=== PATIENT | female | born 1970 | race Caucasian/White ===

== ENCOUNTER 2017-11-13 07:20 | Emergency (ER) | payer MEDICAID, SELFPAY | END 2017-11-13 08:58 | disposition home or self-care (01) | PROVIDERS: Emergency Provider Emergency Medicine; Family Provider Internal Medicine Adolescent Medicine; Visit Provider Emergency Medicine | DX: J06.9 Acute upper respiratory infection, unspecified (principal); Z85.41 Personal history of malignant neoplasm of cervix uteri; J44.9 Chronic obstructive pulmonary disease, unspecified; E03.9 Hypothyroidism, unspecified; Z79.51 Long term (current) use of inhaled steroids; Z79.899 Other long term (current) drug therapy | CPT/HCPCS: 71020; 87275; 87276; 99282 ==

== ENCOUNTER → 2018-01-03 12:33 | Outpatient (CLI) | payer MEDICAID, SELFPAY ==
[2018-01-03 12:37] LABS: Adenovirus,PCR Not Detected (NotDetected); Bordetella Pertussis Not Detected (NotDetected); Chlamydophila Pneumoniae, PCR Not Detected (NotDetected); Coronavirus 229E Not Detected (NotDetected); Coronavirus NL63 Not Detected (NotDetected); Coronavirus OC43 Not Detected (NotDetected); Coronovirus HKU1,PCR Not Detected (NotDetected); Human Metapneumovirus Not Detected (NotDetected); Influenza A, PCR Not Detected (NotDetected); Influenza AH1, 2009 Not Detected (NotDetected); Influenza AH1, PCR Not Detected (NotDetected); Influenza AH3,PCR Not Detected (NotDetected); Influenza B, PCR Not Detected (NotDetected); Mycoplasma Pneumoniae, PCR Not Detected (NotDected); Parainfluenza 1, PCR Not Detected (NotDetected); Parainfluenza 2, PCR Not Detected (NotDetected); Parainfluenza 3, PCR Not Detected (NotDetected); Parainfluenza 4, PCR Not Detected (NotDetected); Respiratory Syncytial Virus Not Detected (NotDetected)
[2018-01-03 19:47] LABS: Rhinovirus/Enterovirus Detected (NotDetected)
== END ==
PROVIDERS: PCP Internal Medicine Adolescent Medicine; Visit Provider Nurse Practitioner Family
DX: R50.9 Fever, unspecified (principal); J06.9 Acute upper respiratory infection, unspecified
CPT/HCPCS: 87486; 87581; 87633; 87798

== ENCOUNTER 2018-02-26 12:18 | Emergency (ER) | payer MEDICAID, SELFPAY ==
[2018-02-26 12:31] VITALS: BP 105/65; PULSE 65; RESP 20; TEMP 36.1; O2SAT 96; BMI 24.2
--- NOTE | 2018-02-26 12:37 | HMH.EDUTC ---
[facility] [place] Disposition Clinical Impression: Pleuritis Disposition: Home, Self-Care Condition on Discharge: Good Instructions: DI for Pleurisy Additional Instructions: Take steroid as prescribed. Use warm compresses on right chest. Return to PCP if symptoms do not improve in 72 hours. Go to ER/UTC if you develop sudden extreme shortness of breath, worsening of symptoms, increasing chest pain, or if a rash erupts along right side. Prescriptions: methylPREDNISolone [Medrol] 4 mg PO DIRECTED 6 Days #1 tab.ds.pk Referrals: Jg Edwards MD [Primary Care Provider] - Time of Disposition: 13:12 Medical Decision Making - Len Inquiry Pt receiving controlled substance: No Vital Signs: 02/26/18 12:31 Temperature 96.9 F L Temperature Source Temporal Artery Scan Pulse Rate [Right Brachial] 65 Respiratory Rate 20 Blood Pressure [Right Arm] 105/65 Blood Pressure Mean [Right Arm] 78 Blood Pressure Source [Right Arm] Automatic Cuff Blood Pressure Position [Right Arm] Sitting 02 Sat by Pulse Oximetry 96 Oxygen Delivery Method Room Air [facility] [place] HPI - General Stated complaint: pain under r breast Time Seen by Provider: 02/26/18 12:50 Mode of Arrival: Ambulatory Source of Information: Patient Limitations: No Limitations Description of Symptoms (Recalled from Triage Doc. by RN): C/O PAIN RIGHT CHEST/BACK UNDER BREAST WITH RESPIRATION AND NONPRODUCTIVE COUGH SINCE SUNDAY HEENT Symptoms (Recalled from RN notes): No Resp Symptoms (Recalled from RN notes): Yes Skin Symptoms (Recalled from RN notes): No MS Symptoms (Recalled from RN notes): No Functional Status (Recalled from RN notes): N/A - History of Present Illness Provider Complaint: Patient presents with 4 days of right sided chest pain worsened by touch to the right side and deep inspiration. She has COPD and reports having a constant cough. 4 days ago her pain started on her right side along her ribs and radiated around her right anterior chest. Today she reports her pain worsening and starting along her right posterior chest. She denies ever getting chicken pox. She has taken Aliev, Ibprofen, and Gabapentin for pain which has not given her any relief. Today when even putting on her bra caused pain she decided to seek care. - Related Data Home Medications Medication Instructions Recorded Confirmed Cetirizine HCl [Zyrtec] 10 mg PO DAILY 02/26/18 02/26/18 Gabapentin [Gabapentin 300mg Cap] 300 mg PO TID 02/26/18 02/26/18 Montelukast Sodium [Singulair 10mg 10 mg PO PM 02/26/18 02/26/18 tablet] SUMAtriptan succinate [Imitrex] 100 mg PO NEEDED PRN 02/26/18 02/26/18 Previous Rx's Medication Instructions Recorded methylPREDNISolone [Medrol] 4 mg PO DIRECTED 6 Days #1 02/26/18 tab.ds.pk Allergies Allergy/AdvReac Type Severity Reaction Status Date / Time No Known Allergies Allergy Verified 02/26/18 12:37 - Worker's Comp Is this a Worker's Comp case?: No [facility] History Medical History: Reports:: Chronic Obstructive Pulmonary Disease (COPD), Migraine (Neuropathy, Allergic Rhinitis) Other Medical History: Reports: Hypothyroidism, Other (Neuropathy) Laterality Cases: Bilateral: Tonsillectomy - Social History Alcohol Intake: never - Psychiatric History Expresses thoughts of harming self/others: None Suicide Plan Description: No Plan ROS Obtained: Yes Systems reviewed as appropriate & no additional complaints - Constitutional Constitutional: Reports as per HPI - Cardiovascular Cardiovascular: Reports as per HPI - Respiratory Respiratory: Yes as per HPI, Yes cough (unchanged from her normal), No coughing up blood, Yes pain on inspiration, Yes pain with cough, No wheezing - Integumentary/Breasts Skin/Breast: Denies rash, Reports skin pain - Neurologic Neurologic: Denies tingling/numbness/burning sensations Physical Exam - General General appearance: alert, in no apparent distress - Eye Eye exam: Present: normal appearanc
--- NOTE | 2018-02-26 12:41 | ED_ITS ---
[facility] [place] Disposition Clinical Impression: Pleuritis Disposition: Home, Self-Care Condition on Discharge: Good Instructions: DI for Pleurisy Additional Instructions: Take steroid as prescribed. Use warm compresses on right chest. Return to PCP if symptoms do not improve in 72 hours. Go to ER/UTC if you develop sudden extreme shortness of breath, worsening of symptoms, increasing chest pain, or if a rash erupts along right side. Prescriptions: methylPREDNISolone [Medrol] 4 mg PO DIRECTED 6 Days #1 tab.ds.pk Referrals: Jg Edwards MD [Primary Care Provider] - Time of Disposition: 13:12 Medical Decision Making - Len Inquiry Pt receiving controlled substance: No Vital Signs: 02/26/18 12:31 Temperature 96.9 F L Temperature Source Temporal Artery Scan Pulse Rate [Right Brachial] 65 Respiratory Rate 20 Blood Pressure [Right Arm] 105/65 Blood Pressure Mean [Right Arm] 78 Blood Pressure Source [Right Arm] Automatic Cuff Blood Pressure Position [Right Arm] Sitting 02 Sat by Pulse Oximetry 96 Oxygen Delivery Method Room Air [facility] [place] HPI - General Stated complaint: pain under r breast Time Seen by Provider: 02/26/18 12:50 Mode of Arrival: Ambulatory Source of Information: Patient Limitations: No Limitations Description of Symptoms (Recalled from Triage Doc. by RN): C/O PAIN RIGHT CHEST/ BACK UNDER BREAST WITH RESPIRATION AND NONPRODUCTIVE COUGH SINCE SUNDAY HEENT Symptoms (Recalled from RN notes): No Resp Symptoms (Recalled from RN notes): Yes Skin Symptoms (Recalled from RN notes): No MS Symptoms (Recalled from RN notes): No Functional Status (Recalled from RN notes): N/A - History of Present Illness Provider Complaint: Patient presents with 4 days of right sided chest pain worsened by touch to the right side and deep inspiration. She has COPD and reports having a constant cough. 4 days ago her pain started on her right side along her ribs and radiated around her right anterior chest. Today she reports her pain worsening and starting along her right posterior chest. She denies ever getting chicken pox. She has taken Aliev, Ibprofen, and Gabapentin for pain which has not given her any relief. Today when even putting on her bra caused pain she decided to seek care. - Related Data Home Medications Medication Instructions Recorded Confirmed Cetirizine HCl [Zyrtec] 10 mg PO DAILY 02/26/18 02/26/18 Gabapentin [Gabapentin 300mg Cap] 300 mg PO TID 02/26/18 02/26/18 Montelukast Sodium [Singulair 10mg 10 mg PO PM 02/26/18 02/26/18 tablet] SUMAtriptan succinate [Imitrex] 100 mg PO NEEDED PRN 02/26/18 02/26/18 Previous Rx's Medication Instructions Recorded methylPREDNISolone [Medrol] 4 mg PO DIRECTED 6 Days #1 02/26/18 tab.ds.pk Allergies Allergy/AdvReac Type Severity Reaction Status Date / Time No Known Allergies Allergy Verified 02/26/18 12:37 - Worker's Comp Is this a Worker's Comp case?: No [facility] History Medical History: Reports:: Chronic Obstructive Pulmonary Disease (COPD), Migraine (Neuropathy, Allergic Rhinitis) Other Medical History: Reports: Hypothyroidism, Other (Neuropathy) Laterality Cases: Bilateral: Tonsillectomy - Social History Alcohol Intake: never - Psychiatric History Expresses thoughts of harming self/others: None Suicide Plan Description: No Plan
[2018-02-26 13:17] VITALS: BP 110/72; PULSE 62; RESP 20; TEMP 36.1; O2SAT 97
== END 2018-02-26 13:19 | disposition home or self-care (01) ==
PROVIDERS: Emergency Provider Emergency Medicine; Family Provider Internal Medicine Adolescent Medicine; PCP Internal Medicine Adolescent Medicine
DX: R09.1 Pleurisy (principal); J44.9 Chronic obstructive pulmonary disease, unspecified; E03.9 Hypothyroidism, unspecified
CPT/HCPCS: 99201

== ENCOUNTER → 2018-10-16 10:23 | Outpatient (CLI) | payer MEDICAID, SELFPAY ==
[2018-10-16 11:25] LABS: Basophils % 0.4 % (0.1-2.0); Eosinophils # 0.1 K/mm3 (0.0-0.4); Eosinophils % 1.3 % (0.1-12.0); Hematocrit 36.7 % (37.0-47.0); Hemoglobin 11.7 g/dL (12.2-16.2); Lymphocytes # 3.1 K/mm3 (0.7-4.5); Mean Corpuscular HGB Conc 31.9 g/dL (31.8-35.4); Mean Corpuscular Hemoglobin 29.6 pg (27.0-31.2); Mean Corpuscular Volume 92.8 fl (81-99); Mean Platelet Volume 8.2 fl (7.4-10.4); Monocytes # 0.5 K/mm3 (0.1-1.0); Monocytes % 5.2 % (1.7-9.3); Neutrophils # 5.4 K/mm3 (1.8-7.8); Neutrophils % 59.1 % (37.0-80.0); Platelet Count 381 K/mm3 (142-424); Red Blood Count 3.95 M/mm3 (4.20-5.40); Red Cell Distribution Width 13.6 % (11.5-17.5); White Blood Count 9.1 K/mm3 (4.8-10.8)
[2018-10-16 14:05] LABS: Alanine Aminotransferase 30 U/L (12-78); Albumin Level 3.8 gm/dL (3.4-5.0); Alkaline Phosphatase 140 U/L (46-116); Anion Gap 13.9 mEq/L (5-15); Aspartate Amino Transferase 15 U/L (15-37); Bilirubin,Total 0.6 mg/dL (0.2-1.0); Blood Urea Nitrogen 13 mg/dL (7-18); Carbon Dioxide 27 mmol/L (21.0-32.0); Chloride 103 mmol/L (98-107); Chol/HDL Ratio 3.3 (1-3.5); Cholesterol 215 mg/dL (140-200); Estimated Glomerular Filt Rate 106 ml/min (>60); Free Thyroxine Index 1.6 ug/dL (5.93-13.13); GFR (African American) 129 ML/MIN (>60); Globulin 3.7 gm/dl (1.3-3.2); Glucose 88 mg/dL (74-106); HDL Cholesterol 65 mg/dL (29-89); LDL Cholesterol 138 mg/dL (0-130); Potassium 3.9 mmoL/L (3.5-5.1); Sodium 140 mmol/L (136-145); T4 (Thyroxine) 6.1 ug/dl (4.7-13.3); Thyroid Stimulating Hormone 32.66 uIU/ml (0.358-3.740); Total Protein,Serum 7.5 gm/dL (6.4-8.2); Triglycerides 61 mg/dL (30-200); Triiodothryronine (T3) Uptake 27 % (31-39); VLDL Cholesterol 12 mg/dL (0-40)
[2018-10-16 14:18] LABS: Calcium 8.9 mg/dL (8.5-10.1)
== END ==
PROVIDERS: PCP Internal Medicine Adolescent Medicine; Visit Provider Nurse Practitioner Family
DX: Z00.00 Encounter for general adult medical examination without abnormal findings (principal); E03.9 Hypothyroidism, unspecified; R63.5 Abnormal weight gain
CPT/HCPCS: 36415; 80053; 80061; 84436; 84443; 84479; 85025

== ENCOUNTER → 2019-04-14 14:49 | Outpatient (CLI) | payer MEDICAID, SELFPAY ==
[2019-04-14 15:22] LABS: Basophils % 0.4 % (0.1-2.0); Eosinophils # 0.1 K/mm3 (0.0-0.4); Eosinophils % 1.3 % (0.1-12.0); Hemoglobin 11.9 g/dL (12.2-16.2); Lymphocytes # 3.1 K/mm3 (0.7-4.5); Lymphocytes % 34.8 % (10-50); Mean Corpuscular HGB Conc 33.9 g/dL (31.8-35.4); Mean Corpuscular Hemoglobin 30.2 pg (27.0-31.2); Mean Corpuscular Volume 88.8 fl (81-99); Mean Platelet Volume 7.5 fl (7.4-10.4); Monocytes # 0.4 K/mm3 (0.1-1.0); Monocytes % 4.4 % (1.7-9.3); Neutrophils # 5.2 K/mm3 (1.8-7.8); Neutrophils % 59.1 % (37.0-80.0); Platelet Count 351 K/mm3 (142-424); Red Blood Count 3.94 M/mm3 (4.20-5.40); Red Cell Distribution Width 13.5 % (11.5-17.5); White Blood Count 8.9 K/mm3 (4.8-10.8)
[2019-04-14 17:43] LABS: Blood Urea Nitrogen 16 mg/dL (7-18); Calcium 8.5 mg/dL (8.5-10.1); Carbon Dioxide 24 mmol/L (21.0-32.0); Chloride 101 mmol/L (98-107); Creatinine,Serum 0.94 mg/dL (0.55-1.02); Estimated Glomerular Filt Rate 63 ml/min (>60); Free T4 (Free Thyroxine) 0.95 ng/dl (0.76-1.46); GFR (African American) 77 ML/MIN (>60); Glucose 87 mg/dL (74-106); Sodium 138 mmol/L (136-145); Thyroid Stimulating Hormone 11.29 uIU/ml (0.358-3.740)
[2019-04-18 13:14] LABS: HSV, IgM I/II Combination 1.12 Ratio (0.00-0.90)
== END ==
PROVIDERS: Visit Provider Nurse Practitioner Family
DX: E03.9 Hypothyroidism, unspecified (principal); N76.0 Acute vaginitis; Z86.2 Personal history of diseases of the blood and blood-forming organs and certain disorders involving the immune mechanism
CPT/HCPCS: 36415; 80048; 80053; 84439; 84443; 85025; 86695; 86790

== ENCOUNTER → 2019-04-28 12:53 | Outpatient (CLI) | payer MEDICAID, SELFPAY ==
--- NOTE | 2019-04-28 13:15 | CA_ITS ---
PROCEDURE: 2-D M-mode and color Doppler study INDICATIONS FOR THE TEST: Chest pain COPD+ Heart Murmur Tobacco Smoking Palpitations Fatigue Syncope Edema Hypertension Diabetes Mellitus Rheumatic Fever SOB+KELLEY+Obesity Hyperlipidemia Family History HD Additional History TDS-OVERLAYING LUNG PATIENT INFORMATION HEIGHT: 64 WEIGHT:171 GENDER: Female B/P:108/65 2-D/M-MODE INTERPRETATION: 2-D MEASUREMENTS OBSERVED VALUES IN CMS Right Ventricular Dimension (RVDd) 1.8 Interventricular Septum (Thickness)(IVsd) 0.8 Left Ventricular Internal Dimensions(LVIDd) 4.8 Left Ventricular Posterior Wall (Thickness)(LVPWd) 0.7 Aortic Root 2.5 Aortic Cusp Separation 2.0 Left Atrial Dimensions (LAD) 3.1 2D 1. Technically difficult study because of the patient's factor and poor acoustic windows 2. Left atrium is normal size, left ventricle is normal size, there is no concentric left ventricular hypertrophy, visually estimated ejection fraction 55% with no regional wall motion abnormality. 3. The right atrium and right ventricle are normal size and contractility. 4. The aortic, mitral and tricuspid valvular grossly normal. 5. The pulmonic valve is poorly present. 6. No significant pericardial effusion noted. DOPPLER INTERROGATION: Doppler interrogation of the aortic, mitral and tricuspid valvular presence of mild mitral and tricuspid regurgitation, tricuspid regurgitation jet velocity is inadequate for calculation of the right ventricular systolic pressure, diastolic parameters are within normal range. CONCLUSION: 1. Normal left ventricular size, preserved left ventricular systolic function, visually estimated ejection fraction of 55% with no regional wall motion abnormality, diastolic parameters are within normal range. 2. Mild mitral and tricuspid regurgitation 3. No significant pericardial effusion noted.
== END ==
PROVIDERS: PCP Internal Medicine Adolescent Medicine; Visit Provider Nurse Practitioner Family
DX: R60.9 Edema, unspecified (principal); R06.09 Other forms of dyspnea
CPT/HCPCS: 93306

== ENCOUNTER 2019-05-21 12:45 | Emergency (ER) | payer MEDICAID, SELFPAY ==
[2019-05-21 12:59] VITALS: BP 121/64; PULSE 84; RESP 18; TEMP 37.1; O2SAT 96; BMI 29.3
[2019-05-21 14:20] VITALS: BP 113/75; PULSE 80; RESP 20; TEMP 36.5; O2SAT 96
--- NOTE | 2019-05-21 15:04 | HMH.EDGENADL ---
ED Disposition Clinical Impression: Sacroiliac inflammation Disposition: Home, Self-Care Condition on Discharge: Good Instructions: DI for Acute Pain -- Adult, DI Sacroiliac Joint Dysfunction Prescriptions: Hydrocodone/Acetaminophen [[place] 7.5-325 Tablet] 1 tab PO QID PRN 3 Days #10 tab PRN Reason: Mild To Moderate Pain predniSONE [Prednisone 50mg Tab] 50 mg PO DAILY 5 Days #5 tab Referrals: Jg Edwards MD [Primary Care Provider] - Forms: Work/School Release Time of Disposition: 18:39 - Critical Care Critical Care Time: No Attestation: On 05/21/19, the high probability of a clinically significant, sudden or life threatening deterioration of the following system(s) required my full and direct attention, intervention and personal management. The time I documented below is in addition to time spent performing reported procedures but includes the following listed in this critical care notation. Medical Decision Making - Medical Records Medical records reviewed: Yes: I reviewed the patient's medical records. - Len Inquiry Pt receiving controlled substance: No Len was queried for this patient: No Vital Signs: 05/21/19 12:59 05/21/19 14:20 05/21/19 18:49 Temperature 98.8 F 97.7 F 98.3 F Temperature Source Oral Oral Oral Pulse Rate 69 Pulse Rate [Left Radial] 84 80 Respiratory Rate 18 20 17 Blood Pressure 133/70 Blood Pressure [Right Arm] 121/64 113/75 Blood Pressure Mean [Right Arm] 83 87 Blood Pressure Source Automatic Cuff Blood Pressure Source [Right Arm] Automatic Cuff Automatic Cuff Blood Pressure Position Sitting Blood Pressure Position [Right Arm] Sitting Sitting 02 Sat by Pulse Oximetry 96 96 Oxygen Delivery Method Room Air Room Air Room Air - Lab Data Lab results reviewed: Yes: I reviewed the patient's lab results. Lab Results 05/21/19 15:40: WBC 11.1 H, RBC 4.30, Hgb 12.7, Hct 39.4, MCV 91.8, MCH 29.6, MCHC 32.3, RDW 13.6, Plt Count 435 H, MPV 8.3, Neut % (Auto) 64.9, Lymph % (Auto) 28.6, [place] % (Auto) 4.0, Eos % (Auto) 2.0, Baso % (Auto) 0.4, Neut # (Auto) 7.2, Lymph # (Auto) 3.2, [place] # (Auto) 0.4, Eos # (Auto) 0.2, Baso # (Auto) 0.1 05/21/19 15:40: Sodium 140, Potassium 3.3 L, Chloride 100, Carbon Dioxide 28, Anion Gap 15.3 H, BUN 13, Creatinine 0.85, Estimated Creat Clear 98, Estimated GFR 71, Est GFR ( Amer) 86, Glucose 93, Calcium 9.2, Total Bilirubin 0.5, AST 34, ALT 63, Alkaline Phosphatase 170 H, Total Protein 8.0, Albumin 3.7, Globulin 4.3 H, Albumin/Globulin Ratio 0.9 L 05/21/19 18:15: Urine Color Yellow, Urine Appearance Clear, Urine pH 6.5, Ur Specific [place] 1.015, Urine Protein Negative, Urine Glucose (UA) Negative, Urine Ketones Negative, Urine Blood Negative, Urine Nitrate Negative, Urine Bilirubin Negative, Urine Urobilinogen 0.2, Ur Leukocyte Esterase Negative, Urine WBC Occasional, Ur Squamous Epith Cells 3-5, Urine Bacteria Trace Result diagrams: 05/21/19 15:40 05/21/19 15:40 Orders (Tests/Meds): ED MEDICATIONS Discontinued Medications Generic Name Dose Route Start Last Admin Trade Name Freq PRN Reason Stop Dose Admin Dexamethasone Sodium Phosphate 8 mg 05/21/19 18:40 05/21/19 18:48 Decadron 4mg/Ml 1ml Vial IV 05/21/19 18:41 8 mg ONCE ONE Administration Lactated Ringer's 1,000 mls @ 999 mls/hr 05/21/19 15:30 05/21/19 15:41 Lactated Ringer's 1000 Ml Bag IV 05/21/19 16:30 999 mls/hr .Q1H1M TRANG Administration Ketorolac Tromethamine 30 mg 05/21/19 15:19 05/21/19 15:41 Toradol 30mg/Ml Vial IV 05/21/19 15:20 30 mg ONCE ONE Administration General Adult HPI - General Chief complaint: PAIN Stated complaint: Back and Hip Pain Time Seen by Provider: 05/21/19 13:10 Mode of Arrival: Ambulatory Limitations: No Limitations Description of Symptoms (Recalled from ER Triage Doc. by RN): c/o left hip and back pain that is chronic but has increased with pain over the past few weeks. She has had to increase
--- NOTE | 2019-05-21 15:15 | CT_ITS ---
CT abdomen pelvis wo con CLINICAL INDICATION: ITS.REASON: llq pain, severe diarrhea ORDERING PHYSICIAN: Esteban Herzog MD PATIENT AGE: 48 years COMPARISON: None TECHNIQUE: Axial images obtained with sagittal and coronal reformats. All CT scans at the facility use one or more dose reduction, viz: automated exposure control, ma/kV adjustment per patient size (including targeted exams where dose is matched to indication, i.e. head), or iterative reconstruction technique. PROCEDURE: Oral Contrast: None IV Contrast: None . FINDINGS: Lower thorax: No acute finding ABDOMEN: Liver: No masses or biliary dilatation. Gallbladder: Nondistended. No radio opaque stones. Pancreas: No masses or peripancreatic fluid collections. Spleen: Unremarkable. Adrenals: Unremarkable Kidneys/ureters: There is a 1 mm stone in the lower pole calyx of the right kidney. There is no hydronephrosis bilaterally. Visualized portions of the ureter are normal. Stomach bowel: GI tract is unremarkable except there are one or 2 small diverticula involving distal descending colon. There is no pericolonic inflammation or fluid collections. Appendix: No evidence of appendicitis. PELVIS: Reproductive: Unremarkable Bladder: Nondistended. No obvious stones or masses. ABDOMEN & PELVIS: Peritoneum: No abnormal fluid collections. No obvious inflammatory changes. No free air. Lymph nodes: No enlarged lymph nodes apparent. Vasculature: No evidence of abdominal aortic aneurysm. No retroperitoneal hemorrhage evident. Bones: No acute fracture IMPRESSION: Nonobstructing right nephrolithiasis. Mesenteric hazy density with small lymph nodes suggesting benign panniculitis. Diffuse narrowing of the colon from peristalsis possibly related to spasm. No other acute process.
--- NOTE | 2019-05-21 15:20 | ED_ITS ---
ED Disposition Clinical Impression: Sacroiliac inflammation Disposition: Home, Self-Care Condition on Discharge: Good Instructions: DI for Acute Pain -- Adult, DI Sacroiliac Joint Dysfunction Prescriptions: Hydrocodone/Acetaminophen [[place] 7.5-325 Tablet] 1 tab PO QID PRN 3 Days #10 tab PRN Reason: Mild To Moderate Pain predniSONE [Prednisone 50mg Tab] 50 mg PO DAILY 5 Days #5 tab Referrals: Jg Edwards MD [Primary Care Provider] - Forms: Work/School Release Time of Disposition: 18:39 - Critical Care Critical Care Time: No Attestation: On 05/21/19, the high probability of a clinically significant, sudden or life threatening deterioration of the following system(s) required my full and direct attention, intervention and personal management. The time I documented below is in addition to time spent performing reported procedures but includes the following listed in this critical care notation. Medical Decision Making - Medical Records Medical records reviewed: Yes: I reviewed the patient's medical records. - Len Inquiry Pt receiving controlled substance: No Len was queried for this patient: No Vital Signs: 05/21/19 12:59 05/21/19 14:20 05/21/19 18:49 Temperature 98.8 F 97.7 F 98.3 F Temperature Source Oral Oral Oral Pulse Rate 69 Pulse Rate [Left Radial] 84 80 Respiratory Rate 18 20 17 Blood Pressure 133/70 Blood Pressure [Right Arm] 121/64 113/75 Blood Pressure Mean [Right Arm] 83 87 Blood Pressure Source Automatic Cuff Blood Pressure Source [Right Arm] Automatic Cuff Automatic Cuff Blood Pressure Position Sitting Blood Pressure Position [Right Arm] Sitting Sitting 02 Sat by Pulse Oximetry 96 96 Oxygen Delivery Method Room Air Room Air Room Air - Lab Data Lab results reviewed: Yes: I reviewed the patient's lab results. Lab Results 05/21/19 15:40: WBC 11.1 H, RBC 4.30, Hgb 12.7, Hct 39.4, MCV 91.8, MCH 29.6, MCHC 32.3, RDW 13.6, Plt Count 435 H, MPV 8.3, Neut % (Auto) 64.9, Lymph % (Auto) 28.6, [place] % (Auto) 4.0, Eos % (Auto) 2.0, Baso % (Auto) 0.4, Neut # (Auto) 7.2, Lymph # (Auto) 3.2, [place] # (Auto) 0.4, Eos # (Auto) 0.2, Baso # (Auto) 0.1 05/21/19 15:40: Sodium 140, Potassium 3.3 L, Chloride 100, Carbon Dioxide 28, Anion Gap 15.3 H, BUN 13, Creatinine 0.85, Estimated Creat Clear 98, Estimated GFR 71, Est GFR ( Amer) 86, Glucose 93, Calcium 9.2, Total Bilirubin 0.5, AST 34, ALT 63, Alkaline Phosphatase 170 H, Total Protein 8.0, Albumin 3.7, Globulin 4.3 H, Albumin/Globulin Ratio 0.9 L 05/21/19 18:15: Urine Color Yellow, Urine Appearance Clear, Urine pH 6.5, Ur Specific [place] 1.015, Urine Protein Negative, Urine Glucose (UA) Negative, Urine Ketones Negative, Urine Blood Negative, Urine Nitrate Negative, Urine Bilirubin Negative, Urine Urobilinogen 0.2, Ur Leukocyte Esterase Negative, Urine WBC Occasional, Ur Squamous Epith Cells 3-5, Urine Bacteria Trace Result diagrams: 05/21/19 15:40 05/21/19 15:40 Orders (Tests/Meds): ED MEDICATIONS Discontinued Medications Generic Name Dose Route Start Last Admin Trade Name Freq PRN Reason Stop Dose Admin Dexamethasone Sodium Phosphate 8 mg 05/21/19 18:40 05/21/19 18:48 Decadron 4mg/Ml 1ml Vial IV 05/21/19 18:41 8 mg
--- NOTE | 2019-05-21 15:33 | PC.NURSE ---
notified Rad of ct order
--- NOTE | 2019-05-21 15:49 | PC.NURSE ---
Pt to rad
[2019-05-21 15:50] LABS: Basophils # 0.1 K/mm3 (0-0.2); Basophils % 0.4 % (0.1-2.0); Eosinophils # 0.2 K/mm3 (0.0-0.4); Hematocrit 39.4 % (37.0-47.0); Hemoglobin 12.7 g/dL (12.2-16.2); Lymphocytes # 3.2 K/mm3 (0.7-4.5); Lymphocytes % 28.6 % (10-50); Mean Corpuscular HGB Conc 32.3 g/dL (31.8-35.4); Mean Corpuscular Hemoglobin 29.6 pg (27.0-31.2); Mean Corpuscular Volume 91.8 fl (81-99); Mean Platelet Volume 8.3 fl (7.4-10.4); Monocytes # 0.4 K/mm3 (0.1-1.0); Neutrophils # 7.2 K/mm3 (1.8-7.8); Neutrophils % 64.9 % (37.0-80.0); Platelet Count 435 K/mm3 (142-424); Red Cell Distribution Width 13.6 % (11.5-17.5); White Blood Count 11.1 K/mm3 (4.8-10.8)
[2019-05-21 16:01] LABS: Alanine Aminotransferase 63 U/L (12-78); Albumin Level 3.7 gm/dL (3.4-5.0); Albumin/Globulin Ratio 0.9 (1.1-1.8); Alkaline Phosphatase 170 U/L (46-116); Anion Gap 15.3 mEq/L (5-15); Aspartate Amino Transferase 34 U/L (15-37); Bilirubin,Total 0.5 mg/dL (0.2-1.0); Blood Urea Nitrogen 13 mg/dL (7-18); Calcium 9.2 mg/dL (8.5-10.1); Carbon Dioxide 28 mmol/L (21.0-32.0); Chloride 100 mmol/L (98-107); Creatinine Clearance Estimated 98 mL/min (50-200); Creatinine,Serum 0.85 mg/dL (0.55-1.02); Estimated Glomerular Filt Rate 71 ml/min (>60); GFR (African American) 86 ML/MIN (>60); Globulin 4.3 gm/dl (1.3-3.2); Glucose 93 mg/dL (74-106); Potassium 3.3 mmoL/L (3.5-5.1); Sodium 140 mmol/L (136-145)
[2019-05-21 18:19] LABS: Microscopic, Urine URINE MICROSCOPIC (MICROSCOPIC)
[2019-05-21 18:21] LABS: Appearance,Urine CLEAR (Clear); Bilirubin,Urine Negative (Negative); Blood, Urine Negative (Negative); Color,Urine YELLOW (Yellow); Glucose,Urine (UA) Negative (Negative); Ketones,Urine Negative (Negative); Leukocyte Esterase,Urine Negative (Negative); Nitrate,Urine Negative (Negative); PH,Urine 6.5 (5.0-8.5); Protein,Urine Negative (Negative); Specific Gravity, Urine 1.015 (1.005-1.030); Urobilinogen,Urine 0.2 EU/dl (0.2)
[2019-05-21 18:34] LABS: Bacteria,Urine Trace /lpf; WBC,Urine Occasional #/hpf (0-3)
[2019-05-21 18:49] VITALS: BP 133/70; PULSE 69; RESP 17; TEMP 36.8; O2SAT 98
== END 2019-05-21 18:57 | disposition home or self-care (01) ==
PROVIDERS: Emergency Provider Emergency Medicine; PCP Internal Medicine Adolescent Medicine
DX: M46.1 Sacroiliitis, not elsewhere classified (principal); J44.9 Chronic obstructive pulmonary disease, unspecified; E03.9 Hypothyroidism, unspecified
CPT/HCPCS: 74176; 80053; 81001; 85025; 96365; 96375; 99283

== ENCOUNTER → 2019-06-27 14:51 | Outpatient (CLI) | payer MEDICAID, SELFPAY ==
--- NOTE | 2019-06-27 15:26 | US_ITS ---
US transvaginal HISTORY: Pelvic pain ITS.REASON: lower abd pain,h/o cervical ca ORDERING PHYSICIAN: Johana Vaughn APRN PATIENT AGE: 48 years Comparison: None FINDINGS: There has been a prior hysterectomy. The right ovary has also been removed. The left ovary has an unremarkable appearance measuring 18 x 17 mm. No adnexal mass or cul-de-sac fluid. No pelvic mass apparent. IMPRESSION: Prior hysterectomy and right oophorectomy. Unremarkable appearing left ovary with no pelvic mass or fluid collection apparent
== END ==
PROVIDERS: PCP Internal Medicine Adolescent Medicine; Visit Provider Nurse Practitioner Family
DX: R10.30 Lower abdominal pain, unspecified (principal); Z85.41 Personal history of malignant neoplasm of cervix uteri
CPT/HCPCS: 76830

== ENCOUNTER → 2019-07-24 07:10 | Outpatient (CLI) | payer MEDICAID, SELFPAY ==
[2019-07-24 07:34] LABS: Basophils # 0.1 K/mm3 (0-0.2); Basophils % 0.6 % (0.1-2.0); Eosinophils # 0.2 K/mm3 (0.0-0.4); Eosinophils % 1.9 % (0.1-12.0); Hematocrit 36.7 % (37.0-47.0); Hemoglobin 11.8 g/dL (12.2-16.2); Lymphocytes # 3.5 K/mm3 (0.7-4.5); Lymphocytes % 41.4 % (10-50); Mean Corpuscular HGB Conc 32.2 g/dL (31.8-35.4); Mean Corpuscular Hemoglobin 29.3 pg (27.0-31.2); Mean Corpuscular Volume 91.2 fl (81-99); Mean Platelet Volume 7.6 fl (7.4-10.4); Monocytes # 0.5 K/mm3 (0.1-1.0); Monocytes % 5.8 % (1.7-9.3); Neutrophils # 4.3 K/mm3 (1.8-7.8); Neutrophils % 50.3 % (37.0-80.0); Platelet Count 404 K/mm3 (142-424); Red Blood Count 4.03 M/mm3 (4.20-5.40); Red Cell Distribution Width 13.6 % (11.5-17.5); White Blood Count 8.5 K/mm3 (4.8-10.8)
[2019-07-24 10:15] LABS: Alanine Aminotransferase 26 U/L (12-78); Albumin Level 3.6 gm/dL (3.4-5.0); Albumin/Globulin Ratio 1.1 (1.1-1.8); Alkaline Phosphatase 135 U/L (46-116); Anion Gap 15.8 mEq/L (5-15); Aspartate Amino Transferase 18 U/L (15-37); Bilirubin,Total 0.4 mg/dL (0.2-1.0); Blood Urea Nitrogen 15 mg/dL (7-18); Calcium 8.8 mg/dL (8.5-10.1); Carbon Dioxide 23 mmol/L (21.0-32.0); Chloride 105 mmol/L (98-107); Chol/HDL Ratio 5.5 (1-3.5); Cholesterol 191 mg/dL (140-200); Creatinine,Serum 0.79 mg/dL (0.55-1.02); Estimated Glomerular Filt Rate 77 ml/min (>60); Free T4 (Free Thyroxine) 0.77 ng/dl (0.76-1.46); GFR (African American) 94 ML/MIN (>60); Globulin 3.2 gm/dl (1.3-3.2); Glucose 107 mg/dL (74-106); HDL Cholesterol 35 mg/dL (29-89); LDL Cholesterol 120 mg/dL (0-130); Potassium 3.8 mmoL/L (3.5-5.1); Sodium 140 mmol/L (136-145); Thyroid Stimulating Hormone 11.96 uIU/ml (0.358-3.740); Total Protein,Serum 6.8 gm/dL (6.4-8.2); Triglycerides 182 mg/dL (30-200); VLDL Cholesterol 36 mg/dL (0-40)
[2019-07-25 08:13] LABS: Hep A Ab, IgM Negative (Negative); Hepatitis B Core Antibody IgM Negative (Negative); Hepatitis B Surface Antigen Negative (Negative)
[2019-07-25 14:22] LABS: Vitamin B12 232 pg/mL (232-1245); Vitamin D 25 Hydroxy 12.5 ng/mL (30.0-100.0)
[2019-07-25 14:23] LABS: HIV Screen 4th Generation wRfx Non Reactive (Non Reactive); Hepatitis C Antibody <0.1 s/co ratio (0.0-0.9); Rapid Plasma Reagin Ab Titer Non Reactive (NonRea<1:1)
== END ==
PROVIDERS: Visit Provider Nurse Practitioner Family
DX: E03.9 Hypothyroidism, unspecified (principal); E78.5 Hyperlipidemia, unspecified; Z86.2 Personal history of diseases of the blood and blood-forming organs and certain disorders involving the immune mechanism; Z11.3 Encounter for screening for infections with a predominantly sexual mode of transmission
CPT/HCPCS: 36415; 80053; 80061; 80074; 82607; 82652; 84439; 84443; 85025; 86592; 86703; G0432

== ENCOUNTER → 2019-07-31 09:40 | Outpatient (CLI) | payer MEDICAID, SELFPAY ==
--- NOTE | 2019-07-31 09:44 | US_ITS ---
PROCEDURE: US THYROID CLINICAL INDICATION: HYPOTHYROIDISM COMPARISON: No exams were available for comparison FINDINGS: Right lobe: 5.4 x 1.8 x 1.8 cm with heterogeneous echogenicity. 13 mm isoechoic nodule upper pole well-circumscribed. 18 x 13 mm hypoechoic nodule mid polar region posteriorly, 12 mm isoechoic nodule lower pole, 13 mm complex nodule lower pole somewhat irregular in nature., 2 x 1 cm hypoechoic nodule lower pole Left lobe: 4.2 x 1.5 x 1.7 cm. 7 x 7 mm isoechoic nodule mid polar region, 9 mm isoechoic nodule lower pole Isthmus: Mildly thickened at 5 mm Additional findings: IMPRESSION: Multinodular goiter Dictated by: Aquilino Lynn MD 07/31/2019 15:21 Electronically signed by Aquilino Lynn MD in [place] 07/31/2019 15:24
== END ==
PROVIDERS: PCP Nurse Practitioner Family; Visit Provider Nurse Practitioner Family
DX: E03.9 Hypothyroidism, unspecified (principal)
CPT/HCPCS: 76536

== ENCOUNTER → 2019-08-21 09:49 | Outpatient (CLI) | payer MEDICAID, SELFPAY ==
--- NOTE | 2019-08-21 09:52 | MM_ITS ---
PROCEDURE: MM DIG SCREENING MAMM BI W/CAD CLINICAL INDICATION: SCREENING There is a history of breast cancer in the patient's paternal grandmother. COMPARISON: DMSB DIGITAL MAMM-SCREEN BILATERAL from 11/18/2012 TECHNIQUE: Standard CC and MLO images were obtained. R2 CAD reviewed. FINDINGS: Moderate diffuse somewhat heterogenic fibroglandular densities are seen in the central portions of both breasts and the findings of bilateral and symmetrical. There is no new or suspicious lesion in either breast and no suspicious microcalcifications. IMPRESSION: Moderate breast density with no suspicious lesions seen BI-RAD Category: 1 Negative FOLLOW-UP: 1YR 1 Year Follow-up (A letter has been sent to the patient regarding results of the study.) Dictated by: Dr. Zak Eisenberg MD 08/25/2019 16:[address] Zak Eisenberg MD in [place] 08/25/2019 16:22
== END ==
PROVIDERS: PCP Internal Medicine Adolescent Medicine; Visit Provider Nurse Practitioner Family
DX: Z12.31 Encounter for screening mammogram for malignant neoplasm of breast (principal)
CPT/HCPCS: 77067

== ENCOUNTER → 2019-09-03 09:49 | Outpatient (CLI) | payer MEDICAID, SELFPAY ==
--- NOTE | 2019-09-03 09:51 | US_ITS ---
PROCEDURE: US BIOPSY THYROID CLINICAL INDICATION: Goiter Thyroid nodules COMPARISON: US THYROID from 07/31/2019 TECHNIQUE: Following obtaining informed consent, using aseptic technique and local anesthesia with buffered lidocaine, fine-needle aspiration was performed of the nodule of interest using sonographic guidance. 3 passes were made into the nodule with a 21-gauge needle. Specimen was given to cytology. FINDINGS: CYTOLOGY: Nondiagnostic specimen IMPRESSION: Status post ultrasound-guided fine needle aspiration of the dominant nodule in the lower pole on the right. The specimen was nondiagnostic. Repeat FNA can be performed with pathologist present if clinically desired. The patient tolerated the procedure well without evidence of immediate complications and left the ultrasound suite in stable condition. Dictated by: Aquilino Lynn MD 09/05/2019 16:07 Electronically signed by Aquilino Lynn MD in [facility] 09/05/2019 16:07
== END ==
PROVIDERS: PCP Internal Medicine Adolescent Medicine; Visit Provider Otolaryngology
DX: E04.1 Nontoxic single thyroid nodule (principal)
CPT/HCPCS: 10005; 76942

== ENCOUNTER → 2019-10-20 15:31 | Outpatient (CLI) | payer OTHER, SELFPAY ==
[2019-10-20 15:59] LABS: Basophils # 0.1 K/mm3 (0-0.2); Basophils % 0.5 % (0.1-2.0); Eosinophils # 0.2 K/mm3 (0.0-0.4); Eosinophils % 1.5 % (0.1-12.0); Hematocrit 37.4 % (37.0-47.0); Hemoglobin 12.1 g/dL (12.2-16.2); Lymphocytes # 3.8 K/mm3 (0.7-4.5); Lymphocytes % 38.3 % (10-50); Mean Corpuscular HGB Conc 32.4 g/dL (31.8-35.4); Mean Corpuscular Hemoglobin 30.2 pg (27.0-31.2); Mean Corpuscular Volume 93.2 fl (81-99); Mean Platelet Volume 8.6 fl (7.4-10.4); Monocytes # 0.4 K/mm3 (0.1-1.0); Monocytes % 4.1 % (1.7-9.3); Neutrophils # 5.6 K/mm3 (1.8-7.8); Neutrophils % 55.7 % (37.0-80.0); Platelet Count 385 K/mm3 (142-424); Red Blood Count 4.01 M/mm3 (4.20-5.40); Red Cell Distribution Width 13.3 % (11.5-17.5)
[2019-10-20 18:33] LABS: Anion Gap 12.8 mEq/L (5-15); Blood Urea Nitrogen 10 mg/dL (7-18); Calcium 8.8 mg/dL (8.5-10.1); Carbon Dioxide 25 mmol/L (21.0-32.0); Chloride 104 mmol/L (98-107); Creatinine,Serum 0.77 mg/dL (0.55-1.02); Estimated Glomerular Filt Rate 79 ml/min (>60); Free T4 (Free Thyroxine) 0.78 ng/dl (0.76-1.46); GFR (African American) 96 ML/MIN (>60); Glucose 91 mg/dL (74-106); Potassium 3.8 mmoL/L (3.5-5.1); Sodium 138 mmol/L (136-145); Thyroid Stimulating Hormone 7.93 uIU/ml (0.358-3.740)
[2019-10-22 11:45] LABS: Vitamin B12 209 pg/mL (232-1245)
== END ==
PROVIDERS: Visit Provider Nurse Practitioner Family
DX: E03.9 Hypothyroidism, unspecified (principal); R60.9 Edema, unspecified; D64.9 Anemia, unspecified; E53.8 Deficiency of other specified B group vitamins; E55.9 Vitamin D deficiency, unspecified
CPT/HCPCS: 36415; 80048; 82607; 82652; 84439; 84443; 85025

== ENCOUNTER → 2019-11-04 10:15 | Outpatient (CLI) | payer OTHER, SELFPAY ==
[2019-11-04 12:05] LABS: Uric Acid 3.3 mg/dL (2.6-7.2)
== END ==
PROVIDERS: Visit Provider Nurse Practitioner Family
DX: M79.672 Pain in left foot (principal); M79.89 Other specified soft tissue disorders
CPT/HCPCS: 36415; 84550

== ENCOUNTER → 2019-12-10 08:51 | Outpatient (CLI) | payer OTHER, SELFPAY ==
--- NOTE | 2019-12-10 08:52 | FL_ITS ---
PROCEDURE: FL BARIUM SWALLOW CLINICAL INDICATION: difficulty swallowing COMPARISON: US BIOPSY THYROID from 09/03/2019 TECHNIQUE: In the upright position the patient was observed to swallow barium in both the AP and lateral view. The cervical esophagus was examined under fluoroscopy with images obtained. The patient was then placed prone in the right anterior oblique position and was observed to swallow barium with Valsalva technique . FLUOROSCOPY TIME: 54 seconds FINDINGS: There was no evidence of aspiration. There was normal peristalsis. No filling defects or mucosal abnormalities. No masses or strictures.. There was no external compression evident upon the esophagus. There is a small sliding hiatal hernia reproduced with Valsalva IMPRESSION: Small sliding hiatal hernia otherwise negative barium swallow No evidence esophageal deviation or compression in the neck Dictated by: Aquilino Lynn MD 12/11/2019 09:28 Electronically signed by Aquilino Lynn MD in [facility] 12/11/2019 09:28
== END ==
PROVIDERS: PCP Internal Medicine Adolescent Medicine; Visit Provider Otolaryngology
DX: R13.10 Dysphagia, unspecified (principal); E04.9 Nontoxic goiter, unspecified
CPT/HCPCS: 74220

== ENCOUNTER → 2019-12-25 12:51 | Outpatient (CLI) | payer OTHER, SELFPAY ==
--- NOTE | 2019-12-25 12:57 | XR_ITS ---
PROCEDURE: XR FOOT WT BEARING RT 3V CLINICAL INDICATION: foot pain COMPARISON: FTL3 FOOT-LT-3 VIEWS from 04/22/2014 FTR3 FOOT-RT-3 VIEWS from 09/18/2014 FTR3 FOOT-RT-3 VIEWS from 10/01/2014 FINDINGS: No fracture or dislocation. No lytic or blastic change. There is normal mineralization. The joint spaces are well-preserved. No significant degenerative/arthritic changes. No erosive changes evident. Other findings:None. IMPRESSION: Negative right Dictated by: Aquilino Lynn MD 12/25/2019 14:59 Electronically signed by Aquilino Lynn MD in [facility] 12/25/2019 14:59
--- NOTE | 2019-12-25 12:57 | XR_ITS ---
PROCEDURE: XR FOOT WT BEARING LT 3V CLINICAL INDICATION: foot pain COMPARISON: FTL3 FOOT-LT-3 VIEWS from 04/22/2014 FTR3 FOOT-RT-3 VIEWS from 09/18/2014 FTR3 FOOT-RT-3 VIEWS from 10/01/2014 FINDINGS: No fracture or dislocation. No lytic or blastic change. There is normal mineralization. The joint spaces are well-preserved. No significant degenerative/arthritic changes. No erosive changes evident. Other findings:None. IMPRESSION: Negative left foot Dictated by: Aquilino Lynn MD 12/25/2019 15:00 Electronically signed by Aquilino Lynn MD in [facility] 12/25/2019 15:00
== END ==
PROVIDERS: PCP Nurse Practitioner Family; Visit Provider Podiatrist
DX: M79.672 Pain in left foot (principal); M79.671 Pain in right foot
CPT/HCPCS: 73630

== ENCOUNTER → 2020-01-29 16:15 | Outpatient (CLI) | payer OTHER, SELFPAY ==
[2020-01-29 16:44] LABS: Basophils % 0.3 % (0.1-2.0); Eosinophils # 0.2 K/mm3 (0.0-0.4); Eosinophils % 2.2 % (0.1-12.0); Hematocrit 39.2 % (37.0-47.0); Hemoglobin 12.7 g/dL (12.2-16.2); Lymphocytes # 3.6 K/mm3 (0.7-4.5); Mean Corpuscular HGB Conc 32.4 g/dL (31.8-35.4); Mean Corpuscular Hemoglobin 29.8 pg (27.0-31.2); Monocytes # 0.4 K/mm3 (0.1-1.0); Monocytes % 4.2 % (1.7-9.3); Neutrophils # 5.7 K/mm3 (1.8-7.8); Neutrophils % 57.3 % (37.0-80.0); Platelet Count 399 K/mm3 (142-424); Red Blood Count 4.26 M/mm3 (4.20-5.40); Red Cell Distribution Width 13.3 % (11.5-17.5)
[2020-01-29 17:29] LABS: Anion Gap 11.8 mEq/L (5-15); Blood Urea Nitrogen 11 mg/dl (7-17); Calcium 9.8 mg/dl (8.4-10.2); Carbon Dioxide 26 mmol/L (22.0-30.0); Chloride 104 mmol/L (98-107); Estimated Glomerular Filt Rate 106 ml/min (>60); GFR (African American) 128 ML/MIN (>60); Glucose 88 mg/dl (74-100); Potassium 3.8 mmoL/L (3.5-5.1); Sodium 138 mmol/L (136-145)
[2020-01-31 20:42] LABS: Vitamin B12 259 pg/mL (232-1245); Vitamin D 25 Hydroxy 9.9 ng/mL (30.0-100.0)
== END ==
PROVIDERS: Visit Provider Nurse Practitioner Family
DX: E03.9 Hypothyroidism, unspecified (principal); E53.8 Deficiency of other specified B group vitamins; E55.9 Vitamin D deficiency, unspecified
CPT/HCPCS: 36415; 80048; 82607; 82652; 84443; 85025

== ENCOUNTER → 2020-04-28 11:30 | Outpatient (CLI) | payer OTHER, SELFPAY ==
[2020-04-28 13:11] LABS: Coronavirus 19 IgG Antibody Negative (Negative); Coronavirus 19 IgM Antibody Negative (Negative)
== END ==
PROVIDERS: PCP Internal Medicine Adolescent Medicine; Visit Provider Internal Medicine Adolescent Medicine
DX: Z03.818 Encounter for observation for suspected exposure to other biological agents ruled out (principal)
CPT/HCPCS: 36415; 86328

== ENCOUNTER 2020-06-21 15:12 | Emergency (ER) | payer OTHER, SELFPAY ==
[2020-06-21 15:30] VITALS: BP 131/87; PULSE 86; RESP 19; TEMP 36.9; O2SAT 98; BMI 24.0
[2020-06-21 15:39] VITALS: BP 131/87; PULSE 86; RESP 19; TEMP 36.9; O2SAT 98
--- NOTE | 2020-06-21 16:01 | HMH.EDUTC ---
[facility] [place] Disposition Clinical Impression: Contact dermatitis Qualifiers: Contact dermatitis type: allergic Contact dermatitis trigger: unspecified trigger Qualified Code(s): L23.9 - Allergic contact dermatitis, unspecified cause Disposition: Home, Self-Care Condition on Discharge: Good Instructions: DI for Contact Dermatitis Additional Instructions: apply cream steroids as ordered do not scratch return or be seen by pcp if worsen Prescriptions: predniSONE [Prednisone 5mg Tab Dose-Pack] 5 mg PO UD DOSE PK 6 Days #1 pack Prescription Printed Triamcinolone Acetonide 15 gm TP BID 5 Days #1 oint...g. Prescription Printed Referrals: Jg Edwards MD [Primary Care Provider] - Forms: Work/School Release Time of Disposition: 16:11 Medical Decision Making - Len Inquiry Pt receiving controlled substance: No Vital Signs: 06/21/20 15:30 06/21/20 15:39 Temperature 98.4 F 98.4 F Temperature Source Oral Oral Pulse Rate 86 Pulse Rate [Left] 86 Respiratory Rate 19 19 Blood Pressure 131/87 Blood Pressure [Right Arm] 131/87 Blood Pressure Mean [Right Arm] 101 Blood Pressure Source [Right Arm] Automatic Cuff Blood Pressure Position [Right Arm] Sitting 02 Sat by Pulse Oximetry 98 Oxygen Delivery Method Room Air Room Air [facility] [place] HPI - General Chief complaint: Urgent Treatment Center Stated complaint: Feet hives Time Seen by Provider: 06/21/20 16:02 Mode of Arrival: Ambulatory Source of Information: Patient Limitations: No Limitations Description of Symptoms (Recalled from Triage Doc. by RN): rash on bilateral feet HEENT Symptoms (Recalled from RN notes): No Resp Symptoms (Recalled from RN notes): No Skin Symptoms (Recalled from RN notes): Yes (RASH BILATERAL FEET) MS Symptoms (Recalled from RN notes): No Functional Status (Recalled from RN notes): STABLE - History of Present Illness Provider Complaint: 49 yr old female presents for a rash to the top of both feet since sat. pt states no new soap and she is not sure what caused rash. - Related Data Home Medications Medication Instructions Recorded Confirmed Cetirizine HCl [Zyrtec] 10 mg PO DAILY 02/26/18 01/29/20 Gabapentin [Gabapentin 300mg Cap] 300 mg PO TID 02/26/18 01/29/20 Montelukast Sodium [Singulair 10mg 10 mg PO PM 02/26/18 01/29/20 tablet] SUMAtriptan succinate [Imitrex] 100 mg PO NEEDED PRN 02/26/18 01/29/20 levothyroxine 125 mcg capsule 175 mcg PO DAILY cap 12/25/19 01/29/20 linaclotide 290 mcg capsule 290 mcg PO DAILY cap 01/29/20 01/29/20 Previous Rx's Medication Instructions Recorded Fluticasone Propionate [Flonase 2 spr NS DAILY #1 bottle 05/10/18 50mcg nasal spray 16gm] diclofenac sodium 1 % topical gel 4 g TOPICAL QID PRN #100 g 12/25/19 meloxicam 7.5 mg tablet 7.5 mg PO DAILY 30 Days #30 tab 01/29/20 methylprednisolone 4 mg tablets in See Rx Instructions PO PER PKG DIR 01/29/20 a dose pack #21 tab Triamcinolone Acetonide 15 gm TP BID 5 Days #1 oint...g. 06/21/20 predniSONE [Prednisone 5mg Tab 5 mg PO UD DOSE PK 6 Days #1 pack 06/21/20 Dose-Pack] Allergies Allergy/AdvReac Type Severity Reaction Status Date / Time No Known Allergies Allergy Verified 01/29/20 13:12 - Worker's Comp Is this a Worker's Comp case?: No Is this an [facility] Worker's Comp?: No Is this a [facility] Worker's Comp?: No H History - Hepatitis A Screen Drug use history?: No High risk sexual behaviors?: No History of sexually transmitted infection?: No Currently employed?: No Childcare worker?: No Do you have indoor plumbing?: Yes Do you have electricity?: Yes Attestation statement:: This patient has been screened for Hepatitis A risk factors. I have reviewed the patient's past medical history: Yes Medical History: Reports:: Chronic Obstructive Pulmonary Disease (COPD), Migraine Denies:: Cancer, Diabetes Mellitus Type 1, Diabetes Mellitus Type 2, Internal Pacemaker, MRSA Other Medical History: Reports: Hypothyroidism, Oth
== END 2020-06-21 16:12 | disposition home or self-care (01) ==
PROVIDERS: Emergency Provider Nurse Practitioner Family; PCP Internal Medicine Adolescent Medicine
DX: L23.9 Allergic contact dermatitis, unspecified cause (principal); J44.9 Chronic obstructive pulmonary disease, unspecified; G43.709 Chronic migraine without aura, not intractable, without status migrainosus; Z79.899 Other long term (current) drug therapy; E03.9 Hypothyroidism, unspecified; Z90.09 Acquired absence of other part of head and neck
CPT/HCPCS: 99201

== ENCOUNTER → 2020-10-01 16:59 | Outpatient (CLI) | payer OTHER, SELFPAY | PROVIDERS: PCP Internal Medicine Adolescent Medicine; Visit Provider Internal Medicine Adolescent Medicine | DX: Z03.818 Encounter for observation for suspected exposure to other biological agents ruled out (principal) | CPT/HCPCS: U0003 ==

== ENCOUNTER 2020-11-06 12:40 | Emergency (ER) | payer OTHER, SELFPAY ==
[2020-11-06 13:05] VITALS: BP 101/63; PULSE 89; RESP 19; TEMP 36.9; O2SAT 99; BMI 27.6
--- NOTE | 2020-11-06 13:22 | HMH.EDUTC ---
[facility] [place] Disposition Clinical Impression: Migraine Qualifiers: Migraine type: unspecified Status migrainosus presence: without status migrainosus Intractability: not intractable Qualified Code(s): G43.909 - Migraine, unspecified, not intractable, without status migrainosus Disposition: Home, Self-Care Condition on Discharge: Good Instructions: Migraine -- Adult Additional Instructions: Go Home lay down and sleep off remainder of headache *Follow up with Family Doctor if no improvement or any worsening of symptoms Straight to ER if any life threatening symptoms Return if needed Referrals: Jg Edwards MD [Primary Care Provider] - As needed Forms: Work/School Release Medical Decision Making - Len Inquiry Pt receiving controlled substance: No Len was queried for this patient: No Vital Signs: 11/06/20 13:05 Temperature 98.4 F Temperature Source Oral Pulse Rate [Right Brachial] 89 Respiratory Rate 19 Blood Pressure [Right Arm] 101/63 L Blood Pressure Mean [Right Arm] 75 Blood Pressure Source [Right Arm] Automatic Cuff Blood Pressure Position [Right Arm] Sitting 02 Sat by Pulse Oximetry 99 [facility] [place] HPI - General Stated complaint: migraine since last night Time Seen by Provider: 11/06/20 13:24 Mode of Arrival: Family Vehicle Description of Symptoms (Recalled from Triage Doc. by RN): Pt states she has had a migraine since last night HEENT Symptoms (Recalled from RN notes): No Resp Symptoms (Recalled from RN notes): No Skin Symptoms (Recalled from RN notes): No MS Symptoms (Recalled from RN notes): No Functional Status (Recalled from RN notes): wnl - History of Present Illness Provider Complaint: Patient state that she has had migraine headache that started last night States that she has a history of migraines and her imitrex didnt help so she come in to get the Migraine Cocktail States thats he has taken it several times in the past with no complications - Related Data Home Medications Medication Instructions Recorded Confirmed Cetirizine HCl [Zyrtec] 10 mg PO DAILY 02/26/18 01/29/20 Gabapentin [Gabapentin 300mg Cap] 300 mg PO TID 02/26/18 01/29/20 Montelukast Sodium [Singulair 10mg 10 mg PO PM 02/26/18 01/29/20 tablet] SUMAtriptan succinate [Imitrex] 100 mg PO NEEDED PRN 02/26/18 01/29/20 levothyroxine 125 mcg capsule 175 mcg PO DAILY cap 12/25/19 01/29/20 linaclotide 290 mcg capsule 290 mcg PO DAILY cap 01/29/20 01/29/20 Previous Rx's Medication Instructions Recorded Fluticasone Propionate [Flonase 2 spr NS DAILY #1 bottle 05/10/18 50mcg nasal spray 16gm] diclofenac sodium 1 % topical gel 4 g TOPICAL QID PRN #100 g 12/25/19 meloxicam 7.5 mg tablet 7.5 mg PO DAILY 30 Days #30 tab 01/29/20 methylprednisolone 4 mg tablets in See Rx Instructions PO PER PKG DIR 01/29/20 a dose pack #21 tab Triamcinolone Acetonide 15 gm TP BID 5 Days #1 oint...g. 06/21/20 predniSONE [Prednisone 5mg Tab 5 mg PO UD DOSE PK 6 Days #1 pack 06/21/20 Dose-Pack] Allergies Allergy/AdvReac Type Severity Reaction Status Date / Time No Known Allergies Allergy Verified 01/29/20 13:12 - Worker's Comp Is this a Worker's Comp case?: No [facility] History - Hepatitis A Screen Drug use history?: No High risk sexual behaviors?: No History of sexually transmitted infection?: No Currently employed?: No Childcare worker?: No Do you have indoor plumbing?: Yes Do you have electricity?: Yes Attestation statement:: This patient has been screened for Hepatitis A risk factors. I have reviewed the patient's past medical history: Yes Medical History: Reports:: Chronic Obstructive Pulmonary Disease (COPD), Migraine Denies:: Cancer, Diabetes Mellitus Type 1, Diabetes Mellitus Type 2, Internal Pacemaker, MRSA Other Medical History: Reports: Hypothyroidism, Other Laterality Cases: Bilateral: Tonsillectomy, Other Other Surgeries: Yes: Hysterectomy-Partial, Other. No: Pacemaker Amputation: No Fractures: No Comment:
[2020-11-06 13:49] VITALS: BP 101/63; PULSE 89; RESP 19; TEMP 36.9; O2SAT 99
== END 2020-11-06 13:50 | disposition home or self-care (01) ==
PROVIDERS: Emergency Provider Nurse Practitioner; PCP Internal Medicine Adolescent Medicine
DX: G43.909 Migraine, unspecified, not intractable, without status migrainosus (principal); J44.9 Chronic obstructive pulmonary disease, unspecified; E03.9 Hypothyroidism, unspecified; Z90.79 Acquired absence of other genital organ(s); Z79.899 Other long term (current) drug therapy
CPT/HCPCS: 96372; 99201

== ENCOUNTER 2020-12-14 14:30 | Emergency (ER) | payer OTHER, SELFPAY ==
[2020-12-14 14:40] VITALS: BP 102/59; PULSE 65; RESP 20; TEMP 36.8; O2SAT 98; BMI 23.1
--- NOTE | 2020-12-14 14:54 | HMH.EDUTC ---
[facility] [place] Dis[place] Clinical Impression: Vomiting and diarrhea Disposition: Home, Self-Care Condition on Discharge: Good Instructions: DI for Vomiting -- Adult, Nausea and Vomiting-Adult, Diarrhea, Dicyclomine Additional Instructions: ? Avoid fruit juices, as these do not replace minerals and can actually increase diarrhea. ? Children and adults can use sports drinks to replenish electrolytes. Younger children and infants should use products formulated for children, like oral rehydration solutions. ? Eat food in small amounts and let your stomach recover. ? Get lots of rest. You may feel tired or weak. ? No greasy or fried foods for the next 24-48 hours BRAT diet Bananas Rice Apples and [place] ? Make sure to drink plenty of liquids ? Return if needed ? Straight to ER if any life threatening symptoms ? Zofran as prescribed ? Follow up with family doctor in the next 48-72 hours if no improvement or any worsening of symptoms Make sure to keep follow up appointments with your Family Doctor and Specialist Prescriptions: Dicyclomine HCl [Bentyl 10mg capsule] 10 mg PO TID PRN #9 cap PRN Reason: Cramping Transmission Status: Pending to [facility] Referrals: Jg Edwards MD [Primary Care Provider] - As needed Forms: Work/School Release Time of Disposition: 15:00 Medical Decision Making - Len Inquiry Pt receiving controlled substance: No Len was queried for this patient: No Vital Signs: 12/14/20 14:40 Temperature 98.3 F Temperature Source Oral Pulse Rate [Right Brachial] 65 Respiratory Rate 20 Blood Pressure [Right Arm] 102/59 L Blood Pressure Mean [Right Arm] 73 Blood Pressure Source [Right Arm] Automatic Cuff Blood Pressure Position [Right Arm] Sitting 02 Sat by Pulse Oximetry 98 Oxygen Delivery Method Room Air [facility] [place] HPI - General Stated complaint: Stomach Pain Time Seen by Provider: 12/14/20 14:40 Mode of Arrival: Ambulatory Source of Information: Patient Limitations: No Limitations Description of Symptoms (Recalled from Triage Doc. by RN): PATIENT C/O LOWER ABD CRAMPING WITH VOMITING AND DIARRHEA X 2 MONTHS. HAS SEEN PCP FOR IT AND IS AWAITING A TEST FROM SPECIALIST. CALLED INTO WORK TODAY AND IS NEEDING A WORK HEENT Symptoms (Recalled from RN notes): No Resp Symptoms (Recalled from RN notes): No Skin Symptoms (Recalled from RN notes): No MS Symptoms (Recalled from RN notes): No Functional Status (Recalled from RN notes): WNL - History of Present Illness Provider Complaint: Patient states that she has been seeing her PCP for several months due to on and off cramping and diarrhea with N/V State that today she woke up around 4am with vomiting and diarrhea again and had some cramping and had to call into work State that they told her that she had to get a doctors note and she was unable to get in to her PCP and is currently waiting for her appointment with Specialist to undergo some tested States that symptoms are better now just needing to get a doctors note - Related Data Home Medications Medication Instructions Recorded Confirmed Cetirizine HCl [Zyrtec] 10 mg PO DAILY 02/26/18 01/29/20 Gabapentin [Gabapentin 300mg Cap] 300 mg PO TID 02/26/18 01/29/20 Montelukast Sodium [Singulair 10mg 10 mg PO PM 02/26/18 01/29/20 tablet] SUMAtriptan succinate [Imitrex] 100 mg PO NEEDED PRN 02/26/18 01/29/20 levothyroxine 125 mcg capsule 175 mcg PO DAILY cap 12/25/19 01/29/20 linaclotide 290 mcg capsule 290 mcg PO DAILY cap 01/29/20 01/29/20 Previous Rx's Medication Instructions Recorded Fluticasone Propionate [Flonase 2 spr NS DAILY #1 bottle 05/10/18 50mcg nasal spray 16gm] diclofenac sodium 1 % topical gel 4 g TOPICAL QID PRN #100 g 12/25/19 meloxicam 7.5 mg tablet 7.5 mg PO DAILY 30 Days #30 tab 01/29/20 methylprednisolone 4 mg tablets in See Rx Instructions PO PER PKG DIR 01/29/20 a dose pack #21 tab Triamcinolone Acetonide 15 gm TP BID 5 Days #1 oint...g. 06/21/20 predniSONE [P
[2020-12-14 15:01] VITALS: BP 102/59; PULSE 65; RESP 20; TEMP 36.8; O2SAT 98
== END 2020-12-14 15:05 | disposition home or self-care (01) ==
PROVIDERS: Emergency Provider Nurse Practitioner; PCP Internal Medicine Adolescent Medicine
DX: R11.10 Vomiting, unspecified (principal); R19.7 Diarrhea, unspecified; J44.9 Chronic obstructive pulmonary disease, unspecified; E03.9 Hypothyroidism, unspecified; Z79.899 Other long term (current) drug therapy
CPT/HCPCS: 99202; G0463

== ENCOUNTER → 2020-12-14 15:23 | Outpatient (CLI) | payer OTHER, SELFPAY ==
[2020-12-14 16:17] LABS: Basophils # 0.1 K/mm3 (0-0.2); Basophils % 0.5 % (0.1-2.0); Eosinophils # 0.3 K/mm3 (0.0-0.4); Eosinophils % 2.9 % (0.1-12.0); Hematocrit 37.7 % (37.0-47.0); Hemoglobin 12.5 g/dL (12.2-16.2); Lymphocytes # 3.4 K/mm3 (0.7-4.5); Mean Corpuscular HGB Conc 33.2 g/dL (31.8-35.4); Mean Corpuscular Hemoglobin 30.7 pg (27.0-31.2); Mean Corpuscular Volume 92.6 fl (81-99); Mean Platelet Volume 9.1 fl (7.4-10.4); Monocytes # 0.3 K/mm3 (0.1-1.0); Monocytes % 3.5 % (1.7-9.3); Neutrophils # 5.6 K/mm3 (1.8-7.8); Neutrophils % 58.1 % (37.0-80.0); Platelet Count 432 K/mm3 (142-424); Red Blood Count 4.08 M/mm3 (4.20-5.40); Red Cell Distribution Width 13.7 % (11.5-17.5); White Blood Count 9.7 K/mm3 (4.8-10.8)
[2020-12-14 17:15] LABS: Alanine Aminotransferase 16 U/L (12-78); Albumin Level 4.3 g/dl (3.5-5.0); Albumin/Globulin Ratio 1.4 (1.1-1.8); Alkaline Phosphatase 145 U/L (38-126); Anion Gap 12.3 mEq/L (5-15); Aspartate Amino Transferase 24 U/L (14-36); Bilirubin,Total 0.5 mg/dl (0.2-1.3); Blood Urea Nitrogen 12 mg/dl (7-17); Calcium 9.5 mg/dl (8.4-10.2); Carbon Dioxide 26 mmol/L (22.0-30.0); Chloride 104 mmol/L (98-107); Chol/HDL Ratio 3.7 (1-3.5); Cholesterol 216 mg/dl (140-200); Estimated Glomerular Filt Rate 105 ml/min (>60); GFR (African American) 128 ML/MIN (>60); Glucose 94 mg/dl (74-100); HDL Cholesterol 58 mg/dl (40-60); Potassium 4.3 mmoL/L (3.5-5.1); Sodium 138 mmol/L (136-145); Total Protein,Serum 7.3 g/dl (6.3-8.2); Triglycerides 127 mg/dl (30-150); VLDL Cholesterol 25 mg/dL (0-40)
[2020-12-14 17:26] LABS: Direct LDL Cholesterol 120.32 mg/dL (100-129)
[2020-12-14 17:32] LABS: Free T4 (Free Thyroxine) 1.01 ng/dl (0.78-2.19)
[2020-12-14 17:38] LABS: 25-OH Vitamin D, Total < 12.8 ng/mL (30-100)
[2020-12-14 17:46] LABS: Thyroid Stimulating Hormone 4.76 uIU/mL (0.465-4.68)
[2020-12-14 18:04] LABS: Vitamin B12 251 pg/mL (239-931)
[2020-12-16 15:05] LABS: Intact Parathyroid Hormone 40.8 pg/mL (7.5-53.5)
== END ==
PROVIDERS: Internal Medicine Adolescent Medicine; Visit Provider Nurse Practitioner Family
DX: Z00.00 Encounter for general adult medical examination without abnormal findings (principal); E03.9 Hypothyroidism, unspecified; E53.8 Deficiency of other specified B group vitamins; E55.9 Vitamin D deficiency, unspecified; D64.9 Anemia, unspecified
CPT/HCPCS: 36415; 80053; 80061; 82306; 82607; 83970; 84439; 84443; 85025

== ENCOUNTER → 2020-12-16 08:20 | Outpatient (CLI) | payer OTHER, SELFPAY ==
--- NOTE | 2020-12-16 08:40 | MM_ITS ---
PROCEDURE: MM DIG SCREENING MAMM BI W/CAD Digital Breast Tomosynthesis Included CLINICAL INDICATION: SCREENING There is a history of breast cancer in the patient's paternal grandmother. COMPARISON: MG DMSB DIGITAL MAMM-SCREEN BILATERAL from 11/18/2012 MG MM DIG SCREENING MAMM BI W/CAD from 08/21/2019 TECHNIQUE: Standard CC and MLO images and 3D Tomosynthesis was obtained. R2 CAD reviewed. FINDINGS: Moderate diffuse fibroglandular densities are seen in the central portions of both breasts and the findings are bilateral and symmetrical. There is no suspicious lesion and no suspicious microcalcifications. IMPRESSION: Fibrofatty parenchyma with no suspicious lesions seen BI-RAD Category: 1 Negative FOLLOW-UP: 1YR 1 Year Follow-up (A letter has been sent to the patient regarding results of the study.) Dictated by: Dr. Zak Eisenberg MD 12/20/2020 21:34 Dr. Zak Eisenberg MD in [place] 12/20/2020 21:34
== END ==
PROVIDERS: PCP Internal Medicine Adolescent Medicine; Visit Provider Nurse Practitioner Family
DX: Z12.31 Encounter for screening mammogram for malignant neoplasm of breast (principal)
CPT/HCPCS: 77063; 77067

== ENCOUNTER → 2021-01-24 09:18 | Outpatient (CLI) | payer OTHER, SELFPAY ==
--- NOTE | 2021-01-24 09:28 | XR_ITS ---
PROCEDURE: XR HIP LT 2-3V W/PELVIS CLINICAL INDICATION: LT HIP PAIN COMPARISON: CT ABDPELWO CT abdomen pelvis wo con from 05/21/2019 FINDINGS: There are mild osteoarthritic changes of the left hip with minimal acetabular protrusio. No fracture or dislocation. No lytic or blastic changes. Osteophytes are present along the femoral head neck junction. 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
== END ==
PROVIDERS: PCP Nurse Practitioner Family; Visit Provider Nurse Practitioner Family
DX: M25.552 Pain in left hip (principal)
CPT/HCPCS: 73502

== ENCOUNTER 2021-02-14 09:00 | Outpatient (RCR) | payer OTHER, SELFPAY | END 2021-02-14 09:05 | disposition home or self-care (01) | LOC: PT 09:00 | PROVIDERS: PCP Nurse Practitioner Family; Visit Provider Nurse Practitioner Family | DX: M54.5 Low back pain (principal); M46.1 Sacroiliitis, not elsewhere classified | CPT/HCPCS: 97010; 97110; 97163 ==

== ENCOUNTER → 2021-04-18 11:08 | Outpatient (POV) | payer OTHER, SELFPAY | PROVIDERS: Visit Provider Nurse Practitioner Family | DX: Z00.00 Encounter for general adult medical examination without abnormal findings (principal) ==

== ENCOUNTER → 2021-06-17 14:20 | Outpatient (CLI) | payer OTHER, SELFPAY ==
--- NOTE | 2021-06-17 18:10 | PC.NURSE ---
180 Called patient and notified her of positive swab. pt is asymptomatic and has had no contact with any ill people. Dr Mcknight contacted on pt behalf and stated ok to reswab. pt. attempted to contact pt back at [phone]. no answer
== END ==
PROVIDERS: Visit Provider Internal Medicine Gastroenterology
DX: Z01.812 Encounter for preprocedural laboratory examination (principal); Z20.822 Contact with and (suspected) exposure to COVID-19; Z13.810 Encounter for screening for upper gastrointestinal disorder; Z12.11 Encounter for screening for malignant neoplasm of colon
CPT/HCPCS: U0003

== ENCOUNTER 2021-06-20 09:38 | Day surgery (SDC) | payer OTHER, SELFPAY ==
[2021-06-16 07:26] VITALS: BMI 23.5
[2021-06-20] VITALS (7 sets, daily range): BP systolic 103–109; BP diastolic 57–81; PULSE 59–74; RESP 18; TEMP 36.2–36.3; O2SAT 96–98
--- NOTE | 2021-06-20 10:24 | HMH.ANESCL ---
[facility] Anesthesia Checklist - Patient Identification Patient Identification: Arm Band - Structural Data Admitted From: Home Planned Operative Procedure/s: EGD/Colonoscopy Consent for Planned Operative Procedure(s) Verified: Yes Verified Documents: Surgical Consent, History and Physical - NPO Status Verified Time NPO: 00:00 - Additional verifications Anesthesia Reactions: No - Airway Assessment C-Spine Mobility Assessed: Yes (mp2) TMJ Mobility Assessed: Yes Dentition: Good Dentition - Neurological Assessment Level of Consciousness: Awake, Alert - Anesthesia Plan Anesthesia Risk discussed: Yes Anesthesia Plan: Verified ASA Class: III Anesthesia Type: MAC [facility] History I have reviewed the patient's past medical history: Yes Medical History: Reports:: Cancer (cervical), Chronic Obstructive Pulmonary Disease (COPD), Migraine, MRSA (groin) Denies:: Diabetes Mellitus Type 1, Diabetes Mellitus Type 2, Internal Pacemaker, Seizures *Have you ever received a pneumonia vaccine?: Yes *Have you received a flu vaccine this season?: No Other Medical History: Reports: Hypothyroidism, Other Anesthesia experience/problems:: nac Laterality Cases: Bilateral: Tonsillectomy, Other Other Surgeries: Yes: Cholecystectomy, Hysterectomy-Partial, Other. No: Pacemaker Amputation: No Fractures: No - *Social History Last grade of school completed: High school graduate Smoking Status: Never smoker Alcohol Intake: never Alcohol Intake Frequency:: other Substance Use Type: denies use *Occupational Status:: employed Housing: house Household Members: significant other *Travel in the last 8 weeks: None Family Hx:: Cancer, Diabetes, Stroke, Thyroid Disorder
--- NOTE | 2021-06-20 10:40 | HMH.PROC ---
[facility] Procedure Note Procedure Note:: Upper Endoscopy Procedure Report: Esophagogastroduodenoscopy with cold biopsies Endoscopost: Jacoby Thompson II, MD Referring Physician: MIHIR Brar Date of Procedure: June 20, 2021 Equipment: Olympus GIF 190 standard upper endoscope Sedation: MAC sedation Indications: Mrs. Simms is a 50-year-old female with dyspepsia and weight loss. She reports epigastric and generalized abdominal pain and discomfort with nausea, vomiting and diarrhea intermittently. She went to the emergency department in November 2020. She had a diagnostic evaluation and labs. She had a CAT scan in 2019 that showed some panniculitis. She reports heartburn and reflux with epigastric discomfort. She has some early satiety. She states that her maternal aunt had gastric cancer in her 60s. She reports no dysphagia or melena. She has lost 30 to 40 pounds in the last 6 months. She had a negative barium swallow previously. She has been on omeprazole. Procedure: Prior to the procedure, a history and physical exam was performed, and patient's medications and allergies were reviewed. The risks, benefits and alternatives of the sedation and procedure were discussed with the patient. All questions were answered and informed consent was obtained. The patient was brought to the procedure room. Patient identification and proposed procedure were verified by the physician and the nurse. The patient was placed in a left lateral decubitus position and the scope was passed under direct vision. Throughout the procedure, the patient's blood pressure, pulse, and oxygen saturations were monitored continuously. The upper GI endoscopy was accomplished without difficulty. The patient tolerated the procedure well. Findings: The scope was passed directly into the upper esophagus and advanced to the third portion of the duodenum. The post bulbar duodenum and duodenal bulb were normal with normal mucosa and conniventes. Cold biopsies were taken from the post bulbar duodenum to rule out celiac disease. The scope was withdrawn through a normal duodenal bulb and pylorus into the stomach. There was bile reflux with mild linear reactive gastropathy of the antrum. There was mild chronic gastritis of the body and fundus of the stomach. Upon retroflexion there was no hiatal hernia. Cold biopsies were taken from the antrum and lesser curvature to rule out reactive gastropathy and H. pylori. The scope was then withdrawn into the esophagus. There was no evidence of reflux esophagitis or Aguilar's. There was a serrated Z-line and biopsies were taken to rule out nonerosive GERD. There were tertiary contractions and evidence of mild esophageal dysmotility. The remainder of the esophageal mucosa was normal. Impression: 1. Nonerosive GERD with mild esophageal dysmotility 2. Bile reflux with mild linear reactive gastropathy and mild chronic gastritis Plan: I will follow-up the biopsies. We will discuss additional treatment options of her dyspepsia. I do feel that this is related to her obstipation/incomplete bowel evacuation with colonic fermentation/gas formation. I will proceed with diagnostic colonoscopy.
--- NOTE | 2021-06-20 11:24 | P.PCN_ITS ---
[facility] Procedure Note Procedure Note:: Colonoscopy Procedure Report: Colonoscopy with cold snare polypectomy Endoscopist: Jacoby Thompson II, MD Referring physician: MIHIR Brar Date of Procedure: June 20, 2021 Equipment: Olympus 190 variable stiffness pediatric colonoscope Sedation: MAC sedation Indication: Mrs. Simms is a 50-year-old female with abnormal weight loss of 30 to 40 pounds. The patient reports some chronic constipation. She will sometimes alternate with diarrhea. She was placed on Linzess 290 mcg. She also has fa iled MiraLAX, stimulant laxatives, enemas and magnesium citrate. She does report mucus with her bowel movements but no blood. She reports no family history of colon cancer. This is her first colonoscopy. Procedure: Prior to the procedure, a history and physical exam was performed, and patient's medications and allergies were reviewed. The risks, benefits and alternatives of the sedation and procedure were discussed with the patient. All questions were answered and informed consent was obtained. The patient was brought to the procedure room. Patient identification and proposed procedure were verified by the physician and the nurse. The patient was placed in a left lateral decubitus position and the scope was passed under direct vision. Throughout the procedure, the patient's blood pressure, pulse, and oxygen saturations were monitored continuously. The colonoscopy was accomplished without difficulty. The patient tolerated the procedure well. Findings: On digital rectal examination there was normal rectal tone. There were no external hemorrhoids. The colonoscope was introduced through the anal canal to the rectum and advanced to the cecum. The ileocecal valve and appendiceal orifice were identified. The scope was advanced a short distance into the ileum which appeared grossly normal. The scope was then withdrawn into the colon. The cecum, ascending and transverse colon and mucosa were grossly normal. There was a single 6 mm polyp in the descending colon removed via cold snare polypectomy. There were scattered diverticuli throughout the descending and sigmoid colon (LEFT colon). The rectum itself was normal. Upon retroflexion within the rectum there were grade 1-2 internal hemorrhoids. The preparation was excellent throughout with [place] Preparation Score of 9. The cecal time was 12 minutes. Impression: 1. Descending colon polyp 2. Left-sided diverticulosis 3. Grade 1-2 internal hemorrhoids Plan: I will follow up the polyp pathology and recommend repeat colonoscopy again in 7 years based upon the polyp histology. I would encourage a fiber bowel regimen on a long-term daily maintenance basis. I do feel that she has some outlet constipation (pelvic floor dyssynergia).
== END 2021-06-20 12:21 | disposition home or self-care (01) ==
LOC: OUTP 09:39
PROVIDERS: PCP Nurse Practitioner Family; Visit Provider Internal Medicine Gastroenterology
PROC: 0DJ08ZZ Inspection of Upper Intestinal Tract, Via Natural or Artificial Opening Endoscopic (ICD-10-PCS; CPT 43235; principal; 2021-06-20 10:30)
DX: Z68.23 Body mass index [BMI] 23.0-23.9, adult; K63.5 Polyp of colon; K57.30 Diverticulosis of large intestine without perforation or abscess without bleeding; K64.0 First degree hemorrhoids; K21.9 Gastro-esophageal reflux disease without esophagitis; K31.9 Disease of stomach and duodenum, unspecified; K29.50 Unspecified chronic gastritis without bleeding; R63.4 Abnormal weight loss; Z85.41 Personal history of malignant neoplasm of cervix uteri; J44.9 Chronic obstructive pulmonary disease, unspecified; G43.909 Migraine, unspecified, not intractable, without status migrainosus; Z86.14 Personal history of Methicillin resistant Staphylococcus aureus infection
CPT/HCPCS: 45385; 43239

== ENCOUNTER 2021-07-31 10:06 | Emergency (ER) | payer OTHER, SELFPAY ==
[2021-07-31 10:40] VITALS: BP 112/63; PULSE 66; RESP 20; TEMP 37.3; O2SAT 100; BMI 25.2
--- NOTE | 2021-07-31 11:02 | HMH.EDUTC ---
[facility] [place] Disposition Clinical Impression: COVID-19 virus test result unknown Otitis media Qualifiers: Otitis media type: suppurative Chronicity: acute Laterality: left Recurrence: recurrent Spontaneous tympanic membrane rupture: without spontaneous rupture Qualified Code(s): H66.005 - Acute suppurative otitis media without spontaneous rupture of ear drum, recurrent, left ear Disposition: Home, Self-Care Condition on Discharge: Good Instructions: DI for COVID-19 (Suspected or Confirmed ), How to Care for Someone with COVID-19, Ear Infections (Alternative Therapy), Middle Ear Infection Additional Instructions: Start antibiotic as soon as possible and be sure to take as ordered for full length of time even though he should start feeling better in 24-48 hours. Tylenol or Motrin as needed for pain or fever Encourage fluids, water, Gatorade, Powerade, Pedialyte if /toddler/child Warm compresses often helps when placed over ear Return immediately for new or worsening symptoms no noticeable improvement in 48-72 hours and in 10-14 days to ensure the ears are return to baseline. Follow-up with primary care covid swab was sent to lab, call later today for results. self isolate until test results are known to be negative Prescriptions: Azithromycin [Zithromax 250mg tab] 250 mg PO DIRECTED #6 tab Transmission Status: Pending to [facility] Referrals: Jg Edwards MD [Primary Care Provider] - Medical Decision Making - Len Inquiry Pt receiving controlled substance: No Vital Signs: 07/31/21 10:40 Temperature 99.2 F Temperature Source Oral Pulse Rate [Right Brachial] 66 Respiratory Rate 20 Blood Pressure [Right Arm] 112/63 Blood Pressure Mean [Right Arm] 79 Blood Pressure Source [Right Arm] Automatic Cuff Blood Pressure Position [Right Arm] Sitting 02 Sat by Pulse Oximetry 100 Oxygen Delivery Method Room Air Orders (Tests/Meds): ORDERS Category Date Time Status Covid-19 Nasal PCR ([facility]) Routine Lab 07/31/21 10:35 Received [facility] [place] HPI - General Chief complaint: Urgent Treatment Center Stated complaint: cough,headache Time Seen by Provider: 07/31/21 11:02 Mode of Arrival: Ambulatory Source of Information: Patient Limitations: No Limitations Description of Symptoms (Recalled from Triage Doc. by RN): PATIENT C/O HEADACHE THIS MORNING. SHE WAS TREATED FOR SINUS INFECTION LAST WEEK. REQUESTING COVID TEST HEENT Symptoms (Recalled from RN notes): Yes Resp Symptoms (Recalled from RN notes): No Skin Symptoms (Recalled from RN notes): No MS Symptoms (Recalled from RN notes): No Functional Status (Recalled from RN notes): WNL - History of Present Illness Provider Complaint: 50 yr old female presents for fever, saúl ear pain,cough,tiredness, nasal congestion and fatigue. pt states she was treated at dr herrera for ear infection and finished antibiotics and two days later the fever and symptoms returned. - Related Data Home Medications Medication Instructions Recorded Confirmed Cetirizine HCl [Zyrtec] 10 mg PO DAILY 02/26/18 06/27/21 Gabapentin [Gabapentin 300mg Cap] 300 mg PO TID 02/26/18 06/27/21 Montelukast Sodium [Singulair 10mg 10 mg PO PM 02/26/18 06/27/21 tablet] SUMAtriptan succinate [Imitrex] 100 mg PO NEEDED PRN 02/26/18 06/27/21 levothyroxine 125 mcg capsule 175 mcg PO DAILY cap 12/25/19 06/27/21 linaclotide 290 mcg capsule 290 mcg PO DAILY cap 01/29/20 06/27/21 Fluticasone Propionate [Flonase 2 spr NS DAILY 06/16/21 06/27/21 50mcg nasal spray 16gm] Previous Rx's Medication Instructions Recorded meloxicam 7.5 mg tablet 7.5 mg PO DAILY 30 Days #30 tab 01/29/20 ibuprofen 800 mg tablet 800 mg PO Q8H PRN 30 Days #30 tab 06/27/21 Azithromycin [Zithromax 250mg 250 mg PO DIRECTED #6 tab 07/31/21 tab] Allergies Allergy/AdvReac Type Severity Reaction Status Date / Time No Known Allergies Allergy Verified 06/27/21 09:19 - Worker's Comp Is this a Work
[2021-07-31 11:15] VITALS: BP 112/63; PULSE 66; RESP 20; TEMP 37.3; O2SAT 100
== END 2021-07-31 11:18 | disposition home or self-care (01) ==
PROVIDERS: Emergency Provider Nurse Practitioner Family; PCP Internal Medicine Adolescent Medicine
DX: Z20.822 Contact with and (suspected) exposure to COVID-19 (principal)
CPT/HCPCS: 99202; G0463; U0003

== ENCOUNTER 2021-08-03 14:58 | Outpatient (CLI) | payer OTHER, SELFPAY ==
--- NOTE | 2021-08-03 15:02 | XR_ITS ---
PROCEDURE: XR CHEST 2V CLINICAL HISTORY: COUGH COMPARISON: CT [facility] CT CHEST W/ CONTRAST from 03/10/2014 CR CXR CHEST(2 VIEWS-NOT PORTABLE) from 11/29/2016 CR CXR CHEST(2 VIEWS-NOT PORTABLE) from 05/03/2017 CR CXR CHEST(2 VIEWS-NOT PORTABLE) from 11/13/2017 FINDINGS: The cardiomediastinal silhouette and pulmonary vascularity are within normal limits. The lungs are clear without infiltrates, suspicious nodules, or pleural effusions. No acute bony abnormalities. IMPRESSION: No acute findings. Dictated by: Aquilino Lynn MD 08/03/2021 15:31 Aquilino Lynn MD in [place] 08/03/2021 15:31
[2021-08-03 15:41] VITALS: BP 114/50; PULSE 62; RESP 18; O2SAT 98
== END 2021-08-03 15:41 | disposition home or self-care (01) ==
LOC: RAD 14:59
PROVIDERS: PCP Internal Medicine Adolescent Medicine; Visit Provider Nurse Practitioner Family
DX: R05 Cough (principal)
CPT/HCPCS: 71046; 96372

== ENCOUNTER 2021-11-24 09:49 | Emergency (ER) | payer OTHER, SELFPAY ==
[2021-11-24 10:23] LABS: UTC Strep Screen (Rapid) Negative (Negative)
[2021-11-24 10:27] VITALS: BP 133/61; PULSE 62; RESP 18; TEMP 37.1; O2SAT 95; BMI 23.5
--- NOTE | 2021-11-24 10:36 | HMH.EDUTC ---
[facility] [place] Clinical Impression: Otitis media Qualifiers: Otitis media type: unspecified Laterality: right Qualified Code(s): H66.91 - Otitis media, unspecified, right ear Disposition: Home, Self-Care Condition on Discharge: Good Instructions: Middle Ear Infections (Alternative Therapy), Middle Ear Infection, Amoxicillin Additional Instructions: *Monitor Temp, Over the counter Motrin or Tylenol as directed/as needed Tylenol every 4 hours and Motrin every 6 hours (as long as your family doctor has told you that you can take it) for fever or pain. and straight to ER if unable to lower temp less than 101.0 after medication given *Warm salt water gargles may help to soothe the throat *Throat Lozenges *Warm fluids like tea with honey may help to soothe the throat *Sleep elevated *Humidifier/Vaporizer Your throat swab was sent for culture. Those results are typically sent to your primary care. Be sure to follow up in 2-3 days with your family doctor/primary care physician if no improvement so they can review those result and treat if necessary. If you don?t have a primary care doctor, I recommend you get one but in the mean time, you will have to return to a walk in clinic Follow up IMMEDIATELY for new or worsening symptoms or no Noticeable improvement over the next 48-72 hours. 911 for difficulty breathing or swallowing Prescriptions: Benzonatate [Benzonatate 100mg cap] 100 mg PO Q8HP PRN #15 cap PRN Reason: Cough Transmission Status: Received by [facility] Amoxicillin [Amoxicillin 500mg Cap] 500 mg PO TID #30 cap Transmission Status: Received by [facility] methylPREDNISolone [Medrol 4mg tab] 4 mg PO DIRECTED #21 tab Transmission Status: Received by [facility] Referrals: Jg Edwards MD [Primary Care Provider] - As needed Forms: Work/School Release Time of Disposition: 10:55 Medical Decision Making - Len Inquiry Pt receiving controlled substance: No Len was queried for this patient: No Vital Signs: 11/24/21 10:27 Temperature 98.7 F Temperature Source Oral Pulse Rate [Left] 62 Respiratory Rate 18 Blood Pressure [Right Arm] 133/61 Blood Pressure Mean [Right Arm] 85 02 Sat by Pulse Oximetry 95 - Lab Data Lab results reviewed: Yes: I reviewed the patient's lab results. Lab Results 11/24/21 10:20: Strep Scn Rapid Clinic Negative Orders (Tests/Meds): ORDERS Category Date Time Status Strep Screen Confirmation Routine Micro 11/24/21 10:20 Received [facility] [place] - General Stated complaint: sore throat,cough,headache Time Seen by Provider: 11/24/21 10:36 Mode of Arrival: Ambulatory Source of Information: Patient Limitations: No Limitations Description of Symptoms (Recalled from Triage Doc. by RN): pt c/o a JOSE, cough, R ear ache, and sore throat since yesterday. HEENT Symptoms (Recalled from RN notes): Yes (sore throat, JOSE, and R ear ache) Resp Symptoms (Recalled from RN notes): No Skin Symptoms (Recalled from RN notes): No MS Symptoms (Recalled from RN notes): No Functional Status (Recalled from RN notes): wnl - History of Present Illness Provider Complaint: Patient states that she has been having pain in her right ear, sore throat and headache States that she felt like she may have ear infection or strep throat States that today she was still feeling bad so she came in to get checked - Related Data Home Medications Medication Instructions Recorded Confirmed Cetirizine HCl [Zyrtec] 10 mg PO DAILY 02/26/18 06/27/21 Gabapentin [Gabapentin 300mg Cap] 300 mg PO TID 02/26/18 06/27/21 Montelukast Sodium [Singulair 10mg 10 mg PO PM 02/26/18 06/27/21 tablet] SUMAtriptan succinate [Imitrex] 100 mg PO NEEDED PRN 02/26/18 06/27/21 levothyroxine 125 mcg capsule 175 mcg PO DAILY cap 12/25/19 06/27/21 linaclotide 290 mcg capsule 290 mcg PO DAILY cap 01/29/20 06/27/21 Fluticasone Propionate [Flonase 2 spr NS DAILY 06/16/21 06/27/21 50mcg nasa
[2021-11-24 11:32] VITALS: BP 133/61; PULSE 62; RESP 18; TEMP 37.1
== END 2021-11-24 11:32 | disposition home or self-care (01) ==
PROVIDERS: Emergency Provider Nurse Practitioner; PCP Internal Medicine Adolescent Medicine
DX: H66.91 Otitis media, unspecified, right ear (principal); J44.9 Chronic obstructive pulmonary disease, unspecified; E03.9 Hypothyroidism, unspecified
CPT/HCPCS: 87880; 99203; C9803; G0463; U0003; U0005

== ENCOUNTER → 2021-11-30 08:38 | Outpatient (CLI) | payer OTHER, SELFPAY | PROVIDERS: PCP Internal Medicine Adolescent Medicine; Visit Provider Nurse Practitioner | DX: Z20.822 Contact with and (suspected) exposure to COVID-19 (principal) | CPT/HCPCS: C9803; U0003; U0005 ==

== ENCOUNTER → 2021-12-15 08:17 | Outpatient (CLI) | payer OTHER, SELFPAY | PROVIDERS: PCP Internal Medicine Adolescent Medicine; Visit Provider Nurse Practitioner | DX: Z20.822 Contact with and (suspected) exposure to COVID-19 (principal) | CPT/HCPCS: C9803; U0003; U0005 ==

== ENCOUNTER → 2022-01-18 16:03 | Outpatient (CLI) | payer OTHER, SELFPAY ==
--- NOTE | 2022-01-18 16:07 | XR_ITS ---
PROCEDURE INFORMATION: Exam: XR Left Hip Exam date and time: 01/18/2022 4:07 PM Age: 51 years old Clinical indication: Hip pain; Left hip; Additional info: Lt hip pain, lumbar neuralgia TECHNIQUE: Imaging protocol: XR Left hip. Views: 2 or 3 views hip with pelvis when performed. COMPARISON: CR XR HIP LT 2-3V W/PELVIS 01/24/2021 9:28 AM FINDINGS: Bones/joints: Unchanged left hip protrusio acetabuli, which could be related to osteoarthritis versus rheumatoid arthritis or idiopathic causes depending upon clinical presentation. Soft tissues: Unremarkable. IMPRESSION: Unchanged left hip protrusio acetabuli, which could be related to osteoarthritis versus rheumatoid arthritis or idiopathic causes depending upon clinical presentation.
--- NOTE | 2022-01-18 16:07 | XR_ITS ---
PROCEDURE INFORMATION: Exam: XR Lumbosacral Spine Exam date and time: 01/18/2022 4:07 PM Age: 51 years old Clinical indication: Low back pain; Additional info: Lt hip pain, lumbar neuralgia TECHNIQUE: Imaging protocol: XR of the lumbosacral spine. Views: 4 or 5 views. COMPARISON: CR XR HIP LT 2-3V W/PELVIS 01/24/2021 9:28 AM FINDINGS: Bones/joints: Mild loss of intervertebral disc space with degenerative changes at L4 through S1. Soft tissues: Unremarkable. IMPRESSION: Mild loss of intervertebral disc space with degenerative changes at L4 through S1.
--- NOTE | 2022-01-18 16:07 | XR_ITS ---
PROCEDURE INFORMATION: Exam: XR Left Femur Exam date and time: 01/18/2022 4:07 PM Age: 51 years old Clinical indication: Pain; Hip; Left; Additional info: Lt hip pain, lumbar neuralgia TECHNIQUE: Imaging protocol: XR Left femur. Views: 2 views. COMPARISON: CR XR HIP LT 2-3V W/PELVIS 01/24/2021 9:28 AM FINDINGS: Bones/joints: Protrusio acetabuli, which could be related to osteoarthritis versus rheumatoid arthritis or idiopathic causes depending upon clinical presentation. Soft tissues: Unremarkable. IMPRESSION: Unchanged protrusio acetabuli, which could be related to osteoarthritis versus rheumatoid arthritis or idiopathic causes depending upon clinical presentation.
--- NOTE | 2022-01-18 16:07 | XR_ITS ---
PROCEDURE INFORMATION: Exam: XR Bilateral Sacroiliac Joints Exam date and time: 01/18/2022 4:07 PM Age: 51 years old Clinical indication: Pain; Lumbago; Additional info: Lt hip pain, lumbar neuralgia TECHNIQUE: Imaging protocol: XR Bilateral XR of the sacroiliac joints. Views: 3 or more views. COMPARISON: CR XR HIP LT 2-3V W/PELVIS 01/24/2021 9:28 AM FINDINGS: Bones/joints: Unchanged left hip protrusio acetabuli, which could be related to osteoarthritis versus rheumatoid arthritis or idiopathic causes depending upon clinical presentation. No convincing erosions or sclerosis of the sacroiliac joints. Soft tissues: Normal. IMPRESSION: 1. Unchanged left hip protrusio acetabuli, which could be related to osteoarthritis versus rheumatoid arthritis or idiopathic causes depending upon clinical presentation. 2. No convincing erosions or sclerosis of the sacroiliac joints.
== END ==
PROVIDERS: PCP Internal Medicine Adolescent Medicine; Visit Provider Internal Medicine Adolescent Medicine
DX: M53.3 Sacrococcygeal disorders, not elsewhere classified (principal); M54.16 Radiculopathy, lumbar region; M25.552 Pain in left hip
CPT/HCPCS: 72110; 72202; 73502; 73552

== ENCOUNTER 2022-04-19 16:00 | Outpatient (RCR) | payer OTHER, SELFPAY | END 2022-04-19 16:05 | disposition home or self-care (01) | LOC: PT 16:00 | PROVIDERS: PCP Internal Medicine Adolescent Medicine; Visit Provider Orthopaedic Surgery | DX: M70.62 Trochanteric bursitis, left hip (principal); M25.552 Pain in left hip | CPT/HCPCS: 97010; 97014; 97110; 97163; 97164; G0283 ==

== ENCOUNTER 2022-07-15 09:13 | Emergency (ER) | payer OTHER, SELFPAY ==
[2022-07-15 09:45] VITALS: BP 139/44; PULSE 90; RESP 20; TEMP 38; O2SAT 96; BMI 25.5
[2022-07-15 09:59] VITALS: BP 139/44; PULSE 90; RESP 20; TEMP 38; O2SAT 96
--- NOTE | 2022-07-15 10:08 | HMH.EDUTC ---
[facility] [place] Disposition Clinical Impression: Upper respiratory infection, viral, Close exposure to COVID-19 virus Disposition: Home, Self-Care Condition on Discharge: Good Instructions: DI for Viral Upper Respiratory Infection -- Adult, DI for COVID-19 (Suspected or Confirmed ) Additional Instructions: covid swab was sent to lab, call tomorrow for results. self isolate until test results are known to be negative No sign of a bacterial infection. Likely viral. Viruses can take 7-14 days to run their course. Nasal saline and bulb syringe or nose Karin to remove nasal drainage to help with nasal congestion. Hard to eat, drink, sleep with nasal congestion so important to keep this cleaned out. Monitor temp. Tylenol or Motrin as needed for pain or fever Encourage fluids, water, Gatorade, Powerade, Pedialyte if /toddler/child Warm salt water gargles Warm fluids Sore throat lozenges Sleep elevated Humidifier/vaporizer Follow-up immediately for new or worsening symptoms or no noticeable improvement over the next 48-72 hours. Referrals: Jg Edwards MD [Primary Care Provider] - Forms: Work/School Release Time of Disposition: 10:16 Medical Decision Making - Len Inquiry Pt receiving controlled substance: No Vital Signs: 07/15/22 09:45 07/15/22 09:59 Temperature 100.4 F H 100.4 F H Temperature Source Temporal Artery Scan Pulse Rate 90 Pulse Rate [Right Brachial] 90 Respiratory Rate 20 20 Blood Pressure 139/44 L Blood Pressure [Right Arm] 139/44 L Blood Pressure Mean [Right Arm] 75 Blood Pressure Source [Right Arm] Automatic Cuff Blood Pressure Position [Right Arm] Sitting 02 Sat by Pulse Oximetry 96 Oxygen Delivery Method Room Air Orders (Tests/Meds): ORDERS Category Date Time Status Covid-19 Nasal PCR ([facility]) Routine Lab 07/15/22 09:45 Received [facility] [place] HPI - General Chief complaint: Urgent Treatment Center Stated complaint: Fever, cough, sore throat, covid exposure Time Seen by Provider: 07/15/22 10:08 Mode of Arrival: Ambulatory Source of Information: Patient Limitations: No Limitations Description of Symptoms (Recalled from Triage Doc. by RN): PATIENT C/O FEVER, COUGH, AND SORE THROAT THAT STARTED THIS MORNING. 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 family member + for covid - Related Data Home Medications Medication Instructions Recorded Confirmed Cetirizine HCl [Zyrtec] 10 mg PO DAILY 02/26/18 06/27/21 Gabapentin [Gabapentin 300mg Cap] 300 mg PO TID 02/26/18 06/27/21 Montelukast Sodium [Singulair 10mg 10 mg PO PM 02/26/18 06/27/21 tablet] SUMAtriptan succinate [Imitrex] 100 mg PO NEEDED PRN 02/26/18 06/27/21 levothyroxine 125 mcg capsule 175 mcg PO DAILY cap 12/25/19 06/27/21 linaclotide 290 mcg capsule 290 mcg PO DAILY cap 01/29/20 06/27/21 Fluticasone Propionate [Flonase 2 spr NS DAILY 06/16/21 06/27/21 50mcg nasal spray 16gm] Previous Rx's Medication Instructions Recorded meloxicam 7.5 mg tablet 7.5 mg PO DAILY 30 Days #30 tab 01/29/20 ibuprofen 800 mg tablet 800 mg PO Q8H PRN 30 Days #30 tab 06/27/21 Azithromycin [Zithromax 250mg 250 mg PO DIRECTED #6 tab 07/31/21 tab] Amoxicillin [Amoxicillin 500mg 500 mg PO TID #30 cap 11/24/21 Cap] Benzonatate [Benzonatate 100mg 100 mg PO Q8HP PRN #15 cap 11/24/21 cap] methylPREDNISolone [Medrol 4mg 4 mg PO DIRECTED #21 tab 11/24/21 tab] Allergies Allergy/AdvReac Type Severity Reaction Status Date / Time No Known Allergies Allergy Verified 06/27/21 09:19 - Worker's Comp Is this a Worker's Comp case?
== END 2022-07-15 10:23 | disposition home or self-care (01) ==
PROVIDERS: Emergency Provider Nurse Practitioner Family; PCP Internal Medicine Adolescent Medicine
DX: U07.1 COVID-19 (principal); R50.9 Fever, unspecified; J02.8 Acute pharyngitis due to other specified organisms
CPT/HCPCS: 99212; C9803; G0463; U0003; U0005

== ENCOUNTER 2022-09-10 08:20 | Emergency (ER) | payer OTHER, SELFPAY ==
[2022-09-10 08:35] VITALS: BP 120/76; PULSE 63; RESP 20; TEMP 36.9; O2SAT 98; BMI 27.1
--- NOTE | 2022-09-10 08:45 | EXP.UTC ---
Discharge Plan Disposition Patient Disposition: Home, Self-Care Condition: Good Prescriptions Prescriptions: New methylprednisolone [Medrol (Yariel)] 4 mg tablets,dose pack See Rx Instructions .Route .COMPLEX 6 Days Qty: 21 0RF Rx Instructions: taper pack; amoxicillin-pot clavulanate 875-125 mg Tablet 1 tab PO Q12H Qty: 20 0RF No Action levothyroxine 125 mcg capsule 175 mcg PO DAILY ibuprofen 800 mg tablet 800 mg PO Q8H PRN (Reason: pain) 30 Days Qty: 30 2RF linaclotide 290 mcg capsule 290 mcg PO DAILY meloxicam 7.5 mg tablet 7.5 mg PO DAILY 30 Days Qty: 30 2RF cetirizine 10 MG tablet 10 mg PO DAILY sumatriptan succinate 100 MG tablet 100 mg PO NEEDED PRN (Reason: MIGRAINES) gabapentin 300 MG capsule 300 mg PO TID montelukast 10 MG tablet 10 mg PO PM amoxicillin 500 MG capsule 500 mg PO TID Qty: 30 0RF methylprednisolone 4 MG tablet 4 mg PO DIRECTED Qty: 21 0RF Rx Instructions: Take as directed on package instructions benzonatate 100 MG capsule 100 mg PO Q8HP PRN (Reason: Cough) Qty: 15 0RF fluticasone propionate 120 SPR/BOT bottle 2 spr NS DAILY Rx Instructions: each nostril azithromycin 250 MG tablet 250 mg PO DIRECTED Qty: 6 0RF Rx Instructions: Take two (2) tablets on day #1, then one (1) tablet day #2 thru #5 Referrals Follow up/Referrals: Jg Edwards MD [Primary Care Provider] - See instructions Activity Restrictions/Add. Instructions Additional Instructions/Restrictions: *Monitor Temp, Over the counter Motrin or Tylenol as directed/as needed Tylenol every 4 hours and Motrin every 6 hours (as long as your family doctor has told you that you can take it) for fever or pain. and straight to ER if unable to lower temp less than 101.0 after medication given *Warm salt water gargles may help to soothe the throat *Throat Lozenges? *Warm fluids like tea with honey may help to soothe the throat? *Sleep elevated *Humidifier/Vaporizer Follow up IMMEDIATELY for new or worsening symptoms or no Noticeable improvement over the next 48-72 hours. 911 for difficulty breathing or swallowing Clinical Impressions Clinical Impression: Otitis media Instructions Patient Instructions: DI for Sinusitis, Sinusitis, Middle Ear Infection Discharge ED Provider: Kyung Gentile [facility] [place] General Stated complaint: cough, JOSE, Rt ear pain, drainage Time Seen by Provider: 09/10/22 08:45 History of Present Illness Provider Complaint: Patient states that she thinks she has an ear infection and sinus infection States that she has been having pain in her ears worse in the right, sinus pain and pressure and cough feels like it is trying to move into her chest area States that it has continued to get worse over the last couple of days so today she came in Related Data Home Medications Medication Instructions Recorded Confirmed cetirizine 10 mg tablet 10 mg PO DAILY ALLERGIES 02/26/18 06/27/21 gabapentin 300 mg capsule 300 mg PO TID Pain 02/26/18 06/27/21 montelukast 10 mg tablet 10 mg PO PM ALLERGIES/ASTHMA 02/26/18 06/27/21 sumatriptan succinate 100 mg tablet 100 mg PO NEEDED PRN MIGRAINES 02/26/18 06/27/21 levothyroxine 125 mcg capsule 175 mcg PO DAILY thyropid 12/25/19 06/27/21 linaclotide 290 mcg capsule 290 mcg PO DAILY bowels 01/29/20 06/27/21 fluticasone propionate 50 2 spr NS DAILY allergies 06/16/21 06/27/21 mcg/actuation nasal spray,suspension Previous Rx's Medication Instructions Recorded meloxicam 7.5 mg tablet 7.5 mg PO DAILY pain 30 days #30 01/29/20 tabs ibuprofen 800 mg tablet 800 mg PO Q8H PRN pain 30 days #30 06/27/21 tabs azithromycin 250 mg tablet 250 mg PO DIRECTED #6 tabs 07/31/21 amoxicillin 500 mg capsule 500 mg PO TID #30 caps 11/24/21 benzonatate 100 mg capsule 100 mg PO Q8HP PRN Cough #15 caps 11/24/21 methylprednisolone 4 mg
[2022-09-10 09:05] VITALS: BP 120/76; PULSE 63; RESP 20; TEMP 36.9; O2SAT 98
== END 2022-09-10 09:07 | disposition home or self-care (01) ==
PROVIDERS: Emergency Provider Nurse Practitioner; PCP Internal Medicine Adolescent Medicine
DX: H66.91 Otitis media, unspecified, right ear (principal); J02.9 Acute pharyngitis, unspecified; R05.9 Cough, unspecified; E07.9 Disorder of thyroid, unspecified; G43.909 Migraine, unspecified, not intractable, without status migrainosus; J44.9 Chronic obstructive pulmonary disease, unspecified; F32.A Depression, unspecified; F41.9 Anxiety disorder, unspecified; Z79.1 Long term (current) use of non-steroidal anti-inflammatories (NSAID); Z79.51 Long term (current) use of inhaled steroids; Z79.52 Long term (current) use of systemic steroids; Z79.899 Other long term (current) drug therapy
CPT/HCPCS: 99213; G0463

== ENCOUNTER → 2022-10-03 12:27 | Outpatient (CLI) | payer OTHER, SELFPAY ==
--- NOTE | 2022-10-03 12:43 | XR_ITS ---
FINAL REPORT CLINICAL HISTORY: LT FOOT PAIN,LT ANKLE PAIN PT FELL IN HOLE 2 DAYS AGO FINDINGS: LEFT FOOT Three views of the left foot demonstrate no acute fracture or dislocation. The visualized joint spaces are normally aligned. The soft tissues are unremarkable. IMPRESSION: No acute bony abnormality. Reviewed, Interpreted and Dictated by Long Ying MD Transcribed by Samantha Jaramillo Authenticated and [facility]
--- NOTE | 2022-10-03 12:43 | XR_ITS ---
FINAL REPORT CLINICAL HISTORY: LT FOOT PAIN,LT ANKLE PAIN PT FELL IN HOLE 2 DAYS AGO FINDINGS: LEFT ANKLE Three views of the left ankle were obtained. There is no acute fracture or dislocation. There is mild Herb's deformity. There is mild soft tissue edema about the ankle. IMPRESSION: Mild soft tissue edema with no acute bony abnormality. Reviewed, Interpreted and Dictated by Long Ying MD Transcribed by Samantha Jaramillo Authenticated and [facility]
== END ==
PROVIDERS: PCP Internal Medicine Adolescent Medicine; Visit Provider Nurse Practitioner Family
DX: M79.672 Pain in left foot (principal); M25.572 Pain in left ankle and joints of left foot; G89.11 Acute pain due to trauma
CPT/HCPCS: 73610; 73630

== ENCOUNTER 2022-10-04 10:25 | Outpatient (RCR) | payer OTHER, SELFPAY | END 2022-10-04 11:30 | disposition home or self-care (01) | LOC: PT 10:25 | PROVIDERS: Visit Provider Nurse Practitioner Family | DX: S90.02XA Contusion of left ankle, initial encounter (principal); S93.412S Sprain of calcaneofibular ligament of left ankle, sequela | CPT/HCPCS: 97760 ==

== ENCOUNTER → 2022-12-02 11:39 | Outpatient (CLI) | payer OTHER, SELFPAY ==
--- NOTE | 2022-12-02 11:47 | XR_ITS ---
PROCEDURE INFORMATION: Exam: XR Left Ankle Exam date and time: 12/02/2022 11:54 AM Age: 52 years old Clinical indication: Pain; Ankle; Left; Additional info: Left ankle pain TECHNIQUE: Imaging protocol: Radiologic exam of the Left ankle. Views: 3 or more views. COMPARISON: CR XR ANKLE LT MIN 3V 10/03/2022 12:49 PM FINDINGS: Bones/joints: Normal. Soft tissues: Normal. Small Achilles tendinous enthesophyte. IMPRESSION: No acute findings. Achilles tendinous enthesophyte.
== END ==
PROVIDERS: PCP Internal Medicine Adolescent Medicine; Visit Provider Nurse Practitioner Family
DX: M25.572 Pain in left ankle and joints of left foot (principal)
CPT/HCPCS: 73610

== ENCOUNTER → 2022-12-29 11:47 | Outpatient (CLI) | payer OTHER, SELFPAY ==
--- NOTE | 2022-12-29 11:47 | MR_ITS ---
FINAL REPORT CLINICAL HISTORY: ankle pain lateral sided foot and ankle pain after fall in September 2022 swelling and discolored on the lateral side of foot FINDINGS: Multiplanar MR imaging of the left ankle was performed without contrast. There is motion on some of the images which decreases sensitivity of the exam. There is bone marrow edema in the midfoot and rear foot. No fracture is identified. No osteochondral lesion is identified. There is irregularity of the anterior talofibular ligament, favor partial tear. The flexor and extensor tendons are intact. The posterior plantar aponeurosis is intact. Small joint effusions are seen. The musculature is intact. There is no evidence of soft tissue mass or cyst. IMPRESSION: Bone marrow edema in the midfoot and where foot with no acute fracture identified. Irregularity of the anterior talofibular ligament, favor partial tear. Small joint effusions. Reviewed, Interpreted and Dictated by Gene Baker III, MD Transcribed by Samantha Jaramillo Authenticated and [facility]
--- NOTE | 2022-12-29 11:47 | MR_ITS ---
FINAL REPORT CLINICAL HISTORY: foot pain lateral sided foot and ankle pain after fall in September 2022 swelling and discolored on the lateral side of foot FINDINGS: Multiplanar MR imaging of the left foot was performed without contrast. There is motion on many of the images which decreases sensitivity of the exam. There is bone bruising/bone marrow edema of the midfoot and rearfoot. No well-defined fracture line is identified. The flexor and extensor tendons are intact. No ligamentous injury is identified. The musculature is intact. The plantar aponeurosis is intact. No soft tissue mass or cyst is identified. IMPRESSION: Bone bruising/bone marrow edema of the midfoot and rearfoot with no well-defined fracture line identified. Reviewed, Interpreted and Dictated by Gene Baker III, MD Transcribed by Samantha Jaramillo Authenticated and . [facility]
== END ==
PROVIDERS: PCP Internal Medicine Adolescent Medicine; Visit Provider Podiatrist
DX: M76.62 Achilles tendinitis, left leg (principal)
CPT/HCPCS: 73718; 73721

== ENCOUNTER 2023-05-04 07:59 | Emergency (ER) | payer OTHER, SELFPAY ==
[2023-05-04 08:10] VITALS: BP 116/67; PULSE 64; RESP 20; TEMP 36.5; O2SAT 98; BMI 27.7
--- NOTE | 2023-05-04 08:18 | EXP.UTC ---
Discharge Plan Disposition Patient Disposition: Home, Self-Care Condition: Good Prescriptions Prescriptions: New methylprednisolone [Medrol (Yariel)] 4 mg tablets,dose pack See Rx Instructions .Route .COMPLEX 6 Days Qty: 21 0RF Rx Instructions: taper pack; amoxicillin-pot clavulanate 875-125 mg Tablet 1 tab PO Q12H Qty: 20 0RF No Action levothyroxine 125 mcg capsule 175 mcg PO DAILY linaclotide 290 mcg capsule 290 mcg PO DAILY meloxicam 7.5 mg tablet 7.5 mg PO BID 30 Days Qty: 60 2RF cetirizine 10 MG tablet 10 mg PO DAILY sumatriptan succinate 100 MG tablet 100 mg PO NEEDED PRN (Reason: MIGRAINES) gabapentin 300 MG capsule 300 mg PO TID montelukast 10 MG tablet 10 mg PO PM benzonatate 100 MG capsule 100 mg PO Q8HP PRN (Reason: Cough) Qty: 15 0RF fluticasone propionate 120 SPR/BOT bottle 2 spr intranasal DAILY Rx Instructions: each nostril Referrals Follow up/Referrals: Jg Edwards MD [Primary Care Provider] - See instructions Activity Restrictions/Add. Instructions Additional Instructions/Restrictions: *Monitor Temp, Over the counter Motrin or Tylenol as directed/as needed Tylenol every 4 hours and Motrin every 6 hours (as long as your family doctor has told you that you can take it) for fever or pain. and straight to ER if unable to lower temp less than 101.0 after medication given *Warm salt water gargles may help to soothe the throat *Throat Lozenges? *Warm fluids like tea with honey may help to soothe the throat? *Sleep elevated *Humidifier/Vaporizer Take medication as prescribed Follow up IMMEDIATELY for new or worsening symptoms or no Noticeable improvement over the next 48-72 hours. 911 for difficulty breathing or swallowing Clinical Impressions Clinical Impression: Otitis media, Sinusitis Instructions Patient Instructions: Ear Infections (Alternative Therapy), Sinusitis, Middle Ear Infection, DI for Sinusitis Discharge ED Provider: Kyung Gentile [facility] General Stated complaint: congestion, sore throat Mode of Arrival: Ambulatory Source of Information: Patient Limitations: No Limitations Time Seen by Provider: 05/04/23 08:18 Description of Symptoms (Recalled from Triage Doc. by RN): PATIENT C/O DRY COUGH, SORE THORAT, FEVER AND CONGESTION X 2 DAYS HEENT Symptoms (Recalled from RN notes): Yes Resp Symptoms (Recalled from RN notes): Yes Skin Symptoms (Recalled from RN notes): No MS Symptoms (Recalled from RN notes): No Functional Status (Recalled from RN notes): WNL History of Present Illness Provider Complaint: Patient state that she has been having sinus congestion for about a week States that for the last couple of days she has been having sinus pain and pressure, pain in left ear, sore throat and dry cough States that today she woke up hoarse from the drainage so she came in to get checked Related Data Home Medications Medication Instructions Recorded Confirmed cetirizine 10 mg tablet 10 mg PO DAILY ALLERGIES 02/26/18 01/16/23 gabapentin 300 mg capsule 300 mg PO TID Pain 02/26/18 01/16/23 montelukast 10 mg tablet 10 mg PO PM ALLERGIES/ASTHMA 02/26/18 01/16/23 sumatriptan succinate 100 mg tablet 100 mg PO NEEDED PRN MIGRAINES 02/26/18 01/16/23 levothyroxine 125 mcg capsule 175 mcg PO DAILY thyropid 12/25/19 01/16/23 linaclotide 290 mcg capsule 290 mcg PO DAILY bowels 01/29/20 01/16/23 fluticasone propionate 50 2 spr intranasal DAILY allergies 06/16/21 01/16/23 mcg/actuation nasal spray,suspension Previous Rx's Medication Instructions Recorded benzonatate 100 mg capsule 100 mg PO Q8HP PRN Cough #15 caps 11/24/21 meloxicam 7.5 mg tablet 7.5 mg PO BID pain 30 days #60 tabs 01/16/23 amoxicillin 875 mg-potassium 1 tab PO Q12H #20 tabs 05/04/23 clavulanate 125 mg tablet methylprednisolone 4 mg tablets in See Rx Instructions .Route 05/04/23 a dose pack ([employer] [facility]
[2023-05-04 08:34] VITALS: BP 116/67; PULSE 64; RESP 20; TEMP 36.5; O2SAT 98
== END 2023-05-04 08:37 | disposition home or self-care (01) ==
PROVIDERS: Emergency Provider Nurse Practitioner; PCP Internal Medicine Adolescent Medicine
DX: H66.92 Otitis media, unspecified, left ear (principal); J01.90 Acute sinusitis, unspecified; J44.9 Chronic obstructive pulmonary disease, unspecified; E03.9 Hypothyroidism, unspecified; F41.9 Anxiety disorder, unspecified; F32.A Depression, unspecified
CPT/HCPCS: 99212; 99214; G0463

== ENCOUNTER → 2023-05-05 07:36 | Outpatient (CLI) | payer OTHER, SELFPAY ==
[2023-05-05 09:26] LABS: Basophils % 0.2 % (0.1-2.0); Eosinophils # 0.1 K/mm3 (0.0-0.4); Eosinophils % 1.1 % (0.1-12.0); Hematocrit 40.1 % (37.0-47.0); Hemoglobin 12.9 g/dL (12.2-16.2); Lymphocytes # 2.1 K/mm3 (0.7-4.5); Lymphocytes % 17.6 % (10-50); Mean Corpuscular HGB Conc 32.3 g/dL (31.8-35.4); Mean Corpuscular Hemoglobin 28.8 pg (27.0-31.2); Mean Corpuscular Volume 89.2 fl (81-99); Mean Platelet Volume 8.6 fl (7.4-10.4); Monocytes # 0.3 K/mm3 (0.1-1.0); Monocytes % 2.6 % (1.7-9.3); Neutrophils # 9.3 K/mm3 (1.8-7.8); Neutrophils % 78.5 % (37.0-80.0); Platelet Count 403 K/mm3 (142-424); Red Cell Distribution Width 13.3 % (11.5-17.5); White Blood Count 11.8 K/mm3 (4.8-10.8)
[2023-05-05 10:39] LABS: Alanine Aminotransferase 25 U/L (12-78); Albumin Level 4.5 g/dl (3.5-5.0); Albumin/Globulin Ratio 1.5 (1.1-1.8); Alkaline Phosphatase 138 U/L (38-126); Anion Gap 17.5 mEq/L (5-15); Aspartate Amino Transferase 32 U/L (14-36); Bilirubin,Total 0.4 mg/dl (0.2-1.3); Blood Urea Nitrogen 18 mg/dl (7-17); Calcium 9.1 mg/dl (8.4-10.2); Carbon Dioxide 22 mmol/L (22.0-30.0); Chloride 104 mmol/L (98-107); Chol/HDL Ratio 3.2 (1-3.5); Cholesterol 226 mg/dl (140-200); Estimated Glomerular Filt Rate 105 ml/min (>60); GFR (African American) 127 ML/MIN (>60); Glucose 117 mg/dl (74-100); HDL Cholesterol 71 mg/dl (40-60); Potassium 4.5 mmoL/L (3.5-5.1); Sodium 139 mmol/L (136-145); Total Protein,Serum 7.5 g/dl (6.3-8.2); Triglycerides 93 mg/dl (30-150); VLDL Cholesterol 19 mg/dL (0-40)
[2023-05-05 10:56] LABS: Triiodothryronine (T3) Uptake 28 % (23.5-40.5)
[2023-05-05 10:57] LABS: 25-OH Vitamin D, Total 15.8 ng/mL (30-100)
[2023-05-05 11:10] LABS: Thyroid Stimulating Hormone 2.58 uIU/mL (0.465-4.68)
[2023-05-05 11:28] LABS: Vitamin B12 236 pg/mL (239-931)
[2023-05-05 12:47] LABS: Erythrocyte Sedimentation Rate 39 mm/hr (0-30)
[2023-05-06 09:11] LABS: Free Thyroxine Index 2.3 ug/dL (5.93-13.13); T4 (Thyroxine) 8.1 ug/dl (5.53-11.0)
== END ==
PROVIDERS: PCP Internal Medicine Adolescent Medicine; Visit Provider Nurse Practitioner Family
DX: Z00.00 Encounter for general adult medical examination without abnormal findings (principal); E03.9 Hypothyroidism, unspecified; E53.8 Deficiency of other specified B group vitamins; E55.9 Vitamin D deficiency, unspecified; M25.552 Pain in left hip
CPT/HCPCS: 36415; 80053; 80061; 82306; 82607; 84436; 84443; 84479; 85025; 85651; 86431

== ENCOUNTER → 2023-05-07 13:16 | Outpatient (CLI) | payer OTHER, SELFPAY ==
--- NOTE | 2023-05-07 13:41 | MM_ITS ---
PROCEDURE INFORMATION: Exam: MG Bilateral Screening 3D Mammography Exam date and time: 05/07/2023 1:30 PM Age: 52 years old Clinical indication: Screening examination TECHNIQUE: Imaging protocol: Bilateral Screening tomosynthesis and 2D mammography including computer-aided detection (CAD) when performed. COMPARISON: 1. MG MM DIG SCREENING MAMM BI W/CAD 12/16/2020 8:38 AM 2. MG MM DIG SCREENING MAMM BI W/CAD 08/21/2019 10:06 AM FINDINGS: MAMMOGRAPHY: Breast composition: The breasts are heterogeneously dense, which may obscure small masses. Mass: None. Architectural distortion: None. Calcifications: No suspicious calcifications. Asymmetric density: None. Skin thickening: None. Axillary adenopathy: None. IMPRESSION: No mammographic evidence of malignancy. Annual screening is recommended unless otherwise clinically indicated. ASSESSMENT: BI-RADS Category 1: Negative
--- NOTE | 2023-05-07 13:42 | US_ITS ---
FINAL REPORT CLINICAL HISTORY: follow up FINDINGS: Thyroid ultrasound: The right lobe of the thyroid gland is enlarged and measures 5.2 x 2.1 x 1.9 cm in size. The right thyroid is diffusely inhomogeneous in echotexture. There are 2 nodules in the right thyroid gland. The larger nodule is in the upper portion of the right lobe of the thyroid measuring 1.5 x 1.1 x 0.6 cm in size, solid, hyperechoic, a TI-RADS 3 category nodule. The smaller nodule in the mid right thyroid gland measures 1.1 x 1.1 cm in size, also solid and hyperechoic, a TI-RADS 3 category nodule. The left lobe of the thyroid gland is also enlarged, measuring 5.3 x 1.5 x 1.7 cm in size and diffusely inhomogeneous. There is a nodule in the left lobe of the thyroid measuring 1 x 1 x 0.6 cm in size, solid, hyperechoic, and a TI-RADS 3 category nodule. The isthmus of the thyroid gland measures 0.4 cm in thickness. IMPRESSION: Diffusely enlarged thyroid gland with very heterogeneous echotexture, worrisome for thyroiditis. Multiple nodules present as described above. Given their appearance no follow-up is necessary at this time. Reviewed, Interpreted and Dictated by Gene Baker III, MD Transcribed by Mague Lira Authenticated and [facility]
== END ==
PROVIDERS: PCP Internal Medicine Adolescent Medicine; Visit Provider Nurse Practitioner Family
DX: Z12.31 Encounter for screening mammogram for malignant neoplasm of breast (principal); E04.1 Nontoxic single thyroid nodule
CPT/HCPCS: 76536; 77063; 77067

== ENCOUNTER 2023-06-24 10:42 | Emergency (ER) | payer OTHER, SELFPAY ==
[2023-06-24 10:44] VITALS: BP 121/72; PULSE 74; RESP 18; TEMP 36.7; O2SAT 97; BMI 28.8
--- NOTE | 2023-06-24 11:17 | EXP.UTC ---
Discharge Plan Disposition Patient Disposition: Home, Self-Care Condition: Good Prescriptions Prescriptions: New mupirocin 2 % ointment 1 applic topical TID 7 Days Qty: 15 0RF No Action levothyroxine 125 mcg capsule 175 mcg PO DAILY linaclotide 290 mcg capsule 290 mcg PO DAILY meloxicam 7.5 mg tablet 7.5 mg PO BID 30 Days Qty: 60 2RF cetirizine 10 MG tablet 10 mg PO DAILY sumatriptan succinate 100 MG tablet 100 mg PO NEEDED PRN (Reason: MIGRAINES) gabapentin 300 MG capsule 300 mg PO TID montelukast 10 MG tablet 10 mg PO PM benzonatate 100 MG capsule 100 mg PO Q8HP PRN (Reason: Cough) Qty: 15 0RF methylprednisolone [Medrol (Yariel)] 4 mg tablets,dose pack See Rx Instructions .Route .COMPLEX 6 Days Qty: 21 0RF Rx Instructions: taper pack; amoxicillin-pot clavulanate 875-125 mg Tablet 1 tab PO Q12H Qty: 20 0RF fluticasone propionate 120 SPR/BOT bottle 2 spr intranasal DAILY Rx Instructions: each nostril Referrals Follow up/Referrals: Jg Edwards MD [Primary Care Provider] - See instructions Activity Restrictions/Add. Instructions Additional Instructions/Restrictions: Keep the affected area clean and dry. Follow up with your regular doctor. Apply the topical antibiotics as directed. Protect the area and try to prevent friction in the affected area. GO TO THE ER FOR ANY WORSENING SYMPTOMS Clinical Impressions Clinical Impression: Friction blister of the foot Stand Alone Forms Stand Alone Forms: Work/School Release Instructions Patient Instructions: Blisters, Mupirocin, DI for Blisters Discharge ED Provider: Thomas Avila [facility] General Stated complaint: blister on left heel Time Seen by Provider: 06/24/23 11:09 History of Present Illness Provider Complaint: She states that she walked a lot yesterday and today she has a blister on her left heel from where her shoe rubbed her. She denies any other injury. She denies any history of diabetes. Related Data Home Medications Medication Instructions Recorded Confirmed cetirizine 10 mg tablet 10 mg PO DAILY ALLERGIES 02/26/18 01/16/23 gabapentin 300 mg capsule 300 mg PO TID Pain 02/26/18 01/16/23 montelukast 10 mg tablet 10 mg PO PM ALLERGIES/ASTHMA 02/26/18 01/16/23 sumatriptan succinate 100 mg tablet 100 mg PO NEEDED PRN MIGRAINES 02/26/18 01/16/23 levothyroxine 125 mcg capsule 175 mcg PO DAILY thyropid 12/25/19 01/16/23 linaclotide 290 mcg capsule 290 mcg PO DAILY bowels 01/29/20 01/16/23 fluticasone propionate 50 2 spr intranasal DAILY allergies 06/16/21 01/16/23 mcg/actuation nasal spray,suspension Previous Rx's Medication Instructions Recorded benzonatate 100 mg capsule 100 mg PO Q8HP PRN Cough #15 caps 11/24/21 meloxicam 7.5 mg tablet 7.5 mg PO BID pain 30 days #60 tabs 01/16/23 amoxicillin 875 mg-potassium 1 tab PO Q12H #20 tabs 05/04/23 clavulanate 125 mg tablet methylprednisolone 4 mg tablets in See Rx Instructions .Route 05/04/23 a dose pack (Medrol (Yariel)) .COMPLEX 6 days #21 tabs mupirocin 2 % topical ointment 1 applic topical TID 7 days #15 06/24/23 grams Allergies Allergy/AdvReac Type Severity Reaction Status Date / Time No Known Allergies Allergy Verified 01/16/23 09:00 [facility] Disclaimer: The information contained in this section may have been updated after the patient was seen, as this information can be updated by other users. Medical History Anxiety COPD (chronic obstructive pulmonary disease) Depression Migraine Thyroid disease Surgical History History of hysterectomy History of tonsillectomy Social History Smoking Status: Never smoker second hand exposure: No alcohol intake: never substance use type: denies use current occ
[2023-06-24 11:52] VITALS: BP 121/72; PULSE 74; RESP 18; TEMP 36.7; O2SAT 97
== END 2023-06-24 11:52 | disposition home or self-care (01) ==
PROVIDERS: Emergency Provider Nurse Practitioner Family; PCP Internal Medicine Adolescent Medicine
DX: S90.822A Blister (nonthermal), left foot, initial encounter (principal); J44.9 Chronic obstructive pulmonary disease, unspecified; E03.9 Hypothyroidism, unspecified; F41.9 Anxiety disorder, unspecified; F32.A Depression, unspecified; X58.XXXA Exposure to other specified factors, initial encounter
CPT/HCPCS: 99212; 99213; G0463

== ENCOUNTER 2023-06-25 06:46 | Emergency (ER) | payer OTHER, SELFPAY ==
[2023-06-25 06:55] VITALS: BP 117/69; PULSE 74; RESP 18; TEMP 36.6; O2SAT 97; BMI 27.4
--- NOTE | 2023-06-25 07:27 | HMH.EDGENADL ---
Discharge Plan Disposition Patient Disposition: Home, Self-Care Prescriptions Prescriptions: New chlorhexidin-isopropyl alcohol 2-4 % liquid 1 ea topical DAILY Qty: 3840 0RF No Action levothyroxine 125 mcg capsule 175 mcg PO DAILY linaclotide 290 mcg capsule 290 mcg PO DAILY meloxicam 7.5 mg tablet 7.5 mg PO BID 30 Days Qty: 60 2RF cetirizine 10 MG tablet 10 mg PO DAILY sumatriptan succinate 100 MG tablet 100 mg PO NEEDED PRN (Reason: MIGRAINES) gabapentin 300 MG capsule 300 mg PO TID montelukast 10 MG tablet 10 mg PO PM benzonatate 100 MG capsule 100 mg PO Q8HP PRN (Reason: Cough) Qty: 15 0RF methylprednisolone [Medrol (Yariel)] 4 mg tablets,dose pack See Rx Instructions .Route .COMPLEX 6 Days Qty: 21 0RF Rx Instructions: taper pack; amoxicillin-pot clavulanate 875-125 mg Tablet 1 tab PO Q12H Qty: 20 0RF mupirocin 2 % ointment 1 applic topical TID 7 Days Qty: 15 0RF fluticasone propionate 120 SPR/BOT bottle 2 spr intranasal DAILY Rx Instructions: each nostril Referrals Follow up/Referrals: Jg Edwards MD [Primary Care Provider] - See instructions Activity Restrictions/Add. Instructions Additional Instructions/Restrictions: Use decolonization protocol which was provided to you today. Mupirocin was antibiotic given, continue using this and placing bandages over wound. Keep wound clean and otherwise dry at night. Chlorhexidine provided, more sent to [facility] pharmacy. If you have any worsening of your condition or any other concerning signs or symptoms, return to the emergency department or your primary care doctor for further evaluation. Clinical Impressions Clinical Impression: Blister Instructions Patient Instructions: DI for Skin Abscess Discharge ED Provider: Jose G Cavanaugh Adult [facility] General Chief complaint: Skin/Abscess/Foreign Body Stated complaint: Blister on Left heel with drainage Time Seen by Provider: 06/25/23 07:00 Mode of Arrival: Ambulatory Source of Information: Patient Limitations: No Limitations Description of Symptoms (Recalled from ER Triage Doc. by RN): pt states she was wearing shoes without socks on 06/23 and ended up with a blister on the back of her L heel. pt was seen in the [facility] yesterday for the blister and was given a ointment. pt thinks it is infected and she needs an antibiotic. pt does have a hx of MRSA. pt has one round of N/V this am. History of Present Illness HPI narrative: This is a 52-year-old female with a history of numerous MRSA infections presenting with left heel injury. Patient states that a couple days prior to arrival, she was wearing tennis shoes without socks and got a blister on her left heel. Since that time, she has had pain in the heel with associated blister. Blister sloughed off 1 day prior to arrival on 06/24. She went to the urgent care 1 day prior to arrival, was given mupirocin, but states she still having pain, so came to the ER for further evaluation. Has had clear drainage when she applies pressure, but no evidence of sanguinous or purulent discharge. Denies fevers, chills, systemic signs or symptoms, red streaking around the area, purulent drainage, or any other concerns. Has never had MRSA decolonization. Related Data Home Medications Medication Instructions Recorded Confirmed cetirizine 10 mg tablet 10 mg PO DAILY ALLERGIES 02/26/18 01/16/23 gabapentin 300 mg capsule 300 mg PO TID Pain 02/26/18 01/16/23 montelukast 10 mg tablet 10 mg PO PM ALLERGIES/ASTHMA 02/26/18 01/16/23 sumatriptan succinate 100 mg tablet 100 mg PO NEEDED PRN MIGRAINES 02/26/18 01/16/23 levothyroxine 125 mcg capsule 175 mcg PO DAILY thyropid 12/25/19 01/16/23 linaclotide 290 mcg capsule 290 mcg PO DAILY bowels 01/29/20 01/16/23 fluticasone propionate 50 2 spr intranasal DAILY allergies 06/16/21 01/16/23 mcg/actuation nasal spray,suspension Previous Rx's
[2023-06-25 07:51] VITALS: BP 135/78; PULSE 79; RESP 18; TEMP 36.6; O2SAT 97
== END 2023-06-25 07:52 | disposition home or self-care (01) ==
PROVIDERS: Emergency Provider Emergency Medicine; PCP Internal Medicine Adolescent Medicine
DX: S90.522A Blister (nonthermal), left ankle, initial encounter (principal); W49.09XA Other specified item causing external constriction, initial encounter; J44.9 Chronic obstructive pulmonary disease, unspecified; F41.9 Anxiety disorder, unspecified; F32.A Depression, unspecified; G43.909 Migraine, unspecified, not intractable, without status migrainosus; E07.9 Disorder of thyroid, unspecified
CPT/HCPCS: 99283

== ENCOUNTER 2023-08-04 13:56 | Emergency (ER) | payer OTHER, SELFPAY ==
--- NOTE | 2023-08-04 14:02 | EXP.UTC ---
Discharge Plan Disposition Patient Disposition: Home, Self-Care Condition: Good Prescriptions Prescriptions: New azithromycin [Zithromax] 250 mg tablet 250 mg PO UD DOSE PK Qty: 6 0RF Rx Instructions: Take two (2) tablets today, then one (1) tablet days #2 thru #5 benzonatate [benzonatate] 100 mg capsule 100 mg PO TIDP PRN (Reason: Cough) Qty: 30 0RF methylprednisolone 4 mg Tablets,Dose Pack 4 mg PO DIRECTED Qty: 21 0RF No Action levothyroxine 125 mcg capsule 175 mcg PO DAILY linaclotide 290 mcg capsule 290 mcg PO DAILY meloxicam 7.5 mg tablet 7.5 mg PO BID 30 Days Qty: 60 2RF cetirizine 10 MG tablet 10 mg PO DAILY sumatriptan succinate 100 MG tablet 100 mg PO NEEDED PRN (Reason: MIGRAINES) gabapentin 300 MG capsule 300 mg PO TID montelukast 10 MG tablet 10 mg PO PM mupirocin 2 % ointment 1 applic topical TID 7 Days Qty: 15 0RF fluticasone propionate 120 SPR/BOT bottle 2 spr intranasal DAILY Rx Instructions: each nostril chlorhexidin-isopropyl alcohol 2-4 % liquid 1 ea topical DAILY Qty: 3840 0RF Referrals Follow up/Referrals: Jg Edwards MD [Primary Care Provider] - See instructions Activity Restrictions/Add. Instructions Additional Instructions/Restrictions: Drink plenty of fluids. Take tylenol or ibuprofen for pain or fever. Take the medications as directed. Follow up with your regular doctor. GO TO THE ER FOR ANY WORSENING SYMPTOMS Clinical Impressions Clinical Impression: Sinusitis Instructions Patient Instructions: Sinusitis, DI for Sinusitis Discharge ED Provider: Thomas Avila [facility] General Stated complaint: congestion, cough Time Seen by Provider: 08/04/23 14:02 History of Present Illness Provider Complaint: She states that for the past 5 days she has had sinus congestion. Related Data Home Medications Medication Instructions Recorded Confirmed cetirizine 10 mg tablet 10 mg PO DAILY ALLERGIES 02/26/18 01/16/23 gabapentin 300 mg capsule 300 mg PO TID Pain 02/26/18 01/16/23 montelukast 10 mg tablet 10 mg PO PM ALLERGIES/ASTHMA 02/26/18 01/16/23 sumatriptan succinate 100 mg tablet 100 mg PO NEEDED PRN MIGRAINES 02/26/18 01/16/23 levothyroxine 125 mcg capsule 175 mcg PO DAILY thyropid 12/25/19 01/16/23 linaclotide 290 mcg capsule 290 mcg PO DAILY bowels 01/29/20 01/16/23 fluticasone propionate 50 2 spr intranasal DAILY allergies 06/16/21 01/16/23 mcg/actuation nasal spray,suspension Previous Rx's Medication Instructions Recorded meloxicam 7.5 mg tablet 7.5 mg PO BID pain 30 days #60 tabs 01/16/23 mupirocin 2 % topical ointment 1 applic topical TID 7 days #15 06/24/23 grams chlorhexidine 2 %-isopropyl 1 ea topical DAILY #3,840 mL 06/25/23 alcohol 4 % topical liquid azithromycin 250 mg tablet 250 mg PO UD DOSE PK #6 tabs 08/04/23 (Zithromax) benzonatate 100 mg capsule 100 mg PO TIDP PRN Cough #30 caps 08/04/23 methylprednisolone 4 mg tablets in 4 mg PO DIRECTED #21 tabs 08/04/23 a dose pack Allergies Allergy/AdvReac Type Severity Reaction Status Date / Time No Known Allergies Allergy Verified 08/04/23 14:22 [facility] Disclaimer: The information contained in this section may have been updated after the patient was seen, as this information can be updated by other users. Medical History Anxiety COPD (chronic obstructive pulmonary disease) Depression Migraine Thyroid disease Surgical History History of hysterectomy History of tonsillectomy Social History Smoking Status: Never smoker second hand exposure: No alcohol intake: never substance use type: denies use current occupational status: employed Travel in the last 8 weeks: None household members: significant o
[2023-08-04 14:10] VITALS: BP 126/69; PULSE 68; RESP 18; TEMP 37; O2SAT 94; BMI 28.6
[2023-08-04 15:19] VITALS: BP 126/69; PULSE 68; RESP 18; TEMP 37; O2SAT 94
== END 2023-08-04 15:19 | disposition home or self-care (01) ==
PROVIDERS: Emergency Provider Nurse Practitioner Family; PCP Internal Medicine Adolescent Medicine
DX: J01.90 Acute sinusitis, unspecified (principal); J44.9 Chronic obstructive pulmonary disease, unspecified; E03.9 Hypothyroidism, unspecified; F41.9 Anxiety disorder, unspecified; F32.A Depression, unspecified; J02.9 Acute pharyngitis, unspecified
CPT/HCPCS: 99212; 99214; G0463

== ENCOUNTER 2023-11-05 08:13 | Emergency (ER) | payer OTHER, SELFPAY ==
[2023-11-05 08:30] VITALS: BP 118/65; PULSE 77; RESP 18; TEMP 37; O2SAT 94; BMI 28.3
--- NOTE | 2023-11-05 08:35 | EXP.UTC ---
Discharge Plan Disposition Patient Disposition: Home, Self-Care Condition: Good Prescriptions Prescriptions: New amoxicillin [amoxicillin] 875 mg tablet 875 mg PO Q12H Qty: 20 0RF benzonatate [benzonatate] 100 mg capsule 100 mg PO TIDP PRN (Reason: Cough) Qty: 30 0RF prednisone 10 mg tablet 10 mg PO BID 5 Days Qty: 10 0RF No Action levothyroxine 125 mcg capsule 175 mcg PO DAILY linaclotide 290 mcg capsule 290 mcg PO DAILY meloxicam 7.5 mg tablet 7.5 mg PO BID 30 Days Qty: 60 2RF cetirizine 10 MG tablet 10 mg PO DAILY sumatriptan succinate 100 MG tablet 100 mg PO NEEDED PRN (Reason: MIGRAINES) gabapentin 300 MG capsule 300 mg PO TID montelukast 10 MG tablet 10 mg PO PM fluticasone propionate 120 SPR/BOT bottle 2 spr intranasal DAILY Rx Instructions: each nostril Referrals Follow up/Referrals: Jg Edwards MD [Primary Care Provider] - See instructions Activity Restrictions/Add. Instructions Additional Instructions/Restrictions: Drink plenty of fluids. Take tylenol or ibuprofen for pain or fever. Take the medications as directed. Follow up with your regular doctor. GO TO THE ER FOR ANY WORSENING SYMPTOMS Clinical Impressions Clinical Impression: Pharyngitis, Sinusitis Stand Alone Forms Stand Alone Forms: Work/School Release Instructions Patient Instructions: DI for Pharyngitis/Tonsillopharyngitis -- Adult, DI for Sinusitis Discharge ED Provider: Thomas Avila [facility] General Stated complaint: sore throat,cough,vomiting,congestion Time Seen by Provider: 11/05/23 08:35 History of Present Illness Provider Complaint: She states that for the past 2 day she has had sore throat, sinus congestion, productive cough, and chest congestion. Related Data Home Medications Medication Instructions Recorded Confirmed cetirizine 10 mg tablet 10 mg PO DAILY ALLERGIES 02/26/18 01/16/23 gabapentin 300 mg capsule 300 mg PO TID Pain 02/26/18 01/16/23 montelukast 10 mg tablet 10 mg PO PM ALLERGIES/ASTHMA 02/26/18 01/16/23 sumatriptan succinate 100 mg tablet 100 mg PO NEEDED PRN MIGRAINES 02/26/18 01/16/23 levothyroxine 125 mcg capsule 175 mcg PO DAILY thyropid 12/25/19 01/16/23 linaclotide 290 mcg capsule 290 mcg PO DAILY bowels 01/29/20 01/16/23 fluticasone propionate 50 2 spr intranasal DAILY allergies 06/16/21 01/16/23 mcg/actuation nasal spray,suspension Previous Rx's Medication Instructions Recorded meloxicam 7.5 mg tablet 7.5 mg PO BID pain 30 days #60 tabs 01/16/23 amoxicillin 875 mg tablet 875 mg PO Q12H #20 tabs 11/05/23 benzonatate 100 mg capsule 100 mg PO TIDP PRN Cough #30 caps 11/05/23 prednisone 10 mg tablet 10 mg PO BID 5 days #10 tabs 11/05/23 Allergies Allergy/AdvReac Type Severity Reaction Status Date / Time No Known Allergies Allergy Verified 11/05/23 08:54 [facility] Disclaimer: The information contained in this section may have been updated after the patient was seen, as this information can be updated by other users. 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
[2023-11-05 08:56] LABS: UTC Strep Screen (Rapid) Negative (Negative)
[2023-11-05 08:57] LABS: UTC Influenza A Antigen Negative (Negative); UTC Influenza B Antigen Negative (Negative)
[2023-11-05 09:22] VITALS: BP 118/65; PULSE 77; RESP 18; TEMP 37; O2SAT 97
== END 2023-11-05 09:22 | disposition home or self-care (01) ==
PROVIDERS: Emergency Provider Nurse Practitioner Family; PCP Internal Medicine Adolescent Medicine
DX: J01.90 Acute sinusitis, unspecified (principal); J02.9 Acute pharyngitis, unspecified; R11.2 Nausea with vomiting, unspecified; R05.8 Other specified cough; R09.89 Other specified symptoms and signs involving the circulatory and respiratory systems; R09.81 Nasal congestion; E03.9 Hypothyroidism, unspecified
CPT/HCPCS: 87804; 87880; 99212; 99214; G0463

== ENCOUNTER 2023-11-07 08:08 | Emergency (ER) | payer OTHER, SELFPAY ==
[2023-11-07 08:25] VITALS: BP 109/68; PULSE 76; RESP 18; TEMP 36.6; O2SAT 98; BMI 27.8
[2023-11-07 08:28] VITALS: BMI 27.8
--- NOTE | 2023-11-07 08:54 | EXP.UTC ---
Discharge Plan Disposition Patient Disposition: Home, Self-Care Condition: Good Prescriptions Prescriptions: No Action levothyroxine 125 mcg capsule 175 mcg PO DAILY linaclotide 290 mcg capsule 290 mcg PO DAILY meloxicam 7.5 mg tablet 7.5 mg PO BID 30 Days Qty: 60 2RF cetirizine 10 MG tablet 10 mg PO DAILY sumatriptan succinate 100 MG tablet 100 mg PO NEEDED PRN (Reason: MIGRAINES) gabapentin 300 MG capsule 300 mg PO TID montelukast 10 MG tablet 10 mg PO PM amoxicillin [amoxicillin] 875 mg tablet 875 mg PO Q12H Qty: 20 0RF benzonatate [benzonatate] 100 mg capsule 100 mg PO TIDP PRN (Reason: Cough) Qty: 30 0RF prednisone 10 mg tablet 10 mg PO BID 5 Days Qty: 10 0RF fluticasone propionate 120 SPR/BOT bottle 2 spr intranasal DAILY Rx Instructions: each nostril Referrals Follow up/Referrals: Jg Edwards MD [Primary Care Provider] - See instructions Activity Restrictions/Add. Instructions Additional Instructions/Restrictions: No sign of a bacterial infection. Likely viral. Viruses can take 7-14 days to run their course. Nasal saline and bulb syringe or nose Karin to remove nasal drainage to help with nasal congestion. Hard to eat, drink, sleep with nasal congestion so important to keep this cleaned out. Monitor temp. Tylenol or Motrin as needed for pain or fever Encourage fluids, water, Gatorade, Powerade, Pedialyte if infant/toddler/child Warm salt water gargles Warm fluids Sore throat lozenges Sleep elevated Humidifier/vaporizer Follow-up immediately for new or worsening symptoms or no noticeable improvement over the next 48-72 hours. Clinical Impressions Clinical Impression: Upper respiratory infection, viral Stand Alone Forms Stand Alone Forms: Work/School Release Instructions Patient Instructions: DI for Viral Upper Respiratory Infection -- Adult Discharge ED Provider: Tennille ([facility])Cecelia [facility] [place] HPI General Stated complaint: Sore throat, congestion, headache, Mode of Arrival: Ambulatory Source of Information: Patient Limitations: No Limitations Time Seen by Provider: 11/07/23 08:54 Description of Symptoms (Recalled from Triage Doc. by RN): coughing, achy, sore throat, fatigue, and fever HEENT Symptoms (Recalled from RN notes): Yes Resp Symptoms (Recalled from RN notes): No Skin Symptoms (Recalled from RN notes): No MS Symptoms (Recalled from RN notes): No Functional Status (Recalled from RN notes): n/a History of Present Illness Provider Complaint: 53 yr old female presents for coughing, achy, sore throat, fatigue, and fever since Sunday. is taking antibiotics Related Data Home Medications Medication Instructions Recorded Confirmed cetirizine 10 mg tablet 10 mg PO DAILY ALLERGIES 02/26/18 11/07/23 gabapentin 300 mg capsule 300 mg PO TID Pain 02/26/18 11/07/23 montelukast 10 mg tablet 10 mg PO PM ALLERGIES/ASTHMA 02/26/18 11/07/23 sumatriptan succinate 100 mg tablet 100 mg PO NEEDED PRN MIGRAINES 02/26/18 11/07/23 levothyroxine 125 mcg capsule 175 mcg PO DAILY thyropid 12/25/19 11/07/23 linaclotide 290 mcg capsule 290 mcg PO DAILY bowels 01/29/20 11/07/23 fluticasone propionate 50 2 spr intranasal DAILY allergies 06/16/21 11/07/23 mcg/actuation nasal spray,suspension Previous Rx's Medication Instructions Recorded meloxicam 7.5 mg tablet 7.5 mg PO BID pain 30 days #60 tabs 01/16/23 amoxicillin 875 mg tablet 875 mg PO Q12H #20 tabs 11/05/23 benzonatate 100 mg capsule 100 mg PO TIDP PRN Cough #30 caps 11/05/23 prednisone 10 mg tablet 10 mg PO BID 5 days #10 tabs 11/05/23 Allergies Allergy/AdvReac Type Severity Reaction Status Date / Time No Known Allergies Allergy Verified 11/07/23 08:48 Worker's Comp Is this a Worker's Comp case?: No [facility] Disclaimer: The information contained in this section may have been updated after the patient was seen, as this information can be updated by
[2023-11-07 09:05] VITALS: BP 109/68; PULSE 76; RESP 18; TEMP 36.6; O2SAT 98
[2023-11-07 09:31] LABS: Adenovirus,PCR Not Detected (NotDetected); Coronavirus 19, PCR Not Detected (NotDetected); Coronavirus 229E Not Detected (NotDetected); Coronavirus NL63 Not Detected (NotDetected); Coronavirus OC43 Not Detected (NotDetected); Coronovirus HKU1,PCR Not Detected (NotDetected); Human Metapneumovirus Not Detected (NotDetected); Influenza A, PCR Not Detected (NotDetected); Influenza AH1, 2009 Not Detected (NotDetected); Influenza AH1, PCR Not Detected (NotDetected); Influenza AH3,PCR Not Detected (NotDetected); Influenza B, PCR Not Detected (NotDetected); Parainfluenza 1, PCR Not Detected (NotDetected); Parainfluenza 2, PCR Not Detected (NotDetected); Parainfluenza 3, PCR Not Detected (NotDetected); Parainfluenza 4, PCR Not Detected (NotDetected); Respiratory Syncytial Virus Not Detected (NotDetected); Rhinovirus/Enterovirus Not Detected (NotDetected)
== END 2023-11-07 09:05 | disposition home or self-care (01) ==
PROVIDERS: Emergency Provider Nurse Practitioner Family; PCP Internal Medicine Adolescent Medicine
DX: R51.9 Headache, unspecified (principal); J06.9 Acute upper respiratory infection, unspecified; R07.0 Pain in throat; R09.81 Nasal congestion; R05.9 Cough, unspecified; R50.9 Fever, unspecified; R53.83 Other fatigue; B34.9 Viral infection, unspecified; E03.9 Hypothyroidism, unspecified
CPT/HCPCS: 87632; 87635; 99212; 99213; G0463

== ENCOUNTER 2023-12-04 14:57 | Outpatient (CLI) | payer OTHER, SELFPAY ==
--- NOTE | 2023-12-04 15:00 | US_ITS ---
FINAL REPORT TECHNIQUE: Limited sonographic images of the thyroid were obtained. CLINICAL HISTORY: THYROIDITIS COMPARISON: 05/07/2023 FINDINGS: The right lobe of the thyroid measures 5.5 x 2.8 x 1.6 cm. There is a 14 x 11 x 6 mm solid, hyperechoic nodule consistent with TI-RADS category 3. Finding is stable since prior. The left lobe of the thyroid measures 5.2 x 1.6 x 1.6 cm. There is a 10 x 8 x 6 mm solid, hyperechoic solid nodule consistent with TI-RADS category 3. Finding is stable since prior. Multiple other small nodules are identified, overall stable consistent with multinodular goiter. The isthmus measures 5 mm. IMPRESSION: Multinodular goiter, stable. Reviewed, Interpreted and Dictated by Gene Baker III, MD Transcribed by Therese Cortes Authenticated and [facility]
== END 2023-12-04 23:59 ==
LOC: RAD 14:57
PROVIDERS: PCP Internal Medicine Adolescent Medicine; Visit Provider Nurse Practitioner Family
DX: E06.9 Thyroiditis, unspecified (principal)
CPT/HCPCS: 76536

== ENCOUNTER 2024-01-02 08:42 | Emergency (ER) | payer OTHER, SELFPAY ==
[2024-01-02 08:59] VITALS: BP 119/76; PULSE 81; RESP 18; TEMP 36.8; O2SAT 98; BMI 28.7
--- NOTE | 2024-01-02 09:11 | ED_ITS ---
Discharge Plan Disposition Patient Disposition: Home, Self-Care Condition: Good Prescriptions Prescriptions: New methylprednisolone [Medrol (Yariel)] 4 mg tablets,dose pack See Rx Instructions .Route .COMPLEX 6 Days Qty: 21 0RF Rx Instructions: taper pack; amoxicillin-pot clavulanate 875-125 mg Tablet 1 tab PO Q12H 7 Days Qty: 14 0RF No Action levothyroxine 125 mcg capsule 175 mcg PO DAILY linaclotide 290 mcg capsule 290 mcg PO DAILY meloxicam 7.5 mg tablet 7.5 mg PO BID 30 Days Qty: 60 2RF cetirizine 10 MG tablet 10 mg PO DAILY sumatriptan succinate 100 MG tablet 100 mg PO NEEDED PRN (Reason: MIGRAINES) gabapentin 300 MG capsule 300 mg PO TID montelukast 10 MG tablet 10 mg PO PM amoxicillin [amoxicillin] 875 mg tablet 875 mg PO Q12H Qty: 20 0RF benzonatate [benzonatate] 100 mg capsule 100 mg PO TIDP PRN (Reason: Cough) Qty: 30 0RF prednisone 10 mg tablet 10 mg PO BID 5 Days Qty: 10 0RF fluticasone propionate 120 SPR/BOT bottle 2 spr intranasal DAILY Rx Instructions: each nostril Referrals Follow up/Referrals: Jg Edwards MD [Primary Care Provider] - See instructions Activity Restrictions/Add. Instructions Additional Instructions/Restrictions: *Monitor Temp, Over the counter Motrin or Tylenol as directed/as needed Tylenol every 4 hours and Motrin every 6 hours (as long as your family doctor has told you that you can take it) for fever or pain. and straight to ER if unable to lower temp less than 101.0 after medication given *Warm salt water gargles may help to soothe the throat *Throat Lozenges? *Warm fluids like tea with honey may help to soothe the throat? *Sleep elevated *Humidifier/Vaporizer Take medication as prescribed Follow up IMMEDIATELY for new or worsening symptoms or no Noticeable improvement over the next 48-72 hours. 911 for difficulty breathing or swallowing Clinical Impressions Clinical Impression: Otitis media Qualifiers: Otitis media type: unspecified Laterality: left Qualified Code(s): H66.92 - Otitis media, unspecified, left ear Instructions Patient Instructions: DI for Sinusitis, Middle Ear Infection Discharge ED Provider: Kyung Gentile [facility] [place] H[place] General Stated complaint: ear pain, headache Mode of Arrival: Ambulatory Source of Information: Patient Limitations: No Limitations Time Seen by Provider: 01/02/24 09:11 Description of Symptoms (Recalled from Triage Doc. by RN): Patient reports headache, right ear ache, sinus pressure for 2 days. HEENT Symptoms (Recalled from RN notes): Yes Resp Symptoms (Recalled from RN notes): No Skin Symptoms (Recalled from RN notes): No MS Symptoms (Recalled from RN notes): No Functional Status (Recalled from RN notes): wnl History of Present Illness Provider Complaint: Patient states that she has been having sinus pain and pressure with sinus headache for the last couple of days and having pain in her right ear States that today the sinus congestion was worse so she came in to get something for it Related Data Home Medications Medication Instructions Recorded Confirmed cetirizine 10 mg tablet 10 mg PO DAILY ALLERGIES 02/26/18 11/07/23 gabapentin 300 mg capsule 300 mg PO TID Pain 02/26/18 11/07/23 montelukast 10 mg tablet 10 mg PO PM ALLERGIES/ASTHMA 02/26/18 11/07/23 sumatriptan succinate 100 mg tablet 100 mg PO NEEDED PRN MIGRAINES 02/26/18 11/07/23 levothyroxine 125 mcg capsule 175 mcg PO DAILY thyropid 12/25/19 11/07/23 linaclotide 290 mcg capsule 290 mcg PO DAILY bowels 01/29/20 11/07/23 fluticasone propionate 50 2 spr intranasal DAILY allergies 06/16/21 11/07/23 mcg/actuation nasal spray,suspension Previous Rx's Medication Instructions Recorded meloxicam 7.5 mg tablet 7.5 mg PO BID pain 30 days #60 tabs 01/16/23 amoxicillin 875 mg tablet 875 mg PO Q12H #20 tabs 11/05/23 benzonatate 100 mg capsule 100 mg PO TIDP PRN Cough #30 caps 11/05/23 prednisone 10 mg tablet 10 mg PO BID 5 days #10 tabs 11/05/23 amoxicillin 875 mg-potassium 1 tab PO Q12H 7 days #14 tabs 01/02/24 clavulanate 125 mg tablet methylprednisolone 4 mg tablets in See Rx Instructions .Route 01/02/24 a dose pack (Medrol (Yariel)) .COMPLEX 6 days #21 tabs Allergies Allergy/AdvReac Type Severity Reaction Status Date / Time No Known Allergies Allergy Verified 11/07/23 08:48 Worker's Comp Is this a Worker's Comp case?: No [facility] Disclaimer: The information contained in this section may have been updated after the patient was seen, as this information can be updated by other users. 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[employer] current occupational exposures/hazards: No caffeine: Yes ROS Obtained: Yes All systems reviewed & no additional complaints except as documented and Yes Systems reviewed as appropriate & no additional complaints except as documented Constitutional Constitutional: Reports system reviewed and no additional complaints, except as documented, Reports as per HPI and Reports headache(s) (reports sinus headache) ENT Ears, Nose, Mouth, and Throat: Reports system reviewed and no additional complaints, except as documented, Reports as per HPI, Reports otalgia, Reports headache(s) (reports sinus headache), Reports nasal congestion and Reports sinus pressure Cardiovascular Cardiovascular: Reports system reviewed and no additional complaints, except as documented and Reports as per HPI Respiratory Respiratory: Reports system reviewed and no additional complaints, except as documented and Reports as per HPI Gastrointestinal Gastrointestingal: Reports system reviewed and no additional complaints, except as documented and as per HPI Neurologic Neurologic: Reports headache(s) (reports sinus headache) Physical Exam General General appearance: alert and in no apparent distress ENT ENT exam: Present mucous membranes moist Expanded ENT Exam TM/Canal exam: Left TM: erythema and Bilateral TM: bulging Nose exam: Present sinus tenderness Respiratory Respiratory exam: Present normal lung sounds bilaterally; Absent respiratory distress or wheezes Cardiovascular Cardiovascular exam: Present regular rate, normal rhythm and normal heart sounds Abdominal Exam Abdominal exam: Present soft and normal bowel sounds; Absent distention or tenderness Neurological Exam Neurological exam: Present alert, oriented X3 and normal gait Medical Decision Making Len Inquiry Pt receiving controlled substance: No Len was queried for this patient: No Vital Signs: 01/02/24 08:59 Temperature 98.3 F Temperature Source Oral Pulse Rate [Radial] 81 Respiratory Rate 18 Blood Pressure [Right Arm] 119/76 Blood Pressure Mean [Right Arm] 90 Blood Pressure Source [Right Arm] Automatic Cuff Blood Pressure Position [Right Arm] Sitting 02 Sat by Pulse Oximetry 98 Oxygen Delivery Method Room Air
[2024-01-02 09:28] VITALS: BP 119/76; PULSE 81; RESP 18; TEMP 36.8; O2SAT 98
== END 2024-01-02 09:29 | disposition home or self-care (01) ==
PROVIDERS: Emergency Provider Nurse Practitioner; PCP Internal Medicine Adolescent Medicine
DX: J01.90 Acute sinusitis, unspecified (principal); H66.92 Otitis media, unspecified, left ear; R51.9 Headache, unspecified; R09.81 Nasal congestion; E03.9 Hypothyroidism, unspecified
CPT/HCPCS: 99212; 99214; G0463

== ENCOUNTER 2024-05-23 08:48 | Outpatient (CLI) | payer OTHER, SELFPAY ==
--- NOTE | 2024-05-23 08:52 | XR_ITS ---
FINAL REPORT TECHNIQUE: Bone densitometry calculations of the lumbar spine and left hip were obtained. CLINICAL HISTORY: POST MENOPAUSAL FINDINGS: Using L1-4, the bone mineral density of the spine is 0.833 g/cm2, corresponding to T-score of -1.9. Using the left hip, the bone mineral density of the femoral neck is 0.780 g/cm2, corresponding to a T-score of -1.3. Using the right hip, the bone mineral density of the femoral neck is 0.647 g/cm2, corresponding to a T-score of -1.8. NOTE: T-score: Standard deviation compared with peak bone mass of young adult mean. *Following the recommendations of the International Society of Bone densitometry, classification of hip BMD is based on the lower of two T-scores; total hip or femoral neck. IMPRESSION: Diminished bone mineral density of the lumbar spine and left hip consistent with osteopenia. FRAX data reports 7% risk for major osteoporotic fracture and 0.7% risk for hip fracture. Reviewed, Interpreted and Dictated by Светлана Cifuentes MD Transcribed by Therese Cortes Authenticated and [facility]
== END 2024-05-23 23:59 | disposition home or self-care (01) ==
LOC: RAD 08:48
PROVIDERS: PCP Internal Medicine Adolescent Medicine; Visit Provider Nurse Practitioner Family
DX: Z78.0 Asymptomatic menopausal state (principal)
CPT/HCPCS: 77080

== ENCOUNTER 2024-08-12 08:53 | Outpatient (CLI) | payer OTHER, SELFPAY ==
--- NOTE | 2024-08-12 08:56 | MM_ITS ---
PROCEDURE INFORMATION: Exam: MG Bilateral Screening 3D Mammography Exam date and time: 08/12/2024 8:39 AM Age: 54 years old Clinical indication: Screening examination TECHNIQUE: Imaging protocol: Bilateral Screening tomosynthesis and 2D mammography including computer-aided detection (CAD) when performed. COMPARISON: 1. MG MM DIG SCREENING MAMM BI W/CAD 05/07/2023 1:30 PM 2. MG MM DIG SCREENING MAMM BI W/CAD 12/16/2020 8:38 AM FINDINGS: MAMMOGRAPHY: Breast composition: The breasts are heterogeneously dense, which may obscure small masses. Mass: None. Architectural distortion: None. Calcifications: No suspicious calcifications. Asymmetric density: None. Skin thickening: None. Axillary adenopathy: None. IMPRESSION: No mammographic evidence of malignancy. Annual screening is recommended unless otherwise clinically indicated. ASSESSMENT: BI-RADS Category 1: Negative.
== END 2024-08-12 23:59 | disposition home or self-care (01) ==
LOC: RAD 08:53
PROVIDERS: PCP Internal Medicine Adolescent Medicine; Visit Provider Nurse Practitioner Family
DX: Z12.31 Encounter for screening mammogram for malignant neoplasm of breast (principal)
CPT/HCPCS: 77063; 77067

== ENCOUNTER 2024-09-08 08:06 | Outpatient (CLI) | payer OTHER, SELFPAY ==
--- NOTE | 2024-09-08 08:09 | FL_ITS ---
FINAL REPORT CLINICAL HISTORY: dysphagia 544.2 dap 1:14 ft FINDINGS: ESOPHAGRAM HISTORY: . Dysphagia PROCEDURE: The patient ingested barium. Effervescent crystals were also administered. Spot and overhead films were obtained. Fluoro time: 1 minute 14 seconds minutes. DAP: 544.2 uGy.m2 13 images were obtained. FINDINGS: There is a small sliding-type hiatal hernia. No esophageal stricture is identified. A 13 mm barium tablet passes through the esophagus and into the stomach without delay. No gastroesophageal reflux was demonstrated during the exam. IMPRESSION: Small sliding-type hiatal hernia. Films reviewed, interpreted and dictated by Dr. Ying. Transcribed by Venancio Webster PA-C. Reviewed, Interpreted and Dictated by Long Ying MD Transcribed by VIVI Alexandre Authenticated and [facility]
--- NOTE | 2024-09-08 08:09 | US_ITS ---
FINAL REPORT TECHNIQUE: Ultrasound images of the thyroid were obtained. CLINICAL HISTORY: history of multinodular goiter FINDINGS: The right lobe of the thyroid measures 5.7 x 2.0 x 2.2 cm. It is normal in echogenicity. The left lobe of the thyroid measures 4.9 x 1.6 x 2.1 cm. Heterogeneous parenchyma. There are multiple hyperechoic nodules in the right lobe of the thyroid measuring up to 1.5 cm which are solid, ovoid, TR 3. IMPRESSION: TR 3 nodules measuring up to 1.5 cm in the right lobe of the thyroid. Recommend follow-up in 1 year. Reviewed, Interpreted and Dictated by Long Ying MD Transcribed by Ina Dias Authenticated and [facility]
[2024-09-08] MEDS: BARIUM SULFATE (E-Z-HD 340GM);135ML BOTTLE 135 ML PO (08:30)
[2024-09-08] MEDS: BARIUM SULFATE(LIQUID E-Z-PAQUE);355ML BOTTLE 355 ML PO (08:30)
[2024-09-08] MEDS: E-Z-GASII EFFERVESCENT GRANULES;1PK 1 EACH PO (08:31)
== END 2024-09-08 23:59 | disposition home or self-care (01) ==
LOC: RAD 08:07
PROVIDERS: PCP Internal Medicine Adolescent Medicine; Visit Provider Nurse Practitioner
DX: R13.10 Dysphagia, unspecified (principal); E04.9 Nontoxic goiter, unspecified
CPT/HCPCS: 74220; 76536

== ENCOUNTER 2024-09-18 10:13 | Emergency (ER) | payer OTHER, SELFPAY ==
[2024-09-18 10:30] VITALS: BP 116/59; PULSE 69; RESP 20; TEMP 37; O2SAT 95; BMI 29.8
--- NOTE | 2024-09-18 10:32 | EXP.UTC ---
Discharge Plan Disposition Patient Disposition: Home, Self-Care Condition: Good Prescriptions Prescriptions: New amoxicillin 875 mg tablet 875 mg PO Q12H Qty: 20 0RF benzonatate 100 mg capsule 100 mg PO TIDP PRN (Reason: Cough) Qty: 30 0RF methylprednisolone 4 mg Tablets,Dose Pack 4 mg PO DIRECTED 6 Days Qty: 21 0RF Rx Instructions: Take 1 pack as directed for 6 days No Action albuterol sulfate [Ventolin HFA] 90 mcg/actuation HFA aerosol inhaler inhalation calcium carbonate-vitamin D3 250 mg-3.125 mcg (125 unit) tablet 1 tab PO DAILY ergocalciferol (vitamin D2) [Vitamin D2] 1,250 mcg (50,000 unit) capsule 1,250 mcg PO WEEKLY levothyroxine 200 mcg tablet 200 mcg PO DAILY cyanocobalamin (vitamin B-12) 1,000 mcg tablet extended release PO azelastine 137 mcg (0.1 %) spray,non-aerosol 2 spray intranasal BID Qty: 30 2RF Rx Instructions: administer into each nostril methylprednisolone [Medrol (Yariel)] 4 mg tablets,dose pack See Rx Instructions PO PER PKG DIR Qty: 21 0RF Rx Instructions: PO PER PKG DIR furosemide 20 mg tablet 20 mg PO DAILY PRN linaclotide 290 mcg capsule 290 mcg PO DAILY meloxicam 7.5 mg tablet 7.5 mg PO BID 30 Days Qty: 60 2RF cetirizine 10 MG tablet 10 mg PO DAILY sumatriptan succinate 100 MG tablet 100 mg PO NEEDED PRN (Reason: MIGRAINES) montelukast 10 MG tablet 10 mg PO PM fluticasone propionate 120 SPR/BOT bottle 2 spr intranasal DAILY Rx Instructions: each nostril cetirizine 10 mg tablet 10 mg PO DAILY albuterol sulfate [Ventolin HFA] 90 mcg/actuation HFA aerosol inhaler 1 puff INHALATION DAILY Referrals Follow up/Referrals: Jg Edwards MD [Primary Care Provider] - See instructions Activity Restrictions/Add. Instructions Additional Instructions/Restrictions: Drink plenty of fluids. Take tylenol or ibuprofen for pain or fever. Take the medications as directed. Follow up with your regular doctor. GO TO THE ER FOR ANY WORSENING SYMPTOMS Clinical Impressions Clinical Impression: Sinusitis, Otitis media Instructions Patient Instructions: Sinusitis, DI for Sinusitis Print Language Print Language: Syriac Discharge ED Provider: Thomas Avila [facility] [place] HPI General Stated complaint: ear pain, sinus pressure Time Seen by Provider: 09/18/24 10:32 Related Data Home Medications ?Medication ?Instructions ?Recorded ?Confirmed cetirizine 10 mg tablet 10 mg PO DAILY ALLERGIES 02/26/18 09/11/24 montelukast 10 mg tablet 10 mg PO PM ALLERGIES/ASTHMA 02/26/18 09/11/24 sumatriptan succinate 100 mg tablet 100 mg PO NEEDED PRN MIGRAINES 02/26/18 09/11/24 linaclotide 290 mcg capsule 290 mcg PO DAILY bowels 01/29/20 09/11/24 fluticasone propionate 50 2 spr intranasal DAILY allergies 06/16/21 09/11/24 mcg/actuation nasal spray,suspension albuterol sulfate 90 mcg/actuation inhalation 08/12/24 09/11/24 aerosol inhaler (Ventolin HFA) calcium 250 mg (as 1 tab PO DAILY 08/12/24 09/11/24 carbonate)-vitamin D3 3.125 mcg (125 unit) tablet cyanocobalamin (vitamin B-12) mcg PO 08/12/24 09/11/24 1,000 mcg tablet,extended release ergocalciferol (vitamin D2) 1,250 1,250 mcg PO WEEKLY 08/12/24 09/11/24 mcg (50,000 unit) capsule (Vitamin D2) levothyroxine 200 mcg tablet 200 mcg PO DAILY 08/12/24 09/11/24 furosemide 20 mg tablet 20 mg PO DAILY PRN 09/11/24 09/11/24 albuterol sulfate 90 mcg/actuation 1 puff inhalation DAILY 09/18/24 09/18/24 aerosol inhaler (Ventolin HFA) cetirizine 10 mg tablet 10 mg PO DAILY 09/18/24 09/18/24 Previous Rx's ?Medication ?Instructions ?Recorded meloxicam 7.5 mg tablet 7.5 mg PO BID pain 30 days #60 tabs 01/16/23 azelastine 137 mcg (0.1 %) nasal 2 spray intranasal BID #30 mL 08/12/24 spray methylprednisolone 4 mg tablets in See Rx Instructions PO PER PKG DIR 08/12/24 a dose pack (Medrol (Yariel)) #21 tabs amoxicillin 875 mg tablet 875 mg PO Q12H #20 tabs 09/18/24 benzonatate 100 mg capsule 100 mg PO TIDP PRN Cough #30 caps 09/18/24 methylprednisolone 4 mg tablets in 4 mg PO DIRECTED 6 days #21 tabs 09/18/24 a dose pack Allergies Allergy/AdvReac Type Severity Reaction Status Date / Time No Known Allergies Allergy Verified 09/11/24 10:25 [facility] Disclaimer: The information contained in this section may have been updated after the patient was seen, as this information can be updated by other users. 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[employer] current occupational exposures/hazards: No caffeine: Yes ROS Obtained: Yes All systems reviewed & no additional complaints except as documented Constitutional Constitutional: Reports poor appetite Eyes Eyes: Reports system reviewed and no additional complaints, except as documented ENT Ears, Nose, Mouth, and Throat: Reports as per HPI Cardiovascular Cardiovascular: Reports system reviewed and no additional complaints, except as documented and Denies chest pain Respiratory Respiratory: Denies shortness of breath, Denies chest congestion, Reports cough, Denies stridor and Denies wheezing Gastrointestinal Gastrointestingal: Reports system reviewed and no additional complaints, except as documented; Denies abdominal pain, diarrhea or vomiting Musculoskeletal Musculoskeletal: Reports system reviewed and no additional complaints, except as documented and Denies arthralgias Integumentary/Breasts Skin/Breast: Reports system reviewed and no additional complaints, except as documented and Denies rash Neurologic Neurologic: Denies paresthesias Allergic/Immunologic Allergic/Immunologic: Denies wheezing Physical Exam General General appearance: alert and in no apparent distress Eye Eye exam: Present normal appearance, PERRL and EOMI ENT ENT exam: Present mucous membranes moist and normal external ear exam Expanded ENT Exam External ear exam: Present normal external inspection TM/Canal exam: Bilateral TM: erythema and bulging Nose exam: Absent sinus tenderness Nasal speculum exam: Bilateral: normal Mouth exam: Present normal external inspection; Absent drooling Teeth exam: Present normal inspection Throat exam: Present tonsillar erythema and tonsillomegaly Neck Neck exam: Present normal inspection, full ROM and trachea midline; Absent tenderness, lymphadenopathy or thyromegaly Chest Chest inspection: Present normal inspection and symmetric chest wall rise; Absent tenderness or rash Respiratory Respiratory exam: Present normal lung sounds bilaterally; Absent respiratory distress, wheezes, stridor or accessory muscle use Cardiovascular Cardiovascular exam: Present regular rate, normal rhythm and normal heart sounds Abdominal Exam Abdominal exam: Present soft; Absent distention, tenderness, guarding, rebound or rigidity Extremities Exam Extremities exam: Present normal inspection, full ROM and normal capillary refill; Absent tenderness or calf tenderness Back Exam Back exam: Present normal inspection and full ROM; Absent tenderness Neurological Exam Neurological exam: Present alert and oriented X3 Psychiatric Psychiatric exam: Present normal affect and normal mood Skin Skin exam: Present warm, dry, intact and normal color Lymphatic Lymphatic Findings: no adenopathy Medical Decision Making Medical Records Medical records reviewed: No I reviewed the patient's medical records. Screening: Per USPSTF and CDC recommendations, given the prevalence of disease in our region, it is our hospital?s policy to screen for HIV and viral Hepatitis for all patients aged 18 and over and those with ongoing risk factors. Len Inquiry Pt receiving controlled substance: No
[2024-09-18 11:21] VITALS: BP 116/59; PULSE 69; RESP 20; TEMP 37; O2SAT 95
== END 2024-09-18 11:24 | disposition home or self-care (01) ==
PROVIDERS: Emergency Provider Nurse Practitioner Family; PCP Internal Medicine Adolescent Medicine
DX: H66.93 Otitis media, unspecified, bilateral (principal); H92.03 Otalgia, bilateral; J32.9 Chronic sinusitis, unspecified
CPT/HCPCS: 99212; G0381

== ENCOUNTER 2024-09-23 10:20 | Outpatient (POV) | payer OTHER, SELFPAY | END 2024-09-23 23:59 | disposition home or self-care (01) | LOC: SC 10:20 | PROVIDERS: Visit Provider Specialist/Technologist | DX: Z00.00 Encounter for general adult medical examination without abnormal findings (principal) ==

== ENCOUNTER 2024-10-13 08:46 | Emergency (ER) | payer OTHER, SELFPAY ==
[2024-10-13 09:10] VITALS: BP 120/69; PULSE 72; RESP 19; TEMP 36.9; O2SAT 97; BMI 29.2
--- NOTE | 2024-10-13 09:28 | EXP.UTC ---
Discharge Plan Disposition Patient Disposition: Home, Self-Care Condition: Good Prescriptions Prescriptions: New benzonatate 100 mg capsule 100 mg PO TID PRN (Reason: cough) Qty: 30 0RF methylprednisolone [Medrol (Yariel)] 4 mg tablets,dose pack See Rx Instructions .Route .COMPLEX 6 Days Qty: 21 0RF Rx Instructions: taper pack; amoxicillin-pot clavulanate 875-125 mg Tablet 1 tab PO Q12H Qty: 20 0RF No Action albuterol sulfate [Ventolin HFA] 90 mcg/actuation HFA aerosol inhaler inhalation ergocalciferol (vitamin D2) [Vitamin D2] 1,250 mcg (50,000 unit) capsule 1,250 mcg PO WEEKLY meloxicam 7.5 mg tablet 7.5 mg PO BID 30 Days Qty: 60 2RF albuterol sulfate [Ventolin HFA] 90 mcg/actuation HFA aerosol inhaler 1 puff INHALATION DAILY Referrals Follow up/Referrals: Jg Edwards MD [Primary Care Provider] - See instructions Activity Restrictions/Add. Instructions Additional Instructions/Restrictions: Monitor Temp, Over the counter Motrin or Tylenol as directed/as needed Tylenol every 4 hours and Motrin every 6 hours (as long as your family doctor has told you that you can take it) for fever or pain. and straight to ER if unable to lower temp less than 101.0 after medication given *Warm salt water gargles may help to soothe the throat *Throat Lozenges? *Warm fluids like tea with honey may help to soothe the throat? *Sleep elevated *Humidifier/Vaporizer Take medication as prescribed Follow up IMMEDIATELY for new or worsening symptoms or no Noticeable improvement over the next 48-72 hours. 911 for difficulty breathing or swallowing Clinical Impressions Clinical Impression: Sinusitis, Otitis media Instructions Patient Instructions: DI for Sinusitis, Middle Ear Infection Print Language Print Language: Turkmen Discharge ED Provider: Kyung Gentile [facility] [place] HPI General Stated complaint: cough, Pain in R ear, sinus pressure, headache Mode of Arrival: Ambulatory Source of Information: Patient Time Seen by Provider: 10/13/24 09:28 Description of Symptoms (Recalled from Triage Doc. by RN): COUGH, RIGHT EAR PAIN, JOSE, CONGESTION HEENT Symptoms (Recalled from RN notes): Yes Resp Symptoms (Recalled from RN notes): Yes Skin Symptoms (Recalled from RN notes): No MS Symptoms (Recalled from RN notes): No Functional Status (Recalled from RN notes): WNL History of Present Illness Provider Complaint: Patient states that she has been having sinus pain and pressure, pain and pressure in her ears worse in the right, and over all not feeling well States today she is having a nasty cough so she came in to get checked Related Data Home Medications ?Medication ?Instructions ?Recorded ?Confirmed albuterol sulfate 90 mcg/actuation inhalation 08/12/24 09/24/24 aerosol inhaler (Ventolin HFA) ergocalciferol (vitamin D2) 1,250 1,250 mcg PO WEEKLY 08/12/24 10/13/24 mcg (50,000 unit) capsule (Vitamin D2) albuterol sulfate 90 mcg/actuation 1 puff inhalation DAILY 09/18/24 09/24/24 aerosol inhaler (Ventolin HFA) Previous Rx's ?Medication ?Instructions ?Recorded meloxicam 7.5 mg tablet 7.5 mg PO BID pain 30 days #60 tabs 01/16/23 amoxicillin 875 mg-potassium 1 tab PO Q12H #20 tabs 10/13/24 clavulanate 125 mg tablet benzonatate 100 mg capsule 100 mg PO TID PRN cough #30 caps 10/13/24 methylprednisolone 4 mg tablets in See Rx Instructions .Route 10/13/24 a dose pack (Medrol (Yariel)) .COMPLEX 6 days #21 tabs Allergies Allergy/AdvReac Type Severity Reaction Status Date / Time No Known Allergies Allergy Verified 09/24/24 15:35 Worker's Comp Is this a Worker's Comp case?: No [facility] Disclaimer: The information contained in this section may have been updated after the patient was seen, as this information can be updated by other users. Medical History (Updated 10/13/24 @ 09:36 by Kyung Gentile APRN) Deviated septum Eustachian tube dysfunction Right chronic serous otitis media ETD (eustachian tube dysfunction) SNHL (sensorineural hearing loss) Choking Hearing difficulty of both ears Difficulty swallowing Difficulty swallowing, mixes medication with food Hiatal hernia Goiter Thyroid disease Depression Anxiety Migraine COPD (chronic obstructive pulmonary disease) Surgical History History of removal of cyst History of tonsillectomy History of hysterectomy Social History Smoking Status: Never smoker second hand exposure: No alcohol intake: never substance use type: denies use current occupational status: employed Travel in the last 8 weeks: None household members: significant other housing: house 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[employer] current occupational exposures/hazards: No caffeine: Yes ROS Obtained: Yes All systems reviewed & no additional complaints except as documented and Yes Systems reviewed as appropriate & no additional complaints except as documented Constitutional Constitutional: Reports system reviewed and no additional complaints, except as documented and Reports as per HPI Eyes Eyes: Reports system reviewed and no additional complaints, except as documented and Reports as per HPI ENT Ears, Nose, Mouth, and Throat: Reports system reviewed and no additional complaints, except as documented, Reports as per HPI, Reports otalgia, Reports sinus pain and Reports sinus pressure Cardiovascular Cardiovascular: Reports system reviewed and no additional complaints, except as documented and Reports as per HPI Respiratory Respiratory: Reports system reviewed and no additional complaints, except as documented, Reports as per HPI and Reports cough Gastrointestinal Gastrointestingal: Reports system reviewed and no additional complaints, except as documented and as per HPI Genitourinary Female Genitourinary: Reports system reviewed and no additional complaints, except as documented and Reports as per HPI Musculoskeletal Musculoskeletal: Reports system reviewed and no additional complaints, except as documented and Reports as per HPI Physical Exam General General appearance: alert and in no apparent distress ENT ENT exam: Present mucous membranes moist Expanded ENT Exam TM/Canal exam: Left TM: erythema and Bilateral TM: bulging Nose exam: Present sinus tenderness Throat exam: Present other (PND noted ) Respiratory Respiratory exam: Present normal lung sounds bilaterally; Absent respiratory distress or wheezes Cardiovascular Cardiovascular exam: Present regular rate, normal rhythm and normal heart sounds Abdominal Exam Abdominal exam: Present soft and normal bowel sounds; Absent distention or tenderness Neurological Exam Neurological exam: Present alert, oriented X3 and normal gait Medical Decision Making Medical Records Screening: Per USPSTF and CDC recommendations, given the prevalence of disease in our region, it is our hospital?s policy to screen for HIV and viral Hepatitis for all patients aged 18 and over and those with ongoing risk factors. Len Inquiry Pt receiving controlled substance: No Len was queried for this patient: No Vital Signs: 10/13/24 09:10 Temperature 98.5 F Temperature Source Oral Pulse Rate [Left Radial] 72 Respiratory Rate 19 Blood Pressure [Left Arm] 120/69 Blood Pressure Mean [Left Arm] 86 02 Sat by Pulse Oximetry 97
[2024-10-13 09:48] VITALS: BP 120/69; PULSE 72; RESP 19; TEMP 36.9
== END 2024-10-13 09:52 | disposition home or self-care (01) ==
PROVIDERS: Emergency Provider Nurse Practitioner; PCP Internal Medicine Adolescent Medicine
DX: J01.90 Acute sinusitis, unspecified (principal); H66.93 Otitis media, unspecified, bilateral
CPT/HCPCS: 99213; G0381

== ENCOUNTER 2024-11-06 09:56 | Day surgery (SDC) | payer OTHER, SELFPAY ==
[2024-10-31 15:06] VITALS: BMI 29.2
[2024-11-06] MEDS: LACTATED RINGERS 1000ML 1,000 ML 25 ML IV (10:18)
[2024-11-06 10:19] VITALS: BP 118/70; PULSE 71; RESP 18; TEMP 36.6; O2SAT 98; BMI 29.2
--- NOTE | 2024-11-06 10:27 | P.PNANES_ITS ---
[facility] Disclaimer: The information contained in this section may have been updated after the patient was seen, as this information can be updated by other users. Medical History Deviated septum Eustachian tube dysfunction Right chronic serous otitis media ETD (eustachian tube dysfunction) SNHL (sensorineural hearing loss) Choking Hearing difficulty of both ears Difficulty swallowing Difficulty swallowing, mixes medication with food Hiatal hernia Goiter Thyroid disease Depression Anxiety Migraine COPD (chronic obstructive pulmonary disease) Surgical History History of removal of cyst History of tonsillectomy History of hysterectomy Family History Other Family history of hypothyroidism Family history of osteoporosis in mother Social History Smoking Status: Never smoker second hand exposure: No alcohol intake: never substance use type: denies use current occupational status: employed Travel in the last 8 weeks: None household members: significant other housing: house 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[employer] current occupational exposures/hazards: No caffeine: Yes [facility] Anesthesia Checklist Patient Identification Patient Identification: Arm Band and Verbal (Name & ) Structural Data Admitted From: Home Planned Operative Procedure/s: EGD Consent for Planned Operative Procedure(s) Verified: Yes Verified Documents: Surgical Consent and History and Physical NPO Status Verified Time NPO: 00:00 Additional verifications Anesthesia Reactions: No Airway Assessment Mallampati Score:: Class II C-Spine Mobility Assessed: Yes TMJ Mobility Assessed: Yes Dentition: Good Dentition Neurological Assessment Level of Consciousness: Awake Hx Seizures: No Numbness or tingling in extremities: No Anesthesia Plan Anesthesia Risk discussed: Yes Anesthesia Plan: Verified ASA Class: II Anesthesia Type: MAC
[2024-11-06 12:16] VITALS: O2SAT 98
--- NOTE | 2024-11-06 12:26 | EXP.HP ---
History of Present Illness *Admission Date: 11/06/24 *Reason for visit:: Nausea/vomiting and dysphagia *History of present illness: Mrs. Simms is a 54-year-old female who is here for diagnostic upper endoscopy secondary to nausea/vomiting and dysphagia. The examination is deemed medically necessary for EGD. The patient has been seen, interviewed and examined prior to the procedure by both myself and the anesthesia provider. [facility] Disclaimer: The information contained in this section may have been updated after the patient was seen, as this information can be updated by other users. Medical History Deviated septum Eustachian tube dysfunction Right chronic serous otitis media ETD (eustachian tube dysfunction) SNHL (sensorineural hearing loss) Choking Hearing difficulty of both ears Difficulty swallowing Difficulty swallowing, mixes medication with food Hiatal hernia Goiter Thyroid disease Depression Anxiety Migraine COPD (chronic obstructive pulmonary disease) Surgical History History of removal of cyst History of tonsillectomy History of hysterectomy Family History Other Family history of hypothyroidism Family history of osteoporosis in mother Social History Smoking Status: Never smoker second hand exposure: No alcohol intake: never substance use type: denies use current occupational status: employed Travel in the last 8 weeks: None household members: significant other housing: house 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[employer] current occupational exposures/hazards: No caffeine: Yes Other Medical History Have you received the Flu Vaccine for this season: No Have you received the Pneumonia Vaccine: No Review of Systems Review of Systems Review of systems (narrative): Negative *Cardiovascular Comments: Negative *Gastrointestinal Comments: Negative *Genitourinary Comments: Negative *Musculoskeletal Comments: Negative *Neurologic Comments: Negative Meds Home Medications and Allergies Home Medications ?Medication ?Instructions ?Recorded ?Confirmed ?Type ergocalciferol (vitamin D2) 1,250 1,250 mcg PO WEEKLY 08/12/24 11/06/24 History mcg (50,000 unit) capsule (Vitamin D2) albuterol sulfate 90 mcg/actuation 1 puff inhalation DAILY 09/18/24 10/31/24 History aerosol inhaler (Ventolin HFA) azelastine 137 mcg (0.1 %) nasal 137 mcg intranasal DAILY 10/31/24 10/31/24 History spray cetirizine 10 mg tablet 10 mg PO DAILY 10/31/24 10/31/24 History levothyroxine 200 mcg tablet 200 mcg PO DAILY 10/31/24 11/06/24 History New Prescriptions to Start Prescriptions: Allergies Allergy/AdvReac Type Severity Reaction Status Date / Time No Known Allergies Allergy Verified 10/31/24 15:03 Exam Data for Last 24 hours Vital signs and Labs for Last 24 Hours: Temp Pulse Resp BP Pulse Ox O2 Del Method 97.8 F 71 18 118/70 98 Room Air 11/06/24 10:19 11/06/24 10:19 11/06/24 10:19 11/06/24 10:19 11/06/24 10:19 11/06/24 10:19 I & O for Last 24 hours: Intake & Output 11/03/24 11/04/24 11/05/24 11/06/24 23:59 23:59 23:59 23:59 Weight 160 lb *Routine HEENT Exam Head: Present normocephalic Eye: Present EOMI and PERRL ENT: Present mucous membranes moist *Routine Neck Exam Neck: Present supple *Routine Respiratory Exam Respiratory: Present CTA bilaterally *Routine Cardiovascular Exam Cardiovascular: Present RRR *Routine Abdominal Exam Abdominal: Present soft and normoactive bowel sounds; Absent tenderness *Routine Rectal Exam Rectal:: deferred *Routine Genitalia Exam Genitalia:: deferred *Routine Extremities Exam Extremities: Absent cyanosis, clubbing or edema *Routine Skin Exam Skin: Present warm; Absent rash *Routine Neurological Exam Neurological: Present alert and oriented X3 Assessment and Plan *Assessment and plan (1) Difficulty swallowing: Status: Acute Qualifiers: Dysphagia type: unspecified Qualified Code(s): R13.10 - Dysphagia, unspecified Category: Medical Code(s): R13.10 - Dysphagia, unspecified (2) Choking: Status: Acute Qualifiers: Encounter type: initial encounter Qualified Code(s): T17.308A - Unspecified foreign body in larynx causing other injury, initial encounter Category: Medical Code(s): T17.308A - Unspecified foreign body in larynx causing other injury, initial encounter (3) Heartburn: Status: Acute Category: Medical Code(s): R12 - Heartburn (4) Functional dyspepsia: Status: Acute Category: Medical Code(s): K30 - Functional dyspepsia (5) Nausea & vomiting: Status: Acute Category: Medical Code(s): R11.2 - Nausea with vomiting, unspecified Plan A/P: 1. Nausea/vomiting/dysphagia and dyspepsia is the preprocedural diagnosis. The patient will be anesthetized/sedated using MAC sedation. The patient has been seen and examined. Cardiac and lung assessment prior to the examination is stable. Proceed with planned EGD
--- NOTE | 2024-11-06 12:27 | HMH.PROCNOTE ---
[facility] Procedure Note Date: 11/06/24 Procedure Note:: Upper Endoscopy Procedure Report: Esophagogastroduodenoscopy with cold biopsies and TTS balloon dilation Endoscopost: Jacoby Thompson II, MD Referring Physician: Jg Edwards M.D. Date of Procedure: November 06, 2024 Equipment: Olympus GIF 190 standard upper endoscope Sedation: MAC sedation Indications: Mrs. Simms is a 54-year-old female who is here for diagnostic evaluation of her nausea, vomiting, dysphagia and dyspepsia. The patient has had chronic alternating IBS. She had a colonoscopy with mi in May 2021 and had a single polyp (tubular adenoma) removed. She also had some left-sided diverticulosis. The patient reports symptoms of dysphagia and primarily globus sensation. She has had nausea with intermittent vomiting. She had an EGD with mi in 2020 and was found to have mild esophageal dysmotility with nonerosive GERD. The patient gets heartburn and reflux twice weekly. Her barium swallow showed a small sliding hiatal hernia. She reports no bloating, gassiness, belching, melena or hematochezia. She reports no weight loss. She does get occasional early satiety. She has some intermittent epigastric discomfort and dyspepsia. Procedure: Prior to the procedure, a history and physical exam was performed, and patient's medications and allergies were reviewed. The risks, benefits and alternatives of the sedation and procedure were discussed with the patient. All questions were answered and informed consent was obtained. The patient was brought to the procedure room. Patient identification and proposed procedure were verified by the physician and the nurse. The patient was placed in a left lateral decubitus position and the scope was passed under direct vision. Throughout the procedure, the patient's blood pressure, pulse, and oxygen saturations were monitored continuously. The upper GI endoscopy was accomplished without difficulty. The patient tolerated the procedure well. Findings: The scope was passed directly into the upper esophagus and advanced to the third portion of the duodenum. The post bulbar duodenum and duodenal bulb were normal with normal mucosa and conniventes. The scope was withdrawn through a normal duodenal bulb and pylorus into the stomach. There was some mild linear reactive gastropathy of the antrum. There was mild chronic gastritis of the body and fundus of the stomach. Upon retroflexion there was a very small 1 to 2 cm sliding hiatal hernia. Biopsies were taken along the lesser curvature to rule out H. pylori. The scope was then withdrawn into the esophagus. There was no evidence of reflux esophagitis, Aguilar's or Schatzki's ring. There was no corrugation or furrowing. There were strong tertiary contractions and evidence of moderate esophageal dysmotility. The entire esophagus was dilated to 60 Romanian/20 mm with a TTS hydrostatic balloon. There was some resistance at the cricopharyngeus. There was no inlet patch. The remainder of the esophageal mucosa was normal. Impression: 1. Cricopharyngeal spasm status post dilation to 20 mm 2. Nonerosive GERD with moderate esophageal dysmotility and small 1 to 2 cm hiatal hernia 3. Mild linear reactive gastropathy of antrum and mild chronic gastritis Plan: I will follow-up the biopsies. We will discuss additional treatment options and measures to control her nausea, dyspepsia and esophageal dysmotility.
[2024-11-06 12:40] VITALS: BP 110/63; PULSE 87; RESP 16; TEMP 36.3; O2SAT 93
[2024-11-06 12:50] VITALS: BP 107/60; PULSE 85; RESP 16; O2SAT 93
[2024-11-06 13:00] VITALS: BP 108/67; PULSE 83; RESP 17; O2SAT 94
[2024-11-06 13:10] VITALS: BP 103/63; PULSE 80; RESP 17; O2SAT 94
== END 2024-11-06 13:30 | disposition home or self-care (01) ==
PROVIDERS: PCP Internal Medicine Adolescent Medicine; Visit Provider Internal Medicine Gastroenterology
PROC: 0DJ08ZZ Inspection of Upper Intestinal Tract, Via Natural or Artificial Opening Endoscopic (ICD-10-PCS; CPT 43235; principal; 2024-11-06 11:30)
DX: R13.10 Dysphagia, unspecified (principal); T17.308A Unspecified foreign body in larynx causing other injury, initial encounter; K30 Functional dyspepsia; R11.2 Nausea with vomiting, unspecified; K22.4 Dyskinesia of esophagus; K21.9 Gastro-esophageal reflux disease without esophagitis; J39.2 Other diseases of pharynx; K31.9 Disease of stomach and duodenum, unspecified; K29.70 Gastritis, unspecified, without bleeding
CPT/HCPCS: 43239; 43249; C1726; J7120

== ENCOUNTER 2025-02-06 06:11 | Outpatient (CLI) | payer OTHER, SELFPAY ==
--- NOTE | 2025-02-06 08:05 | XR_ITS ---
FINAL REPORT CLINICAL HISTORY: PAIN COMPARISON: 01/18/2022 FINDINGS: LEFT HIP Three views were obtained. There is no fracture or dislocation. There is mild narrowing of the hip joint space. There are mild to moderate hypertrophic changes at the lateral margin of the hip joint space and along the undersurface of the femoral head. No soft tissue abnormality is identified. IMPRESSION: Moderate osteoarthritis. Reviewed, Interpreted and Dictated by Long Ying MD Transcribed by Therese Cortes Authenticated and [facility]
== END 2025-02-06 23:59 | disposition home or self-care (01) ==
LOC: RAD 06:12
PROVIDERS: PCP Nurse Practitioner Family; Visit Provider Nurse Practitioner Family
DX: M25.552 Pain in left hip (principal)
CPT/HCPCS: 73502

== ENCOUNTER 2025-06-12 10:59 | Outpatient (CLI) | payer OTHER, SELFPAY ==
--- OUTSIDE RECORDS SUMMARY | 2025-04-07 05:00 | XMS_ITS ---
Author Organization [facility] Address [address] [place], [place] [address] Care Team Providers Care Refrigerator Repair Technician Name Role Phone Jg Edwards Primary Care Provider Angie Beal Unavailable [phone] Johana Vaughn Unavailable [phone] REASON FOR VISIT Pain FU, Labs Encounters Encounter Location Date Provider Diagnosis [facility] [address] [place], [place] [address] 04/07/2025 Johana Vaughn Plan Of Treatment No Information Progress Notes * Rebecca MONTOYADOB:1970 ([age] yo F)Acc No.[id number]:04/07/2025 Progress Notes Patient: Rebecca MONDRAGON Provider: MIHIR Joyce :1970 A ge:54 Y S ex:Female Date:04/07/2025 Address:[address], [id number] Pcp:Jg Edwards Subjective: * Chief Complaints: * 1 . Pain FU, Labs. * Medical History: Objective: * Vitals: Assessment: Plan: * Treatment: * * Electronic signature of Zelda Vaughn APRN on 06/12/2025 at 11:02 AM EDT Sign off status: Pending * Provider: MIHIR Joyce Date: 0 04/07/2025 Generated for Praveena wood/Tor/Osbaldo on: 0 06/12/2025 11:02 AM EDT
--- OUTSIDE RECORDS SUMMARY | 2025-05-19 07:45 | XMS_ITS ---
Author Organization [facility] D [facility]AL[facility] Address [address] [place] [address] Care Team Providers Care Incident Handler Name Role Phone Jg Edwards Primary Care Provider [phone] Angie Beal Unavailable [phone] Johana Vaughn Unavailable [phone] Allergies No Known Allergies Results Component Value Reference Range Notes LIPID PANEL, STANDARD (7600) Reviewed date:05/21/2025 10:37:06 AM Interpretation: Performing Lab:REYNA, [facility] [place], [facility] CenterXvinQQ[address] Chris Rodriguez Notes/Report: NON-FASTING; NON-FASTING; NON-FASTING; NON-FASTING; NON-FAST FASTING:YES FASTING: YES CHOLESTEROL, TOTAL 191 <200 mg/dL HDL CHOLESTEROL 49 > OR = 50 mg/dL TRIGLYCERIDES 145 <150 mg/dL LDL-CHOLESTEROL 116 Reference range: <100 Desirable range <100 mg/dL for primary prevention; <70 mg/dL for patients with CHD or diabetic patients with > or = 2 CHD risk factors. LDL-C is now calculated using the Lyubov calculation, which is a validated novel method providing better accuracy than the Friedewald equation in the estimation of LDL-C. Alex SINCLAIR et al. JAYLIN. 2013;310(19): 4891-4908 (http://education.[employer].com/faq/LBT473) CHOL/HDLC RATIO 3.9 <5.0 (calc) NON HDL CHOLESTEROL 142 <130 mg/dL (calc) For patients with diabetes plus 1 major ASCVD risk factor, treating to a non-HDL-C goal of <100 mg/dL (LDL-C of <70 mg/dL) is considered a therapeutic option. COMPREHENSIVE METABOLIC PANE (65092) Reviewed date:05/21/2025 10:37:06 AM Interpretation: Performing Lab:REYNA [employer] [employer], [place] FouwYJ[address] Chris Rodriguez Notes/Report: NON-FASTING; NON-FASTING; NON-FASTING; NON-FASTING; NON-FAST FASTING:YES FASTING: YES GLUCOSE 85 65-99 mg/dL Fasting reference interval UREA NITROGEN (BUN) 12 7-25 mg/dL CREATININE 0.68 0.50-1.03 mg/dL EGFR 103 > OR = 60 mL/min/1.73m2 BUN/CREATININE RATIO SEE NOTE: 6-22 (calc) Not Reported: BUN and Creatinine are within reference range. SODIUM 140 135-146 mmol/L POTASSIUM 3.8 3.5-5.3 mmol/L CHLORIDE 105 98-110 mmol/L CARBON DIOXIDE 24 20-32 mmol/L CALCIUM 9.6 8.6-10.4 mg/dL PROTEIN, TOTAL 7.3 6.1-8.1 g/dL ALBUMIN 4.6 3.6-5.1 g/dL GLOBULIN 2.7 1.9-3.7 g/dL (calc) ALBUMIN/GLOBULIN RATIO 1.7 1.0-2.5 (calc) BILIRUBIN, TOTAL 0.6 0.2-1.2 mg/dL ALKALINE PHOSPHATASE 100 37-153 U/L AST 15 10-35 U/L ALT 10 6-29 U/L CBC (INCLUDES DIFF/PLT) (639 9) Reviewed date:05/21/2025 10:37:06 AM Interpretation: Performing Lab:REYNA [employer], [place] [id number] Chris Rodriguez Notes/Report: NON-FASTING; NON-FASTING; NON-FASTING; NON-FASTING; NON-FAST FASTING:YES FASTING: YES WHITE BLOOD CELL COUNT 7.3 3.8-10.8 Thousand/ uL RED BLOOD CELL COUNT 4.03 3.80-5.10 Million/uL HEMOGLOBIN 12.0 11.7-15.5 g/dL HEMATOCRIT 39.2 35.0-45.0 % MCV 97.3 80.0-100.0 fL MCH 29.8 27.0-33.0 pg MCHC 30.6 32.0-36.0 g/dL For adults, a slight decrease in the calculated MCHC value (in the range of 30 to 32 g/dL) is most likely not clinically significant; however, it should be interpreted with caution in correlation with other red cell parameters and the patient's clinical condition. RDW 13.2 11.0-15.0 % PLATELET COUNT 293 140-400 Thousand/uL MPV 11.4 7.5-12.5 fL ABSOLUTE NEUTROPHILS 3898 7544-3377 cells/uL ABSOLUTE LYMPHOCYTES 2847 850-3900 cells/uL ABSOLUTE MONOCYTES 402 200-950 cells/uL ABSOLUTE EOSINOPHILS 102 15-500 cells/uL ABSOLUTE BASOPHILS 51 0-200 cells/uL NEUTROPHILS 53.4 LYMPHOCYTES 39.0 MONOCYTES 5.5 EOSINOPHILS 1.4 BASOPHILS 0.7 VITAMIN B12 (927) Reviewed date:05/21/2025 10:37:06 AM Interpretation: Performing Lab:REYNA, [employer] [address] [employer], [place]rtvQD[address] Chris Rodriguez Notes/Report: NON-FASTING; NON-FASTING; NON-FASTING; NON-FASTING; NON-FAST FASTING:YES FASTING: YES VITAMIN B12 531 396-9608 pg/mL Please Note: Although the reference range for vitamin B12 is 200-1100 pg/mL, it has been reported that between 5 and 10% of patients with values between 200 and 400 pg/mL may experience neuropsychiatric and hematologic abnormalities due to occult B12 deficiency; less than 1% of patients with values above 400 pg/mL will have symptoms. TSH W/REFLEX TO FT4 (66730) Reviewed date:05/21/2025 10:37:06 AM Interpretation: Performing Lab:REYNA, [employer] [address], [place] HoldingsEdkrNS[address] Chris Rodriguez Notes/Report: NON-FASTING; NON-FASTING; NON-FASTING; NON-FASTING; NON-FAST FASTING:YES FASTING: YES TSH W/REFLEX TO FT4 3.54 Reference Range > or = 20 Years 0.40-4.50 Ranges First trimester 0.26-2.66 Second trimester 0.55-2.73 Third trimester 0.43-2.91 VITAMIN D,25-OH,TOTAL,IA (17 306) Reviewed date:05/21/2025 10:37:06 AM Interpretation: Performing Lab:REY[facility] [address], [place] ManzanaresVfsiQH[address] Chris Rodriguez Notes/Report: NON-FASTING; NON-FASTING; NON-FASTING; NON-FASTING; NON-FAST FASTING:YES FASTING: YES VITAMIN D,25-OH,TOTAL,IA 50 30-100 ng/mL Vitamin D Status 25-OH Vitamin D: Deficiency: <20 ng/mL Insufficiency: 20 - 29 ng/mL Optimal: > or = 30 ng/mL For 25-OH Vitamin D testing on patients on D2-supplementation and patients for whom quantitation of D2 and D3 fractions is required, the QuestAssureD(TM) 25-OH VIT D, (D2,D3), LC/MS/MS is recommended: order code 93508 (patients >2yrs). See Note 1 Note 1 For additional information, please refer to http://education.[employer].com/faq/KAV716 (This link is being provided for informational/ educational purposes only.) Reason For Referral Reason New referral to [facility] orthopedics...she lost insurance when we referred her previously Diagnosis 1 Primary osteoarthrit is of left hip (M16.12) Referral Organization [facility] Referring Provider First Name Johana Referring Provider Last Name Johana Referring Provider Speciality [facility] Referred Organization [facility] Referred Address [address],[address], Referred Provider Specialty Orthopedic S ed General Notes Virginia Acevedo 2024 12:26:16 PM >spoke with patient about appt. Referral Priority Routine Referral Appointment Date 05/28/2025 REASON FOR VISIT thyroid FU, needs labs Medications Medication SIG (Take, Route, Frequency, Duration) Notes Start Date End Date Status Gabapentin 300 MG 1 cap(s) orally 2 times a day for nerve pain; Duration: 30 days 03/30/2025 Active Diclofenac Sodium 75 MG 1 tab(s) orally 2 times a day for joint pain; Duration: 30 days Active Linzess 290 MCG 1 cap(s) orally once a day; Duration: 30 days Active Calcium+D3 250 MG-3.125 MCG 1 TAB(S) ORALLY 2 TIMES A DAY; Duration: 30 DAYS *Please review and pick correct strength-formulati on from [employer] options. If intended option is not shown, discontinue and re-order from Quick Search* 05/27/2024 Active ALBUTEROL (EQV-PROAIR HFA) 90 MCG/INH 2 PUFF(S) INHALED EVERY 6 HOURS NEEDED; Duration: 30 DAYS *Please review for potential replacement for e-prescription and drug interaction check* Active Levothyroxine Sodium 200 MCG 1 tab(s) orally once a day 11/23/2023 Active Cetirizine HCl 10 MG 1 tab(s) orally once a day; Duration: 30 days Active Vitamin D (Ergocalciferol) 1.25 MG (19467 UT) 1 cap(s) orally once a week; Duration: 28 days 08/01/2019 Active Fluticasone Propionate 50 MCG/ACT 2 sprays intranasally for allergies once a day; Duration: 30 days 01/31/2016 Active Singulair 10 MG 1 tab(s) orally once a day (in the evening); Duration: 30 days Active B-12 1000 MCG 1 tab(s) orally once a day; Duration: 30 days 08/01/2019 Active Baclofen 10 MG 1 tab(s) orally at bedtime for muscle spasm; Duration: 30 days Active Furosemide 20 MG 1 tab(s) orally once a day as needed for swelling; Duration: 30 days Active Omeprazole 20 MG 1 cap(s) orally once a day; Duration: 30 day(s) 01/29/2020 Active hydrOXYzine Pamoate 25 MG 1 cap(s) orally every 6 hours PRN anxiety 04/09/2018 Active FLUoxetine HCl 40 MG 1 cap(s) orally once a day; Duration: 30 day(s) 10/20/2019 Active Vital Signs Temperature 97.9 degrees Fahrenheit 05/19/20 25 Heart Rate 80 /min 05/19/2025 Blood pressure systolic 110 mm Hg 05/19/20 25 Blood pressure diastolic 72 mm Hg 025 Height 5 ft 4 in in 05/19/2025 Weight 156 lbs 05/19/2025 BMI 26.77 kg/m2 05/19/2025 Encounters Encounter Location Date Provider Diagnosis formerly [facility] P[facility] [address] [place] [address] 05/19/2025 Johana Vaughn Vitamin D deficiency E55.9 ; Hypothyroidism, unspecified type E03.9 ; B12 deficiency E53.8 ; Osteopenia of multiple sites M85.89 ; Allergic rhinitis due to other allergen J30.89 ; Chronic constipation K59.09 ; Primary osteoarthritis of left hip M16.12 ; Goiter E04.9 and Routine medical exam Z00.00 Assessments Encounter Date Diagnosis (ICD Code) Assessment Notes Treatment Notes Treatment Clinical Notes Section Notes 05/19/2025 Vitamin D deficiency (ICD-10 - E55.9) recommend consult with [facility] clinic at for their opinion regarding her persistently low levels and osteopenia. 05/19/2025 Hypothyroidism, unspecified type (ICD-10 - E03.9) Reassurance that the area where she has been tender recently is not related to her thyroid, her ultrasound of the thyroid is up-to-date due to be repeated again in August. We will update her labs today 05/19/2025 B12 deficiency (ICD-10 - E53.8) 05/19/2025 Osteopenia of multiple sites (ICD-10 - M85.89) 05/19/2025 Allergic rhinitis due to other allergen (ICD-10 - J30.89) continue singulair, flonase, zyrtec. 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 consider new referral 05/19/2025 Chronic constipation (ICD-10 - K59.09) continue Linzess 05/19/2025 Primary osteoarthritis of left hip (ICD-10 - M16.12) diclofenac as needed 05/19/2025 Goiter (ICD-10 - E04.9) causing some pressure sensation in her neck...will first see B[facility] clinic and pending their evaluation, consider Surgical Endo team at 05/19/2025 Routine medical exam (ICD-10 - Z00.00) Plan Of Treatment Treatment Notes Assessment Notes Vitamin D deficiency recommend consult w [facility] Mineral Metabolism clinic at for their opinion regarding her persistently low levels and osteopenia. Allergic rhinitis due to other allergen continue singulair, flonase, zyrtec. 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 consider new referral Chronic constipation continue Linzess Primary osteoarthritis of left hip diclo fenac as needed Goiter causing some pressur e sensation in her neck...will first see [facility] clinic and pending their evaluation, consider Surgical Endo team at Referrals Referral Date Details 05/19/2025 05/19/2025, New refe rral to [facility] orthopedics...she lost insurance when we referred her previously, [address], [place], [address], Next Appt Details Follow Up: 6 Months, Reason: Progress Notes * Rebecca SIMMSDOB:1970 ([age] yo F)Acc No.[id number]:05/19/2025 Progress Notes Patient: Jin MANUELA Rebecca Wang Provider: MIHIR Joyce :1970 A ge:54 Y S ex:Female Date:05/19/2025 Address:[facility] [address], [id number] Pcp:Jg Edwards Subjective: * Chief Complaints: * 1 . thyroid FU, needs labs. * HPI: g en: Presents today t o touch base on chronic illness. Concerned that she may be having some issues with her thyroid function because she has been having some swelling and discomfort in her neck. This has actually been along her jaw line on each side but improving now. She has had some head congestion recently despite taking her allergy medications on a regular basis. No fevers She is due for monitoring labs. She was supposed to see the bone and mineral metabolism clinic a couple months ago but was without insurance for some time so that appointment has had to be rescheduled. Additionally was to see orthopedics here at [facility] regarding her left hip pain and degenerative joint disease but that was also during her period without insurance, she would like to reschedule. * ROS: A LLERGY: See HPI Y es. R ESPIRATORY: no S hortness of breath. n o C ough. ? C ONSTITUTIONAL: Reviewed, No Symptoms Reported: Y es. D ERMATOLOGY: no R fannie. G ASTROENTEROLOGY: no V omiting. n o A bdominal pain. n o D iarrhea. C onstipation y es, i mproved with current tx. U ROLOGY: no D ifficulty urinating. * Medical History: M igraine headache, Hypothyroidism, Cervical cancer-hysterectomy, Asthma and allergies, Anxiety, Thyroid nodule s/p FNA which was nondiagnostic per Dr Stallworth, GERD, Chronic Constipation, Vitamin D Deficiency, Chronic lower extremity pain, Colonoscopy with Dr Thompson 05/2021. * Surgical History: H ysterectomy with right oopherectomy , T & A , Groin Abscess I&D , EGD w esophageal stretching 10/2024. * Hospitalization/Major Diagno stic Procedure: A bscess of groin . * Family History: F ather: alive. M other: alive, stroke. P aternal Grand Father: . P aternal Grand Mother: . M aternal Grand Father: , diabetes. M aternal Grand Mother: , diabetes. P aternal uncle: alive. P aternal aunt: . M aternal uncle: alive, diabetes. M aternal aunt: alive, diabetes. S iblings: alive. 1 brother(s) , 1 sister(s) - healthy. . * Social History: S moking A re you a:: nonsmoker. R ecreational drug use: no. Exercise: yes. Home smoke detector use: yes. Caffeine: yes, frequency: 1-2 sodas daily, tea. Living Will: No. Alcohol: no. Sexually active: yes. Travel outside [place]: no. 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 * Medications: T aking Omeprazole 20 MG Capsule Delayed Release 1 cap(s) orally once a day , Taking hydrOXYzine Pamoate 25 MG Capsule 1 cap(s) orally every 6 hours PRN anxiety , Taking FLUoxetine HCl 40 MG Capsule 1 cap(s) orally once a day , Taking Fluticasone Propionate 50 MCG/ACT Suspension 2 sprays intranasally for allergies once a day , Taking Singulair 10 MG Tablet 1 tab(s) orally once a day (in the evening) , Taking Baclofen 10 MG Tablet 1 tab(s) orally at bedtime for muscle spasm , Taking Furosemide 20 MG Tablet 1 tab(s) orally once a day as needed for swelling , Taking B-12 1000 MCG Tablet 1 tab(s) orally once a day , Taking Vitamin D (Ergocalciferol) 1.25 MG (25524 UT) Capsule 1 cap(s) orally once a week , Taking Calcium+D3 250 MG-3.125 MCG TABLET 1 TAB(S) ORALLY 2 TIMES A DAY , Notes to Pharmacist: *Please review and pick correct strength-formulation from [employer] options. If intended option is not shown, discontinue and re-order from Quick Search*, Taking ALBUTEROL (EQV-PROAIR HFA) 90 MCG/INH AEROSOL 2 PUFF(S) INHALED EVERY 6 HOURS NEEDED , Notes to Pharmacist: *Please review for potential replacement for e-prescription and drug interaction check*, Taking Levothyroxine Sodium 200 MCG Tablet 1 tab(s) orally once a day , Taking Cetirizine HCl 10 MG Tablet 1 tab(s) orally once a day , Taking Gabapentin 300 MG Capsule 1 cap(s) orally 2 times a day for nerve pain , Taking Diclofenac Sodium 75 MG Tablet Delayed Release 1 tab(s) orally 2 times a day for joint pain , Taking Linzess 290 MCG Capsule 1 cap(s) orally once a day , Discontinued Ondansetron 4 MG Tablet Disintegrating 1 tablet on the tongue and allow to dissolve Orally every 8 hours As needed nausea/vomiting., Discontinued Promethazine-DM 6.25-15 MG/5ML Syrup 5 mL orally every 8 hours As needed cough., Medication List reviewed and reconciled with the patient * Allergies: N .K.D.A. Objective: * Vitals: N urse:sw, Pain:0, Temp:97.9, RR:18, HR:80, BP:110/72, Ht: 5 ft 4 in, Wt:156, BMI:26.77. * Examination: E NT/Respiratory: General Appearance : w ell nourished and hydrated, alert.? Ears: a uditory canals normal bilaterally, air fluid level bilat but without purulence or erythema. Nose : c ongested. Oral Cavity n o erythema or exudate seen on pharynx. Neck : n o cervical lymphadenopathy, thyroid is asymmetric larger on the right. Heart : R RR, normal S1 S2, no murmurs. Lungs : c lear to auscultation bilaterally, no crackles or wheezes. Abdomen : s oft, NT/ND, BS present. Skin : c lear without rashes. Assessment: * Assessment: 1. H ypothyroidism, unspecified type - E03.9 (Primary) 2 . V itamin D deficiency - E55.9 3 . B 12 deficiency - E53.8 4 . O steopenia of multiple sites - M85.89 5 . A llergic rhinitis due to other allergen - J30.89 6. C hronic constipation - K59.09 7 . P rimary osteoarthritis of left hip - M16.12 8 . G oiter - E04.9 9 . R outine medical exam - Z00.00 Plan: * Treatment: Value Reference Range G LUCOSE 85 65-99 - mg/dL * U JUSTINA NITROGEN (BUN) 12 7-25 - mg/dL * C REATININE 0.68 0.50-1.03 - mg/dL * B UN/CREATININE RATIO SEE NOTE: 6-22 - (calc) * S ODIUM 140 135-146 - mmol/L * P OTASSIUM 3.8 3.5-5.3 - mmol/L * C HLORIDE 105 98-110 - mmol/L * C ARBON DIOXIDE 24 20-32 - mmol/L * C ALCIUM 9.6 8.6-10.4 - mg/dL * P ROTEIN, TOTAL 7.3 6.1-8.1 - g/dL * A LBUMIN 4.6 3.6-5.1 - g/dL * G LOBULIN 2.7 1.9-3.7 - g/dL (calc ) * A LBUMIN/GLOBULIN RATIO 1.7 1.0-2.5 - (calc) * B ILIRUBIN, TOTAL 0.6 0.2-1.2 - mg/dL * A LKALINE PHOSPHATASE 100 37-153 - U/L * A ST 15 10-35 - U/L * A LT 10 6-29 - U/L * E GFR 103 > OR = 60 - mL/min/1 .73m2 * Cande Langley 05/21/2025 10:36:48 AM EDT > Patient informed. Picking up B12 OTCThis lab was reviewed by Cande Langley on 05/21/2025 at 10:37 AM EDT ?LAB: CBC (INCLUDES DIFF/PLT) (6465)* Value Reference Range W TIFFANY BLOOD CELL COUNT 7.3 3.8-10.8 - Thousan d/uL * R ED BLOOD CELL COUNT 4.03 3.80-5.10 - Million/ uL * H EMOGLOBIN 12.0 11.7-15.5 - g/dL * H EMATOCRIT 39.2 35.0-45.0 - % * M CV 97.3 80.0-100.0 - fL * M CH 29.8 27.0-33.0 - pg * M CHC 30.6 L 32.0-36.0 - g/dL * R DW 13.2 11.0-15.0 - % * P LATELET COUNT 293 140-400 - Thousand/u L * N EUTROPHILS 53.4 - % * A BSOLUTE NEUTROPHILS 3898 5492-9553 - cells/uL * L YMPHOCYTES 39.0 - % * A BSOLUTE LYMPHOCYTES 2847 850-3900 - cells/uL * M ONOCYTES 5.5 - % * A BSOLUTE MONOCYTES 402 200-950 - cells/uL * E OSINOPHILS 1.4 - % * A BSOLUTE EOSINOPHILS 102 15-500 - cells/uL * B ASOPHILS 0.7 - % * A BSOLUTE BASOPHILS 51 0-200 - cells/uL * M PV 11.4 7.5-12.5 - fL * Cande Langley 05/21/2025 10:36:48 AM EDT > Patient informed. Picking up B12 OTCThis lab was reviewed by Cande Langley on 05/21/2025 at 10:37 AM EDT ?LAB: TSH W/REFLEX TO FT4 (66999)* Value Reference Range T SH W/REFLEX TO FT4 3.54 - mIU/L * Cande Langley 05/21/2025 10:36:48 AM EDT > Patient informed. Picking up B12 OTCThis lab was reviewed by Cande Langley on 05/21/2025 at 10:37 AM EDT Clinical Notes: Reassurance that the area where she has been tender recently is not related to her thyroid, her ultrasound of the thyroid is up-to-date due to be repeated again in August. We will update her labs today??2.?Vitamin D deficiency?LAB: COMPREHENSIVE METABOLIC PANEL (00228)* Value Reference Range G LUCOSE 85 65-99 - mg/dL * U JUSTINA NITROGEN (BUN) 12 7-25 - mg/dL * C REATININE 0.68 0.50-1.03 - mg/dL * B UN/CREATININE RATIO SEE NOTE: 05-17 - (calc) * S ODIUM 140 135-146 - mmol/L * P OTASSIUM 3.8 3.5-5.3 - mmol/L * C HLORIDE 105 98-110 - mmol/L * C ARBON DIOXIDE 24 20-32 - mmol/L * C ALCIUM 9.6 8.6-10.4 - mg/dL * P ROTEIN, TOTAL 7.3 6.1-8.1 - g/dL * A LBUMIN 4.6 3.6-5.1 - g/dL * G LOBULIN 2.7 1.9-3.7 - g/dL (calc ) * A LBUMIN/GLOBULIN RATIO 1.7 1.0-2.5 - (calc) * B ILIRUBIN, TOTAL 0.6 0.2-1.2 - mg/dL * A LKALINE PHOSPHATASE 100 37-153 - U/L * A ST 15 10-35 - U/L * A LT 10 6-29 - U/L * E GFR 103 > OR = 60 - mL/min/1 .73m2 * Cande Langley 05/21/2025 10:36:48 AM EDT > Patient informed. Picking up B12 OTCThis lab was reviewed by Cande Langley on 05/21/2025 at 10:37 AM EDT ?LAB: CBC (INCLUDES DIFF/PLT) (7099)* Value Reference Range W TIFFANY BLOOD CELL COUNT 7.3 3.8-10.8 - Thousan d/uL * R ED BLOOD CELL COUNT 4.03 3.80-5.10 - Million/ uL * H EMOGLOBIN 12.0 11.7-15.5 - g/dL * H EMATOCRIT 39.2 35.0-45.0 - % * M CV 97.3 80.0-100.0 - fL * M CH 29.8 27.0-33.0 - pg * M CHC 30.6 L 32.0-36.0 - g/dL * R DW 13.2 11.0-15.0 - % * P LATELET COUNT 293 140-400 - Thousand/u L * N EUTROPHILS 53.4 - % * A BSOLUTE NEUTROPHILS 3898 3503-7212 - cells/uL * L YMPHOCYTES 39.0 - % * A BSOLUTE LYMPHOCYTES 2847 850-3900 - cells/uL * M ONOCYTES 5.5 - % * A BSOLUTE MONOCYTES 402 200-950 - cells/uL * E OSINOPHILS 1.4 - % * A BSOLUTE EOSINOPHILS 102 15-500 - cells/uL * B ASOPHILS 0.7 - % * A BSOLUTE BASOPHILS 51 0-200 - cells/uL * M PV 11.4 7.5-12.5 - fL * Cande Langley 05/21/2025 10:36:48 AM EDT > Patient informed. Picking up B12 OTCThis lab was reviewed by Cande Langley on 05/21/2025 at 10:37 AM EDT ?LAB: VITAMIN B12 (927)* Value Reference Range V ITAMIN B12 543 330-6067 - pg/mL * Cande Langley 05/21/2025 10:36:48 AM EDT > Patient informed. Picking up B12 OTCThis lab was reviewed by Cande Langley on 05/21/2025 at 10:37 AM EDT ?LAB: VITAMIN D,25-OH,TOTAL,IA (39474)* Value Reference Range V ITAMIN D,25-OH,TOTAL,IA 50 30-100 - ng/mL * Cande Langley 05/21/2025 10:36:48 AM EDT > Patient informed. Picking up B12 OTCThis lab was reviewed by Cande Langley on 05/21/2025 at 10:37 AM EDT Notes: recommend consult with [facility], Mineral Metabolism clinic at for their opinion regarding herpersistently low levels and osteopenia. ??3.?B12 deficiency ?LAB: COMPREHENSIVE METABOLIC PANEL (95096)* Value Reference Range G LUCOSE 85 65-99 - mg/dL * U JUSTINA NITROGEN (BUN) 12 7-25 - mg/dL * C REATININE 0.68 0.50-1.03 - mg/dL * B UN/CREATININE RATIO SEE NOTE: 05-17 - (calc) * S ODIUM 140 135-146 - mmol/L * P OTASSIUM 3.8 3.5-5.3 - mmol/L * C HLORIDE 105 98-110 - mmol/L * C ARBON DIOXIDE 24 20-32 - mmol/L * C ALCIUM 9.6 8.6-10.4 - mg/dL * P ROTEIN, TOTAL 7.3 6.1-8.1 - g/dL * A LBUMIN 4.6 3.6-5.1 - g/dL * G LOBULIN 2.7 1.9-3.7 - g/dL (calc ) * A LBUMIN/GLOBULIN RATIO 1.7 1.0-2.5 - (calc) * B ILIRUBIN, TOTAL 0.6 0.2-1.2 - mg/dL * A LKALINE PHOSPHATASE 100 37-153 - U/L * A ST 15 10-35 - U/L * A LT 10 6-29 - U/L * E GFR 103 > OR = 60 - mL/min/1 .73m2 * Cande Langley 05/21/2025 10:36:48 AM EDT > Patient informed. Picking up B12 OTCThis lab was reviewed by Cande Langley on 05/21/2025 at 10:37 AM EDT ?LAB: CBC (INCLUDES DIFF/PLT) (3399)* Value Reference Range W TIFFANY BLOOD CELL COUNT 7.3 3.8-10.8 - Thousan d/uL * R ED BLOOD CELL COUNT 4.03 3.80-5.10 - Million/ uL * H EMOGLOBIN 12.0 11.7-15.5 - g/dL * H EMATOCRIT 39.2 35.0-45.0 - % * M CV 97.3 80.0-100.0 - fL * M CH 29.8 27.0-33.0 - pg * M CHC 30.6 L 32.0-36.0 - g/dL * R DW 13.2 11.0-15.0 - % * P LATELET COUNT 293 140-400 - Thousand/u L * N EUTROPHILS 53.4 - % * A BSOLUTE NEUTROPHILS 3898 9284-7016 - cells/uL * L YMPHOCYTES 39.0 - % * A BSOLUTE LYMPHOCYTES 2847 850-3900 - cells/uL * M ONOCYTES 5.5 - % * A BSOLUTE MONOCYTES 402 200-950 - cells/uL * E OSINOPHILS 1.4 - % * A BSOLUTE EOSINOPHILS 102 15-500 - cells/uL * B ASOPHILS 0.7 - % * A BSOLUTE BASOPHILS 51 0-200 - cells/uL * M PV 11.4 7.5-12.5 - fL * Cande Langley 05/21/2025 10:36:48 AM EDT > Patient informed. Picking up B12 OTCThis lab was reviewed by Cande Langley on 05/21/2025 at 10:37 AM EDT ?LAB: VITAMIN B12 (927)* Value Reference Range V ITAMIN B12 617 253-1054 - pg/mL * Cande Langley 05/21/2025 10:36:48 AM EDT > Patient informed. Picking up B12 OTCThis lab was reviewed by Cande Langley on 05/21/2025 at 10:37 AM EDT ?LAB: VITAMIN D,25-OH,TOTAL,IA (71436)* Value Reference Range V ITAMIN D,25-OH,TOTAL,IA 50 30-100 - ng/mL * Cande Langley 05/21/2025 10:36:48 AM EDT > Patient informed. Picking up B12 OTCThis lab was reviewed by Cande Langley on 05/21/2025 at 10:37 AM EDT 4.?Allergic rhinitis due to other allergen? Notes: continue singson, romane, zyrtec. 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 consider new referral? 5.?Chronic constipation? Notes: continue Linzess??6.?Primary osteoarthritis of left hip? Notes: diclofenac as needed? Referral To: ?Reason:New referral to [facility] orthopedics...she lost insurance when we referred her previously 7.?Goiter? Notes: causing some pressure sensation in her neck...will first see [facility] clinic and pending their evaluation, consider Surgical Endo team at ??8.?Routine medical exam?LAB: LIPID PANEL, STANDARD (7600)* Value Reference Range T RIGLYCERIDES 145 <150 - mg/dL * C HOLESTEROL, TOTAL 191 <200 - mg/dL * H DL CHOLESTEROL 49 L > OR = 50 - mg/dL * L DL-CHOLESTEROL 116 H - mg/dL (calc) * C HOL/HDLC RATIO 3.9 <5.0 - (calc) * N ON HDL CHOLESTEROL 142 H <130 - mg/dL (calc) * Cande Langley 05/21/2025 10:36:48 AM EDT > Patient informed. Picking up B12 OTCThis lab was reviewed by Cande Langley on 05/21/2025 at 10:37 AM EDT * Follow Up: 6 Months * * Sign off status: Completed true * Provider: MIHIR Joyce Date: 05/19/2025 Generated for Praveena wood/Tor/Anabelleitting on: 06/12/2025 11:02 AM EDT History and Physical Notes * Examination Category Sub-Category Detail Notes Category Not es ENT/Respiratory Oral Cavity no erythema or exudate se en on pharynx Ears: auditory canals norm al bilaterally, air fluid level bilat but without purulence or erythema Neck : no cervical lymphade nopathy, thyroid is asymmetric larger on the right Heart : RRR, normal S1 S2, n o murmurs Lungs : clear to auscultatio n bilaterally, no crackles or wheezes Abdomen : soft, NT/ND, BS pres ent General Appearance : well nourished and hydrated, alert Nose : congested Skin : clear without rashes Consultation Request Notes Referral Date Referring Provider Referred Provider Not es 05/19/2025 Johana Vaughn , New referral to [facility] orthopedics...she lost insurance when we referred her previously
--- OUTSIDE RECORDS SUMMARY | 2025-06-12 11:03 | XMS_ITS | Patient Health Record ---
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 Phone Jg Edwards Primary Care Provider Angie Beal Unavailable [phone] Johana Vaughn Unavailable [phone] Johana Santoyo Unavailable [phone] Migration, Provider Unavailable Unavailable Allergies No Known Allergies Results Component Value Reference Range Notes LIPID PANEL, STANDARD (7600) Reviewed date:05/21/2025 10:37:06 AM Interpretation: Performing Lab:[facility] [address] [facility] Cent[facility]IL[address] Chris Rodriguez Notes/Report: NON-FASTING; NON-FASTING; NON-FASTING; NON-FASTING; NON-FAST FASTING:YES FASTING: YES CHOLESTEROL, TOTAL 191 <200 mg/dL HDL CHOLESTEROL 49 > OR = 50 mg/dL TRIGLYCERIDES 145 <150 mg/dL LDL-CHOLESTEROL 116 Reference range: <100 Desirable range <100 mg/dL for primary prevention; <70 mg/dL for patients with CHD or diabetic patients with > or = 2 CHD risk factors. LDL-C is now calculated using the Alex-Mercedes calculation, which is a validated novel method providing better accuracy than the Friedewald equation in the estimation of LDL-C. Alex SINCLAIR et al. JAYLIN. 2013;310(19): 9877-4420 (http://education.Deliv.Accela/faq/NGX082) CHOL/HDLC RATIO 3.9 <5.0 (calc) NON HDL CHOLESTEROL 142 <130 mg/dL (calc) For patients with diabetes plus 1 major ASCVD risk factor, treating to a non-HDL-C goal of <100 mg/dL (LDL-C of <70 mg/dL) is considered a therapeutic option. COMPREHENSIVE METABOLIC PANE (46079) Reviewed date:05/21/2025 10:37:06 AM Interpretation: Performing Lab:[facility], [facility]NxotQX[address] Chris Rodriguez Notes/Report: NON-FASTING; NON-FASTING; NON-FASTING; NON-FASTING; [...] ALT 10 6-29 U/L CBC (INCLUDES DIFF/PLT) (139 9) Reviewed date:05/21/2025 10:37:06 AM Interpretation: Performing Lab:[facility], [address], [facility] HospitalIbsaJB[address] Chris Rodriguez Notes/Report: NON-FASTING; NON-FASTING; NON-FASTING; NON-FASTING; [...] MPV 11.4 7.5-12.5 fL ABSOLUTE NEUTROPHILS [phone] cells/uL ABSOLUTE LYMPHOCYTES 2847 850-3900 cells/uL ABSOLUTE MONOCYTES 402 200-950 cells/uL ABSOLUTE EOSINOPHILS 102 15-500 cells/uL ABSOLUTE BASOPHILS 51 0-200 cells/uL NEUTROPHILS 53.4 LYMPHOCYTES 39.0 MONOCYTES 5.5 EOSINOPHILS 1.4 BASOPHILS 0.7 VITAMIN B12 (927) Reviewed date:05/21/2025 10:37:06 AM Interpretation: Performing Lab:[facility] [id number] [employer], AboutMyStarCicgEK[address] Chris Rodriguez Notes/Report: NON-FASTING; NON-FASTING; NON-FASTING; NON-FASTING; NON-FAST FASTING:YES FASTING: YES VITAMIN B12 827 619-0844 pg/mL Please Note: Although the reference range for vitamin B12 is 200-1100 pg/mL, it has been reported that between 5 and 10% of patients with values between 200 and 400 pg/mL may experience neuropsychiatric and hematologic abnormalities due to occult B12 deficiency; less than 1% of patients with values above 400 pg/mL will have symptoms. TSH W/REFLEX TO FT4 (82250) Reviewed date:05/21/2025 10:37:06 AM Interpretation: Performing Lab:[facility] [address], AboutMyStarJcveZF[address] Chris Rodriguez Notes/Report: NON-FASTING; NON-FASTING; NON-FASTING; NON-FASTING; NON-FAST FASTING:YES FASTING: YES TSH W/REFLEX TO FT4 3.54 Reference Range > or = 20 Years 0.40-4.50 Ranges First trimester 0.26-2.66 Second trimester 0.55-2.73 Third trimester 0.43-2.91 VITAMIN D,25-OH,TOTAL,IA (17 306) Reviewed date:05/21/2025 10:37:06 AM Interpretation: Performing Lab:CB, [facility] [address] [facility], Surya ManzanaresJwwuBP[address] Chris Rodriguez Notes/Report: NON-FASTING; NON-FASTING; NON-FASTING; NON-FASTING; [...] D, (D2,D3), LC/MS/MS is recommended: order code 14503 (patients >2yrs). See Note 1 Note 1 For additional information, please refer to http://education.SatNav Technologies.Accela/faq/BIN933 (This link is being provided for informational/ educational purposes only.) Rapid Covid/Flu A-B Combo Reviewed date:11/20/2024 10:26:54 AM Interpretation: Performing Lab: Notes/Report: Rapid Covid Neg Flu A Pos Flu B Neg Mammogram : Bilateral Reviewed date:08/15/2024 03:19:55 PM Interpretation: Performing Lab: Notes/Report: X ray : Hip, Left Reviewed date:02/09/2025 04:42:56 PM Interpretation: Performing Lab: Notes/Report: Medications Medication SIG (Take, Route, Frequency, Duration) Notes Start Date End Date Status Omeprazole 20 MG 1 cap(s) orally once a day; Duration: 30 day(s) 01/29/2020 Active Calcium+D3 250 MG-3.125 MCG 1 TAB(S) ORALLY 2 TIMES A DAY; Duration: 30 DAYS *Please review and pick correct strength-formulati on from Oncovision options. If intended option is not shown, discontinue and re-order from Quick Search* 05/27/2024 Active ALBUTEROL (EQV-PROAIR HFA) 90 MCG/INH 2 PUFF(S) INHALED EVERY 6 HOURS NEEDED; Duration: 30 DAYS *Please review for potential replacement for e-prescription and drug interaction check* Active Levothyroxine Sodium 200 MCG 1 tab(s) orally once a day 11/23/2023 Active Fluticasone Propionate 50 MCG/ACT 2 sprays intranasally for allergies once a day; Duration: 30 days 01/31/2016 Active Singulair 10 MG 1 tab(s) orally once a day (in the evening); Duration: 30 days Active hydrOXYzine Pamoate 25 MG 1 cap(s) orally every 6 hours PRN anxiety 04/09/2018 Active Cetirizine HCl 10 MG 1 tab(s) orally once a day; Duration: 30 days Active FLUoxetine HCl 40 MG 1 cap(s) orally once a day; Duration: 30 day(s) 10/20/2019 Active Gabapentin 300 MG 1 cap(s) orally 2 times a day for nerve pain; Duration: 30 days 03/30/2025 Active B-12 1000 MCG 1 tab(s) orally once a day; Duration: 30 days 08/01/2019 Active Vitamin D (Ergocalciferol) 1.25 MG (83155 UT) 1 cap(s) orally once a week; Duration: 28 days 08/01/2019 Active Baclofen 10 MG 1 tab(s) orally at bedtime for muscle spasm; Duration: 30 days Active Diclofenac Sodium 75 MG 1 tab(s) orally 2 times a day for joint pain; Duration: 30 days Active Furosemide 20 MG 1 tab(s) orally once a day as needed for swelling; Duration: 30 days Active Linzess 290 MCG 1 cap(s) orally once a day; Duration: 30 days Active Problems Problem Type SNOMED Code ICD Code Onset Dates Problem Status W/U Status Risk Notes Problem Chronic pain (97210964) Other chronic pain (G89.29) Active confirmed Problem Chronic serous otitis media (63933576) Chronic serous otitis media, right ear (H65.21) Active confirmed Problem Backache (455021177) Dorsalgia, unspecified (M54.9) Active confirmed Problem Heartburn (20999350) Heartburn (R12) Active confirmed Problem Vitamin D deficiency (62208865) Vitamin D deficiency (E55.9) Active confirmed Problem Sialadenitis (15728791) Sialadenitis (K11.20) Active confirmed Problem Osteoporosis (89326693) Osteoporosis (M81.0) Active confirmed Problem Sore throat (574299364) Sore throat (J02.9) Active confirmed Problem Inflammation of left sacroiliac joint (5816202985) Inflammation of left sacroiliac joint (M46.1) Active confirmed Problem Allergic rhinitis (59726466) Chronic allergic rhinitis (J30.9) Active confirmed Problem Goiter (2598409) Goiter (E04.9) Active confirme d Problem Thyroid nodule (537210446) Thyroid nodule (E04.1) Active confirmed Problem Chronic cough (00414411) Chronic cough (R05) Active confirmed Problem Mixed anxiety and depressive disorder (155607287) Anxiety associated with depression (F41.8) Active confirmed Problem Thyroiditis (57112153) Thyroiditis (E06.9) Active confirmed Problem Chronic serous otitis media (78269311) Bilateral chronic serous otitis media (H65.23) Active confirmed Problem History of anemia (446952970) History of anemia (Z86.2) Active confirmed Problem Peripheral edema (43416830) Peripheral edema (R60.9) Active confirmed Problem Hiatal hernia (54290216) Hiatal hernia (K44.9) Active confirmed Problem Inflammation of right sacroiliac joint (8989735493) Inflammation of right sacroiliac joint (M46.1) Active confirmed Problem Uncomplicated mild persistent asthma (959838566) Mild persistent asthma without complication (J45.30) Active confirmed Problem Degeneration of lumbosacral intervertebral disc (58762832) DDD (degenerative disc disease), lumbosacral (M51.37) Active confirmed Problem Allergic rhinitis due to allergen (35012893) Allergic rhinitis due to other allergen (J30.89) Active confirmed Problem Anemia (483804799) Anemia, unspecified type (D64.9) Active confirmed Problem Vaginal dryness (13676103) Vaginal dryness, menopausal (N95.1) Active confirmed Problem Hypothyroidism (37184377) Hypothyroidism, unspecified type (E03.9) Active confirmed Problem Herpes simplex type 1 infection (284402617) 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) Active confirmed Problem Migraine without aura, not refractory (616471080) Migraine NEC/not intrcbl (G43.809) Active confirmed Problem Chronic constipation (368642300) Chronic constipation (K59.09) Active confirmed Problem Sciatica (03515554) Acute left-s ided low back pain with left-sided sciatica (M54.42) Active confirmed Problem Localized, primary osteoarthritis of the pelvic region and thigh (697068601) Primary osteoarthritis of left hip (M16.12) Active confirmed Problem Gastroesophageal reflux disease (disorder) (343244428) Chronic GERD (K21.9) Active confirmed Problem Seasonal allergic rhinitis (465281514) Seasonal allergic rhinitis, unspecified allergic rhinitis trigger (J30.2) Active confirmed Problem Serum vitamin B12 low (281743590) Low vitamin B12 level (E53.8) Active confirmed Problem mammogram - screening (85541778) Screening mammogram, encounter for (Z12.31) Active confirmed Problem Herpes simplex viral infection (58846930) 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) Active confirmed Problem History of malignant neoplasm of cervix (336439364) History of cervical cancer (Z85.41) Active confirmed Problem Hyperlipidemia (49764621) Hyperlipidemia, mild (E78.5) Active confirmed Vital Signs Heart Rate 80 /min 05/19/2025 Temperature 97.9 degrees Fahrenheit 05/19/2025 Blood pressure diastolic 72 mm Hg 05/19/2025 Height 5 ft 4 in in 05/19/2025 Blood pressure systolic 110 mm Hg 05/19/2025 Weight 156 lbs 05/19/2025 BMI 26.77 kg/m2 05/19/2025 Encounters Encounter Location Date Provider Diagnosis [facility] [address] [place] [address] 12/30/2024 Johana Vaughn Vitamin D deficiency E55.9 ; Osteoporosis M81.0 ; Hypothyroidism, unspecified type E03.9 and Hyperlipidemia, mild E78.5 [facility] [address] [facility] [address] [place] [address] 02/07/2025 Jg Edwards [facility] [address] [facility] [address] [place] [address] 02/12/2025 Johana Vaughn Acute non-recurrent sinusitis, unspecified location J01.90 [facility] [address] [facility] [address] [place] [address] 03/30/2025 Johana Vaughn [facility] [address] [facility] [address] [place] [address] 05/11/2025 Johana Vaughn Chronic constipation K59.09 [facility] [address] [facility] [address] [place] [address] 05/19/2025 Johana Vaughn [facility] [address] [facility] [address] [place] [address] 07/29/2024 Johana Vaughn Left acute otitis media H66.92 ; Hypothyroidism, unspecified type E03.9 ; Goiter E04.9 and Visit for screening mammogram Z12.31 [facility] [address] [facility] [address] [place] [address] 11/20/2024 Johana Santoyo Acute febrile illnes s R50.9 and Influenza A J10.1 [facility] [address] [facility] [address] [place] [address] 12/30/2024 Angie Beal Acute non-recurrent pansinusitis J01.40 [facility] [address] [facility] [address] [place] [address] 04/08/2025 Johana Santoyo Viral URI with cough J06.9 [facility] [address] [facility] [address] [place] [address] 05/19/2025 Johana Vauhgn Vitamin D deficiency E55.9 ; Hypothyroidism, unspecified type E03.9 ; B12 deficiency E53.8 ; Osteopenia of multiple sites M85.89 ; Allergic rhinitis due to other allergen J30.89 ; Chronic constipation K59.09 ; Primary osteoarthritis of left hip M16.12 ; Goiter E04.9 and Routine medical exam Z00.00 [facility] [address] [facility] [address] [place] [address] 02/05/2025 Johana Vaughn Left hip pain M25.55 2 and Acute non-recurrent sinusitis, unspecified location J01.90 [facility] [address] [place] [address] 02/28/2025 Provider Migration Assessments Encounter Date Diagnosis (ICD Code) Assessment Notes Treatment Notes Treatment Clinical Notes Section Notes 07/29/2024 Left acute otitis media (ICD-10 - H66.92) 07/29/2024 Hypothyroidism, unspecified type (ICD-10 - E03.9) 11/20/2024 Influenza A (ICD-10 - J10.1) Influenza positive. Discussed the etiology & expected course of the flu. Cough syrup and Zofran ordered, instructed to not take at the same time. Discussed risk and benefit of Tamiflu and patient agrees to proceed with prescription. Discussed the rationale for not prescribing antibiotics. Continue supportive care with PRN antipyretics, OTC cough/cold meds, Mucinex, nasal saline rinses/Neti pot with distilled water, salt water gargles, cough drops, and humidifier. Encourage PO hydration. Patient must be fever and vomit free x 24 hours without fever reducing medications before going back to work/school. Discussed the signs and symptoms of worsening condition and need for reassessment in clinic or ED. Discussed if no improvement in 72 hours, she should return to clinic for evaluation. Keep previously scheduled physical exam or f/u sooner PRN. Patient voices understanding and is agreeable to this plan. 11/20/2024 Acute febrile illness (ICD-10 - R50.9) 12/30/2024 Vitamin D deficiency (ICD-10 - E55.9) 02/05/2025 Left hip pain (ICD-10 - M25.552) last imaging over 3 years ago, update and refer to ortho vs PT 02/05/2025 Acute non-recurrent sinusitis, unspecified location (ICD-10 - J01.90) Rec add plain mucinex, continue nasal sprays and singulair, additional round of antibiotics as noted 04/08/2025 Viral URI with cough (ICD-10 - J06.9) Reassurance. Use heating pad on rigth side where sore from coughing. PRN Ibuprofen. Discussed the etiology & expected course of a viral URI and discussed the rationale for not prescribing antibiotics. Continue supportive care with PRN antipyretics, nasal saline rinses/Neti pot with distilled water, salt water gargles, cough drops, and humidifier. Encourage PO hydration. Discussed the signs and symptoms of worsening condition and need for reassessment in clinic or ED. Flonase bid and Zyrtec at night. Keep previously scheduled physical exam or f/u sooner PRN. Patient/family voice understanding and are agreeable to this plan. Patient to call if no improvement by Sunday or worsening symptoms at that time and I will order an antibiotic if needed. 05/11/2025 Chronic constipation (ICD-10 - K59.09) 05/19/2025 Vitamin D deficiency (ICD-10 - E55.9) [...] August. We will update her labs today 02/12/2025 Acute non-recurrent sinusitis, unspecified location (ICD-10 - J01.90) 12/30/2024 Acute non-recurrent pansinusitis (ICD-10 - J01.40) Discussed the etiology and expected course of acute sinusitis. Discussed the rationale for antibiotics use and the importance of completing the Augmentin prescription as prescribed. Dexamethasone given IM. Discussed supportive care with antihistamines and appropriate decongestants. Discussed the signs and symptoms of worsening infection that may indicate need for reassessment in clinic/ED. 05/19/2025 B12 deficiency (ICD-10 - E53.8) 12/30/2024 Osteoporosis (ICD-10 - M81.0) 07/29/2024 Goiter (ICD-10 - E04.9) 07/29/2024 Visit for screening mammogram (ICD-10 - Z12.31) 12/30/2024 Hypothyroidism, unspecified type (ICD-10 - E03.9) 05/19/2025 Osteopenia of multiple sites (ICD-10 - M85.89) 05/19/2025 Allergic rhinitis due to other allergen (ICD-10 - J30.89) continue singulair, flonase, zyrtec. she has seen branch assistant previously, + for several environmental allergens but they did not recommend immunotherapy at that time. consider new referral 12/30/2024 Hyperlipidemia, mild (ICD-10 - E78.5) 05/19/2025 Chronic constipation (ICD-10 - K59.09) continue Linzess 05/19/2025 Primary osteoarthritis of left hip (ICD-10 - M16.12) diclofenac as needed 05/19/2025 Goiter (ICD-10 - E04.9) causing some pressure sensation in her neck...will first see [facility] clinic and pending their evaluation, consider Surgical Endo team at 05/19/2025 Routine medical exam (ICD-10 - Z00.00) 11/20/2024 Other Patient discuss ed with Attending Dr. Edwards who agrees with the plan of care above. Plan Of Treatment Pending Test Test Name Order Date X ray : Spines, Cervical 08/12/2015 X ray : Spines, Cervical 10/07/2015 X ray : Foot, Right 10/01/2014 Physical Therapy 01/31/2021 Physical Therapy 10/06/2014 H-CBC with AUTO DIFF 02/06/2014 H-VITAMIN B12 02/06/2014 H-CMP 02/06/2014 H-BUN 03/06/2014 H-CREATININE SERUM 03/06/2014 H-TSH 10/15/2013 H-TSH 11/11/2012 H-TSH 02/06/2014 H-TSH 01/31/2016 H-FREE T4 02/06/2014 C-MISC CULTURE 07/10/2014 M-Complete Blood Count Auto Diff 019 M-Complete Blood Count Auto Diff 021 M-Comprehensive Metabolic Panel 11/07/20 M-Basic Metabolic Panel 04/02/2019 M-Lipid Panel 11/07/2021 M-Free T4 (Free Thyroxine) 04/02/2019 M-Free T4 (Free Thyroxine) 12/02/2018 M-Thyroid Stimulating Hormone 04/02/2019 M-Thyroid Stimulating Hormone 12/02/2018 M-Thyroid Stimulating Hormone 11/07/2021 M-HIV (1&2) Antibody Rapid 07/21/2019 M-Parathyroid Hormone Intact 12/16/2020 M-Vitamin B12 12/09/2020 M-Vitamin B12 11/07/2021 M-Vitamin B12 04/30/2023 M-Vitamin D 25 Hydroxy 04/30/2023 M-Vitamin D 25 Hydroxy 11/07/2021 M-Vitamin D 25 Hydroxy 12/09/2020 M-RA Latex Turbid. 04/30/2023 M-HSV 1 and 2-Specific Ab, IgG 9 M-HSV, IgM I/II Combination 04/02/2019 M-COVID WITH RESPIRATORY PANEL 0 PTH, INTACT AND CALCIUM (8837) 5 LIPID PANEL, STANDARD (7600) 12/30/2024 COMPREHENSIVE METABOLIC PANEL (13559) PHOSPHATE ( PHOSPHORUS) (718) 12/30/19 25 CBC (INCLUDES DIFF/PLT) (6399) 5 C-PEPTIDE (372) 12/30/2024 TSH W/REFLEX TO FT4 (36509) 12/30/2024 VITAMIN D,25-OH,TOTAL,IA [phone]) [phone] Insurance Providers Payer Name Payer Address Payer Phone Subscriber Number Group Number Insured Name Patient Relationship to Insured Coverage Start Date Coverage End Date [facility] [address] [phone] [id number] Rebecca Simms Self - patient is the insured Medications Administered Medication Instructions Date of Administration Dosage Notes Ceftriaxone 500 11/23/2014 500 Ceftriaxone 500 01/20/2015 500 mg Ceftriaxone 500 05/11/2016 500 mg Dexamethasone 4mg Injection 12/30/2024 4 mL Kenalog 40mg 04/19/2017 40 mg Kenalog 40mg 03/20/2018 40 mg Triamcinolone Acetonide 40mg Injection 10/11/2018 1 mL Kenalog 07/22/2014 Kenalog 11/23/2014 1 Kenalog 01/20/2015 1 mL Kenalog 10/07/2015 1 mL Kenalog 05/11/2016 1 Kenalog 09/05/2016 1 mL Kenalog 11/14/2016 1 mL Kenalog 02/09/2017 1 mL Medical (General) History Medical History History ICD Code migraine headache Hypothyroidism cervical cancer-hysterectomy Asthma and allergies Anxiety Thyroid nodule s/p FNA which was nondiag nostic per Dr Stallworth GERD Chronic Constipation Vitamin D Deficiency Chronic lower extremity pain Colonoscopy with Dr Thompson 05/2021 Surgical History Surgery Date(Month/Year) Hysterectomy with right oopherectomy T & A Groin Abscess I&D EGD w esophageal stretching 10/2024 Hospitalization History Reason Date(Month/Year) Abscess of groin
--- NOTE | 2025-06-12 11:21 | ECG_ITS ---
APPROVED REPORT Exam: Resting ECG HR:58 bpm ECG Measurements Heart Rate 58 AXES ME 155 P 59 QRSd 82 QRS 65 QT 412 T 60 QTc 410 Conclusion SINUS BRADYCARDIA BORDERLINE ECG UNCONFIRMED REPORT Electronically signed by : Jg Edwards MD 06/19/2025 07:58:25
--- NOTE | 2025-06-12 11:25 | XR_ITS ---
FINAL REPORT CLINICAL HISTORY: Pre op Surgery hip sx 06/16/25 hx copd denies cp or soa COMPARISON: 08/03/2021 FINDINGS: CHEST 2 VIEWS No acute pulmonary density is evident. There is no evidence of effusion or other pleural disease. The mediastinum has a normal appearance. The cardiac silhouette is unremarkable. IMPRESSION: Unremarkable chest exam. Reviewed, Interpreted and Dictated by Светлана Cifuentes MD Transcribed by Raven James Authenticated and [facility]
[2025-06-12 11:35] LABS: Hematocrit 33.0 % (37.0-47.0); Hemoglobin 11.1 g/dL (12.2-16.2); Immature Granulocytes % 0.2 %; Mean Corpuscular HGB Conc 33.6 g/dL (31.8-35.4); Mean Corpuscular Hemoglobin 30.1 pg (27.0-31.2); Mean Corpuscular Volume 89.4 fl (81-99); Nucleated Red Blood Cells % 0 %; Platelet Count 358 K/mm3 (142-424); Red Blood Count 3.69 M/mm3 (4.20-5.40); Red Cell Distribution Width-SD 44.4 fL; White Blood Count 9.5 K/mm3 (4.8-10.8)
[2025-06-12 11:39] LABS: Albumin Level 4.2 g/dl (3.5-5.0); Chloride 106 mmol/L (98-107); Potassium 3.8 mmoL/L (3.5-5.1); Sodium 137 mmol/L (136-145)
[2025-06-12 11:42] LABS: Alanine Aminotransferase 22 U/L (12-78); Albumin/Globulin Ratio 1.4 (1.1-1.8); Alkaline Phosphatase 97 U/L (38-126); Anion Gap 10.8 mEq/L (5-15); Aspartate Amino Transferase 28 U/L (14-36); Bilirubin,Total 0.4 mg/dl (0.2-1.3); Blood Urea Nitrogen 14 mg/dl (7-17); Calcium 9.0 mg/dl (8.4-10.2); Carbon Dioxide 24 mmol/L (22.0-30.0); Creatinine,Serum 0.70 mg/dl (0.52-1.04); Estimated Glomerular Filt Rate 87 ml/min (>60); GFR (African American) 105 ML/MIN (>60); Globulin 2.9 g/dL (1.3-3.2); Glucose 96 mg/dl (74-100); Total Protein,Serum 7.1 g/dl (6.3-8.2)
== END 2025-06-12 23:59 | disposition home or self-care (01) ==
LOC: PREOP 11:00
PROVIDERS: Physician Assistant; PCP Internal Medicine Adolescent Medicine; Visit Provider Orthopaedic Surgery
DX: Z01.810 Encounter for preprocedural cardiovascular examination (principal); Z01.811 Encounter for preprocedural respiratory examination; Z01.812 Encounter for preprocedural laboratory examination; M16.12 Unilateral primary osteoarthritis, left hip; R00.1 Bradycardia, unspecified; R94.31 Abnormal electrocardiogram [ECG] [EKG]
CPT/HCPCS: 71046; 80053; 85025; 93005

== ENCOUNTER 2025-06-16 09:07 | Day surgery (SDC) | payer OTHER, SELFPAY ==
[2025-06-12 13:17] VITALS: BMI 28.7
[2025-06-16 09:27] VITALS: BP 117/71; PULSE 84; RESP 17; TEMP 36.4; O2SAT 96
[2025-06-16] MEDS: LACTATED RINGERS 1000ML 1,000 ML 100 ML IV (09:33)
[2025-06-16] MEDS: TRIAMCINOLONE ACET 40MG/ML VIAL 40 MG (10:08)
[2025-06-16] MEDS: LIDOCAINE 1% 20ML MDV 20 ML (10:08)
[2025-06-16 10:16] VITALS: BP 98/62; PULSE 60; RESP 16; O2SAT 97
--- NOTE | 2025-06-16 10:17 | IR_ITS ---
FINAL REPORT CLINICAL HISTORY: LEFT HIP INJECTION > fluoro time 0:06 mGy1.84 FINDINGS: A single fluoroscopic spot image of the left hip was obtained for injection. IMPRESSION: 0.06 seconds of fluoroscopy time. mGy 1.84 Reviewed, Interpreted and Dictated by Светлана Cifuentes MD Transcribed by Ina Dias Authenticated and [facility]
[2025-06-16] MEDS: IOPAMIDOL-370 (76%);100ML BOTTLE 10 ML IV (10:21)
[2025-06-16 10:26] VITALS: BP 97/63; PULSE 59; RESP 16; O2SAT 98
[2025-06-16 10:36] VITALS: BP 99/67; PULSE 67; RESP 18; O2SAT 97
--- NOTE | 2025-06-16 10:44 | EXP.OP.NOTE ---
Date of procedure: 06/16/25 Pre-op Diagnosis:: Left hip osteoarthritis Post-op Diagnosis:: Same Procedure performed:: Left hip injection with arthrogram, x-ray guidance for needle placement Surgeon:: Milton Grady DO LIFESTYLE CONSULTANT:: Larry Hartley Anesthesia: MAC Estimated blood loss (mL): 0 Operative findings:: See dictation Operative note:: Patient identified preoperatively. Left hip marked with yes my initials. Transferred operative suite. Placed upon the radiolucent bed. Given sedation. X-ray was brought into identify the left hip. Left hip was prepped and draped in normal sterile fashion. Once prepped and draped final operative timeout performed to identify proper patient procedure and extremity. Everyone involved the case agreed. Is no counter indication beginning. Once the hip joint was a identified 18-gauge spinal needle was used to go into the hip capsule with the proper trajectory confirmed on the x-ray once within the hip capsule arthrogram was performed with contrast to confirm needle placement x-ray guidance was used for needle placement hip was aspirated and injected with 80 mg of Kenalog 3 cc 1% lidocaine needle removed Band-Aid placed patient tolerated procedure well taken to stepdown in stable condition. Condition: stable Disposition: PACU Complications:: None apparent
[2025-06-16 10:46] VITALS: BP 99/75; PULSE 70; RESP 16; O2SAT 98
== END 2025-06-16 10:46 | disposition home or self-care (01) ==
PROVIDERS: PCP Nurse Practitioner Family; Visit Provider Orthopaedic Surgery
PROC: 3E0U3GC Introduction of Other Therapeutic Substance into Joints, Percutaneous Approach (ICD-10-PCS; CPT 20610; principal; 2025-06-16 11:00)
DX: M16.12 Unilateral primary osteoarthritis, left hip (principal); J44.9 Chronic obstructive pulmonary disease, unspecified; E04.9 Nontoxic goiter, unspecified; Z79.899 Other long term (current) drug therapy; Z79.890 Hormone replacement therapy
CPT/HCPCS: 27095; 73525; J2003; J2250; J2704; J3010; J3301; J7120; Q9967

== ENCOUNTER 2025-09-03 10:48 | Outpatient (CLI) | payer OTHER, SELFPAY ==
--- NOTE | 2025-09-03 11:00 | US_ITS ---
FINAL REPORT TECHNIQUE: Sonographic images of the thyroid gland were obtained in the longitudinal and transverse planes. CLINICAL HISTORY: history of thyroid nodule COMPARISON: 12/04/2023 FINDINGS: The right lobe measures 1.6 x 5.7 x 2.4 cm. The right lobe is heterogeneous and hyperemic. There is a 13 mm height echoic nodule in the upper pole which is unchanged. Additional hyperechoic nodules are stable. The left lobe measures 1.6 x 5.3 x 1.5 cm. The left lobe is heterogeneous and hyperemic. Hyperechoic nodules are unchanged from prior. The isthmus measures 5 mm. This is normal. IMPRESSION: Heterogeneous, hypervascular thyroid with stable bilateral hyperechoic nodules, favor thyroiditis and multinodular goiter. Reviewed, Interpreted and Dictated by Francheska Chacon MD Transcribed by Therese Cortes Authenticated and . [facility]
== END 2025-09-03 23:59 | disposition home or self-care (01) ==
LOC: RAD 10:48
PROVIDERS: PCP Nurse Practitioner Family; Visit Provider Nurse Practitioner
DX: E04.2 Nontoxic multinodular goiter (principal); R93.89 Abnormal findings on diagnostic imaging of other specified body structures
CPT/HCPCS: 76536